=== PATIENT | male | born 1945 | race Caucasian/White ===

== ENCOUNTER 2017-02-07 12:18 | Inpatient (IN) | payer MEDICARE, BC, MEDICAID ==
[2017-02-07] MEDS ORDERED: Sodium Chloride 0.9% 10 ML Syringe FLUSH PRN (12:23)
--- NOTE | 2017-02-07 13:04 | CT ---
Head CT Technique: Multiple axial sections through the brain were obtained. Intravenous contrast was not utilized. Comparison: Previous head CT exam of 10/17/15 is available. Findings: Ventricles along with basal cisterns and sulci over the convexities are mildly prominent. Sulci over the cerebellum are also mildly prominent. No abnormal parenchymal densities are seen. No evidence of intracranial hemorrhage. No midline shift or mass effect is seen. Atherosclerotic calcification is seen within the carotid siphon. Bone window settings were reviewed which shows no discrete calvarial abnormality. Minimal mucosal thickening is seen within the right maxillary sinus and ethmoid sinuses. Impression: 1. Mild generalized atrophy. 2. Sinus findings which are felt to be incidental. 3. No acute intracranial abnormality is identified. No significant change is seen from prior head CT exam. Diagnostic code #2
--- NOTE | 2017-02-07 13:09 | CR ---
Chest: Frontal view of the chest was obtained. Comparison: Previous chest x-ray of 07/06/16. Heart size appears within normal limits for portable technique. Tortuous thoracic aorta is seen. Lungs are clear without acute infiltrates. Previous sternotomy noted. Bony structures are grossly intact. Impression: 1. Incidental findings. Nothing acute is appreciated on portable chest x-ray. Diagnostic code #2
[2017-02-07] MEDS ORDERED: diphenhydrAMINE 50 MG/ML SDV IVPUSH ONE (13:49)
[2017-02-07] MEDS ORDERED: Levofloxacin/Dextrose 5%-Water 500 MG in Premix Bag 1 BAG IV ONE (15:20)
--- NOTE | 2017-02-07 15:39 | EDM.PDOC ---
ED HPI GENERAL MEDICAL PROBLEM - General Chief Complaint: Neurological Problem Stated Complaint: [facility] Time Seen by Provider: 02/07/17 12:23 Source of Information: Reports: Patient, Family, Alf Records, Other ( [facility]) History Limitations: Reports: Other (Can't talk much due to parkinson) - History of Present Illness INITIAL COMMENTS - FREE TEXT/NARRATIVE: The patient presents with a headache and possible dystonic reaction. The patient is a resident of [facility]. He has Parkinson's and progressive supranuclear ophthalmoplegia. He is on carbodopa and levadopa and Dr Koroma increased the dose 6 days ago. Today staff noticed he was looking to the upper right and he had contractions. He also complained of a headache. He communicates by some talking and through a book. He had a low grade temperature. He has no cough, chest pain, shortness of breath, abdominal pain, nausea or vomiting. He does have a PEG tube and marshall cath. Onset: Gradual Duration: Day(s): Location: Reports: Head Quality: Reports: Ache Severity: Moderate Improves with: Reports: None Worsens with: Reports: None Associated Symptoms: Denies: Chest Pain, Cough, Fever/Chills, Nausea/Vomiting, Shortness of Breath - Related Data Allergies Allergy/AdvReac Type Severity Reaction Status Date / Time No Known Allergies Allergy Verified 02/07/17 12:32 Home Meds: Home Meds Sennosides [Senna] 8.6 mg PO BEDTIME 10/17/15 [History] Bisacodyl [Dulcolax] 10 mg RECTAL Q3D 03/21/16 [History] Cyclobenzaprine [Flexeril] 10 mg PO BID 03/21/16 [History] Sennosides/Docusate Sodium [Senna-Docusate Sodium] 1 tab PO BID 03/21/16 [ History] Triamcinolone Acetonide [Triamcinolone Acetonide 0.5%] 1 applic TOP BID PRN [History] Omeprazole 20 mg PO DAILY 05/09/16 [History] Acetaminophen 650 mg PO Q4H PRN 07/01/16 [History] Carbidopa/Levodopa [Carbidopa-Levodopa 25-100 Tab] 1 tab PO BID@1200,1800 [History] Lidocaine 5% 1 applic TOP Q4H PRN 07/01/16 [History] rOPINIRole HCl [Requip] 8 mg PO BID 07/01/16 [History] Carbidopa/Levodopa [Carbidopa-Levodopa 25-250] 1 tab PO BID@0800,199902/07/17 [ History] rOPINIRole HCl [rOPINIRole] 5 mg PO DAILY@1500 02/07/17 [History] Past Medical History HEENT History: Reports: Hard of Hearing, Impaired Vision Other HEENT History: Hearing aids Cardiovascular History: Reports: Bypass, High Cholesterol, Hypertension Other Cardiovascular History: 2002 x2 Respiratory History: Reports: Pneumonia, Recurrent, Other (See Below) Other Respiratory History: aspiration d/t difficulty swallowing Gastrointestinal History: Reports: Chronic Constipation Genitourinary History: Reports: Neurogenic Bladder, Retention, Urinary Other Genitourinary History: chronic marshall Musculoskeletal History: Reports: Back Pain, Chronic, Osteoarthritis Neurological History: Reports: Other (See Below) Other Neuro History: progressive supranuclearpalsy Psychiatric History: Reports: Depression, Mood Swings Endocrine/Metabolic History: Reports: Other (See Below) Other Endocrine/Metabolic History: Graves Hematologic History: Reports: None Dermatologic History: Reports: Venous Stasis Dermatitis - Past Surgical History HEENT Surgical History: Reports: Tonsillectomy, Other (See Below) Cardiovascular Surgical History: Reports: Coronary Artery Bypass Social & Family History - Family History Family Medical History: Noncontributory - Tobacco Use Smoking Status *Q: Unknown Ever Smoked Years of Tobacco use: 20 Used Tobacco, but Quit: Yes Month Tobacco Last Used: 1986 Second Hand Smoke Exposure: No - Caffeine Use Caffeine Use: Reports: None - Recreational Drug Use Recreational Drug Use: No - Living Situation & Occupation Occupation: Employed ED ROS GENERAL - Review of Systems Review Of Systems: See Below Constitutional: Reports: No Symptoms HEENT: Reports: No Symptoms Respiratory: Reports: No Symptoms Cardiovascular: Reports: No Symptoms Endocrine: Reports: No Symptoms GI/Abdominal: Reports: No Symptoms : Reports: No Symptoms Musculoskeletal: Reports: No Symptoms Neurological: Reports: Headache, Other (Looks up and to the right and has more contractions) ED EXAM, NEURO - Physical Exam Exam: See Below Exam Limited By: No Limitations General Appearance: Alert, No Apparent Distress Eye Exam: Bilateral Eye: EOMI, PERRL Ears: Normal External Exam Nose: Normal Inspection Head Exam: Atraumatic, Normocephalic Neck: Normal Inspection Respiratory/Chest: No Respiratory Distress, Lungs Clear, Normal Breath Sounds Cardiovascular: Regular Rate, Rhythm, No Edema, No Murmur GI/Abdominal: Soft, Non-Tender, No Organomegaly, No Mass, Other (PEG tube in place with no erythema or drainage) Neurological: Alert, Other (He has bilateral 3/5 strength. He had a few episodes where he looked up and right and he had flexion of his arms. He also had some facial expresions with it.) Course - Vital Signs Last Recorded V/S: Last Vital Signs Temp 98.6 F 02/07/17 12:28 Pulse 89 02/07/17 12:28 Resp 16 02/07/17 12:28 BP 102/69 02/07/17 12:28 Pulse Ox 93 L 02/07/17 12:28 - Orders/Labs/Meds Orders: Active Orders 24 hr Category Date Time Status Cardiac Monitoring [RC] . DIRECTED Care 02/07/17 12:23 Active Peripheral IV Care [RC] . DIRECTED Care 02/07/17 12:23 Active CULTURE BLOOD [BC] Stat Lab 02/07/17 15:40 Received CULTURE BLOOD [BC] Stat Lab 02/07/17 15:49 Received CULTURE URINE [RM] Stat Lab 02/07/17 14:20 Received Sodium Chloride 0.9% [Saline Flush] Med 02/07/17 12:23 Active 10 ml FLUSH ASDIRECTED PRN Blood Culture x2 Reflex Set [OM.PC] Stat Oth 02/07/17 15:19 Ordered Peripheral IV Insertion Adult [OM.PC] Stat Oth 02/07/17 12:23 Ordered Medication Orders Sodium Chloride (Saline Flush) 10 ml FLUSH ASDIRECTED PRN PRN Reason: Keep Vein Open Last Admin: 02/07/17 12:39 Dose: 10 ml Labs: Laboratory Tests 02/07/17 02/07/17 02/07/17 Range/Units 12:44 12:44 14:17 WBC 9.41 H (4.23-9.07) K/mm3 RBC 4.44 L (4.63-6.08) M/mm3 Hgb 14.5 (13.7-17.5) gm/L Hct 42.7 (40.1-51.0) % MCV 96.2 H (79.0-92.2) fl MCH 32.7 H (25.7-32.2) pg MCHC 34.0 (32.2-35.5) g/dl RDW Std Deviation 44.4 H (35.1-43.9) fL Plt Count 208 (163-337) K/mm3 MPV 10.2 (9.4-12.3) fl Neut % (Auto) 69.5 H (34.0-67.9) % Lymph % (Auto) 19.9 L (21.8-53.1) % Humphreys % (Auto) 9.1 (5.3-12.2) % Eos % (Auto) 1.0 (0.8-7.0) Baso % (Auto) 0.3 (0.1-1.2) % Neut # (Auto) 6.54 H (1.78-5.38) K/mm3 Lymph # (Auto) 1.87 (1.32-3.57) K/mm3 Humphreys # (Auto) 0.86 H (0.30-0.82) K/mm3 Eos # (Auto) 0.09 (0.04-0.54) K/mm3 Baso # (Auto) 0.03 (0.01-0.08) K/mm3 Sodium 141 (136-145) mEq/L Potassium 3.8 (3.5-5.1) mEq/L Chloride 106 (98-107) mEq/L Carbon Dioxide 26 (21-32) mEq/L Anion Gap 12.8 (5-15) BUN 28 H (7-18) mg/dL Creatinine 1.2 (0.7-1.3) mg/dL Est Cr Clr Drug Dosing 62.87 mL/min Estimated GFR (MDRD) 60 (>60) mL/min BUN/Creatinine Ratio 23.3 H (14-18) Glucose 110 (80-115) mg/dL Calcium 9.0 (8.5-10.1) mg/dL Total Bilirubin 2.2 H (0.2-1.0) mg/dL AST 19 (15-37) U/L ALT 13 L (16-63) U/L Alkaline Phosphatase 125 H (46-116) U/L Troponin I < 0.017 (0.00-0.056) ng/mL Total Protein 7.1 (6.4-8.2) g/dl Albumin 3.6 (3.4-5.0) g/dl Globulin 3.5 gm/dL Albumin/Globulin Ratio 1.0 (1-2) Urine Color Yellow (Yellow) Urine Appearance Slt cloudy H (Clear) Urine pH 8.0 (5.0-8.0) Ur Specific Raven 1.020 (1.005-1.030) Urine Protein 1+ H (Negative) Urine Glucose (UA) Negative (Negative) Urine Ketones Negative (Negative) Urine Occult Blood 1+ H (Negative) Urine Nitrite Positive H (Negative) Urine Bilirubin Negative (Negative) Urine Urobilinogen 2.0 H (0.2-1.0) Ur Leukocyte Esterase 2+ H (Negative) Urine RBC 5-10 H (0-5) /hpf Urine WBC 75-100 H (0-5) /hpf Urine WBC Clumps Few (NOT SEEN) /hpf Ur Epithelial Cells 0-5 (0-5) /hpf Urine Bacteria Many H (FEW) /hpf Urine Mucus Not seen (FEW) /hpf Urine Yeast Not seen (NOT SEEN) Meds: Medications Generic Name Dose Route Start Last Admin Trade Name Freq PRN Reason Stop Dose Admin Sodium Chloride 10 ml 02/07/17 12:23 02/07/17 12:39 Saline Flush FLUSH 10 ml ASDIRECTED PRN Administration Keep Vein Open Discontinued Medications Generic Name Dose Route Start Last Admin Trade Name Freq PRN Reason Stop Dose Admin Diphenhydramine HCl 25 mg 02/07/17 13:49 02/07/17 13:56 Benadryl IVPUSH 02/07/17 13:50 25 mg ONETIME ONE Administration Hydromorphone HCl 0.5 mg 02/07/17 16:34 02/07/17 16:40 Dilaudid IVPUSH 02/07/17 16:35 0.5 mg ONETIME ONE Administration Levofloxacin/Dextrose 500 mg/ 100 mls @ 100 mls/hr 02/07/17 15:20 02/07/17 16 :18 Premix IV 02/07/17 16:19 100 mls/hr ONETIME ONE Administration - Re-Assessments/Exams Free Text/Narrative Re-Assessment/Exam: 02/07/17 18:23 I ordered an IV NS at 125mL/hr, labs, UA, CT of his head and chest x-ray. His CXR looks good. His CT of his brain shows mild generalized atrophy. Sinus finding which are felt to be incidental. No acute intracranial abnormality is identified. No change from prior CT. His WBC was elevated at 9.41. His Alk Phos was elevated at 125. His troponin is negative. His UA shows a UTI. I ordered urine cultures and blood cultures. He was having more contractures that looked tardive dyskinesia from the medicine. I gave him some benadryl 50mg IV and some levaquin 500mg IV. I talked with Dr Martínez and she accepted the patient. Departure - Departure Time of Disposition: 18:30 Disposition: Admitted As Inpatient 67 Condition: Fair Clinical Impression: Tardive dyskinesia, Parkinson disease Urinary tract infection Qualifiers: Urinary tract infection type: acute cystitis Hematuria presence: with hematuria Qualified Code(s): N30.01 - Acute cystitis with hematuria - Discharge Information - My Orders Last 24 Hours: My Active Orders 02/07/17 12:23 Cardiac Monitoring [RC] . DIRECTED Peripheral IV Care [RC] . DIRECTED Sodium Chloride 0.9% [Saline Flush] 10 ml FLUSH ASDIRECTED PRN Peripheral IV Insertion Adult [OM.PC] Stat 02/07/17 14:20 CULTURE URINE [RM] Stat 02/07/17 15:19 Blood Culture x2 Reflex Set [OM.PC] Stat 02/07/17 15:40 CULTURE BLOOD [BC] Stat 02/07/17 15:49 CULTURE BLOOD [BC] Stat - Assessment/Plan Last 24 Hours: My Active Orders 02/07/17 12:23 Cardiac Monitoring [RC] . DIRECTED Peripheral IV Care [RC] . DIRECTED Sodium Chloride 0.9% [Saline Flush] 10 ml FLUSH ASDIRECTED PRN Peripheral IV Insertion Adult [OM.PC] Stat 02/07/17 14:20 CULTURE URINE [RM] Stat 02/07/17 15:19 Blood Culture x2 Reflex Set [OM.PC] Stat 02/07/17 15:40 CULTURE BLOOD [BC] Stat 02/07/17 15:49 CULTURE BLOOD [BC] Stat
[2017-02-07] MEDS ORDERED: HYDROmorphone 0.5 MG/0.5 ML Syringe IVPUSH ONE (16:34)
[2017-02-07] MEDS ORDERED: LIDOCAINE 5% TOP PRN (19:59)
[2017-02-07] MEDS ORDERED: Triamcinolone Acetonide 0.5% Crm 15 GM Tube TOP PRN (19:59)
--- NOTE | 2017-02-07 19:59 | PCM.HP ---
H&P History of Present Illness - General Date of Service: 02/07/17 Admit Problem/Dx: Admission Diagnosis/Problem Admission Diagnosis/Problem UTI, Urinary tract infectious disease Source of Information: Family, Provider History Limitations: Reports: No Limitations - History of Present Illness Initial Comments - Free Text/Narative: 71 year old male with PMH Parkinson's, and Supranuclear Palsy has had a progression of his neurologic symptoms. He complains of a headache and has been having dystonic reactions. His PCP has recently been adjusting his medication. The patient has a AUTI, and will be admitted for treatment. He has a PEG tube that was placed approximately June 2016 and is currently on Jevity as well as free water. He aslo continues to eat by mouth nectar thick liquids and mechanical soft diet. Onset of Symptoms: Reports: Unknown/Unsure Duration of Symptoms: Reports: Day(s):, Getting Worse Location: Reports: Generalized Quality: Reports: Same as Previous Episode Improves with: Reports: Medication Worsens with: Reports: None Associated Symptoms: Reports: Confusion, Headaches - Related Data Allergies/Adverse Reactions: Allergies Allergy/AdvReac Type Severity Reaction Status Date / Time No Known Allergies Allergy Verified 02/07/17 12:32 Home Medications: Home Meds Sennosides [Senna] 8.6 mg PO BEDTIME 10/17/15 [History] Bisacodyl [Dulcolax] 10 mg RECTAL Q3D 03/21/16 [History] Cyclobenzaprine [Flexeril] 10 mg PO BID 03/21/16 [History] Sennosides/Docusate Sodium [Senna-Docusate Sodium] 1 tab PO BID 03/21/16 [ History] Triamcinolone Acetonide [Triamcinolone Acetonide 0.5%] 1 applic TOP BID PRN [History] Omeprazole 20 mg PO DAILY 05/09/16 [History] Acetaminophen 650 mg PO Q4H PRN 07/01/16 [History] Carbidopa/Levodopa [Carbidopa-Levodopa 25-100 Tab] 25 - 100 mg PO BID@1200,1800 07/01/16 [History] Lidocaine 5% 1 applic TOP Q4H PRN 07/01/16 [History] rOPINIRole HCl [Requip] 10 mg PO ,07/01/16 [History] Carbidopa/Levodopa [Carbidopa-Levodopa 25-250] 25 - 250 mg PO BID@0800,2000 [History] rOPINIRole HCl [Requip] 2 mg PO BID 02/07/17 [History] rOPINIRole HCl [rOPINIRole] 5 mg PO DAILY@1500 02/07/17 [History] Arginine/Glutamine/Calcium Hmb [Mayito Packet] 1 pack PO BIDMEALS 02/08/17 [ History] Bisacodyl [Dulcolax] 10 mg PO DAILY PRN 02/08/17 [History] Fructooligosaccharides/Polydex [Hyfiber with Fos Liquid] 1 oz PO DAILY 02/08/17 [History] Lactose-Reduced Food [Boost] 4 oz PO TIDMEALS 02/08/17 [History] Lactose-Reduced Food/Fiber [Jevity 1.5 Garth Liquid] 100 ml PO BIDMEALS 02/08/17 [ History] Lidocaine 5% 1 applic TOP BID PRN 02/08/17 [History] Mupirocin Oint [Bactroban Oint] 1 applic PEGTUBE DAILY 02/08/17 [History] Water 30 ml PEGTUBE BID 02/08/17 [History] Past Medical History HEENT History: Reports: Hard of Hearing, Impaired Vision Other HEENT History: Hearing aids Cardiovascular History: Reports: Bypass, High Cholesterol, Hypertension Other Cardiovascular History: 2002 Respiratory History: Reports: Pneumonia, Recurrent, Other (See Below) Other Respiratory History: aspiration d/t difficulty swallowing Gastrointestinal History: Reports: Chronic Constipation Genitourinary History: Reports: Neurogenic Bladder, Retention, Urinary Other Genitourinary History: chronic marshall Musculoskeletal History: Reports: Back Pain, Chronic, Osteoarthritis Neurological History: Reports: Other (See Below) Other Neuro History: progressive supranuclearpalsy Psychiatric History: Reports: Depression, Mood Swings Endocrine/Metabolic History: Reports: Other (See Below) Other Endocrine/Metabolic History: Graves Hematologic History: Reports: None Dermatologic History: Reports: Venous Stasis Dermatitis - Past Surgical History HEENT Surgical History: Reports: Tonsillectomy, Other (See Below) Cardiovascular Surgical History: Reports: Coronary Artery Bypass Social & Family History - Family History Family Medical History: Noncontributory - Tobacco Use Smoking Status *Q: Unknown Ever Smoked Years of Tobacco use: 20 Used Tobacco, but Quit: Yes Month Tobacco Last Used: 1986 Second Hand Smoke Exposure: No - Caffeine Use Caffeine Use: Reports: None - Recreational Drug Use Recreational Drug Use: No - Living Situation & Occupation Occupation: Employed H&P Review of Systems - Review of Systems: Review Of Systems: See Below General: Reports: Weakness HEENT: Reports: No Symptoms Pulmonary: Reports: No Symptoms Cardiovascular: Reports: No Symptoms Gastrointestinal: Reports: No Symptoms Genitourinary: Reports: No Symptoms Musculoskeletal: Reports: No Symptoms Skin: Reports: No Symptoms Psychiatric: Reports: No Symptoms Neurological: Reports: No Symptoms Hematologic/Lymphatic: Reports: No Symptoms Immunologic: Reports: No Symptoms Exam - Exam Exam: See Below - Vital Signs Vital Signs: Last Vital Signs Temp 37.0 C 02/07/17 12:28 Pulse 89 02/07/17 12:28 Resp 16 02/07/17 12:28 BP 102/69 02/07/17 12:28 Pulse Ox 93 L 02/07/17 12:28 Weight: 87.997 kg - Exam Quality Assessment: Urinary Catheter General: Alert, Oriented, Cooperative HEENT: Nares Patent, Normal Nasal Septum, Pupils Equal, Pupils Reactive, Glasses , PERRLA Neck: Supple, Trachea Midline Lungs: Normal Respiratory Effort, Decreased Breath Sounds Cardiovascular: Regular Rate, Regular Rhythm GI/Abdominal Exam: Normal Bowel Sounds, Soft, Non-Tender, No Organomegaly, No Distention (Male) Exam: Deferred Rectal (Males) Exam: Deferred Back Exam: Normal Inspection Extremities: Normal Inspection, Non-Tender Skin: Warm Neurological: Cranial Nerves Intact Neuro Extensive - Mental Status: Alert Neuro Extensive - Motor, Sensory, Reflexes: CN II-XII Intact Psychiatric: Alert - Patient Data Result Diagrams: 02/08/17 05:49 02/08/17 05:49 *Q Meaningful Use (ADM) - VTE *Q VTE Criteria *Q: - Stroke *Q Stroke Criteria *Q: - AMI *Q AMI Criteria *Q: - Problem List (1) Marshall catheter in place SNOMED Code(s): 306033568 ICD Code: Z92.89 - PERSONAL HISTORY OF OTHER MEDICAL TREATMENT Status: Acute Current Visit: Yes (2) Supranuclear palsy SNOMED Code(s): 89167741 ICD Code: G23.1 - PROGRESSIVE SUPRANUCLEAR OPHTHALMOPLEGIA Status: Acute Current Visit: Yes (3) Hypertension SNOMED Code(s): 63898825 ICD Code: I10 - ESSENTIAL (PRIMARY) HYPERTENSION Status: Acute Current Visit: Yes (4) Hyperlipidemia SNOMED Code(s): 70603220 ICD Code: E78.5 - HYPERLIPIDEMIA, UNSPECIFIED Status: Acute Current Visit : Yes (5) CAD (coronary artery disease) SNOMED Code(s): 51884590 ICD Code: I25.10 - ATHSCL HEART DISEASE OF [place] CORONARY ARTERY W/O ANG PCTRS Status: Acute Current Visit: Yes (6) Parkinson disease SNOMED Code(s): 57104044 ICD Code: G20 - PARKINSON'S DISEASE Status: Acute Current Visit: Yes (7) Tardive dyskinesia SNOMED Code(s): 120378143 ICD Code: G24.01 - DRUG INDUCED SUBACUTE DYSKINESIA Status: Acute Current Visit: Yes (8) Urinary tract infection SNOMED Code(s): 27500578 ICD Code: N39.0 - URINARY TRACT INFECTION, SITE NOT SPECIFIED Status: Acute Priority: High Current Visit: Yes Qualifiers: Urinary tract infection type: acute cystitis Hematuria presence: with hematuria Qualified Code(s): N30.01 - Acute cystitis with hematuria Problem List Initiated/Reviewed/Updated: Yes Orders Last 24hrs: Active Orders 24 hr Category Date Time Status Patient Status [ADT] Routine ADT 02/07/17 19:07 Active Medication Orders Sodium Chloride (Saline Flush) 10 ml FLUSH ASDIRECTED PRN PRN Reason: Keep Vein Open Last Admin: 02/07/17 12:39 Dose: 10 ml Assessment/Plan Comment:: Impression: AUTI Progression of Parkinson's 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 DVT/GI prophylaxis
[2017-02-07] MEDS ORDERED: Sodium Chloride 0.9% 1,000 ML IV ONE ×2 (20:08→23:21)
[2017-02-07] MEDS ORDERED: rOPINIRole 1 MG Tab PO SCH (21:00)
[2017-02-07] MEDS: Cyclobenzaprine 10 MG Tab PO SCH (22:52)
[2017-02-07] MEDS: Bisacodyl 10 MG Supp RECTAL SCH (22:58)
[2017-02-07] MEDS ORDERED: ROPINIROLE 4 MG PO SCH (23:00)
[2017-02-07] MEDS ORDERED: Carbidopa/Levodopa 10-100 MG Tab PO ONE (23:56)
[2017-02-08] MEDS ORDERED: ROPINIROLE 2 MG PO SCH ×2 (00:15→07:00)
[2017-02-08] MEDS: Carbidopa/Levodopa 25-250 MG Tab PO SCH ×2 (00:21→12:05)
[2017-02-08] MEDS: Sodium Chloride 0.9% 1,000 ML IV ONE ×2 (00:38→07:35)
[2017-02-08] MEDS ORDERED: Sodium Chloride 0.9% 1,000 ML IV SCH (00:41)
[2017-02-08] MEDS: Pantoprazole 40 MG Tab.CR PO SCH (07:01)
[2017-02-08] MEDS: Sodium Chloride 0.9% 1,000 ML IV SCH ×2 (07:04→17:24)
[2017-02-08] MEDS: Cyclobenzaprine 10 MG Tab PO SCH ×2 (08:18→20:03)
[2017-02-08] MEDS: Enoxaparin 40 MG/0.4 ML Syringe SUBCUT SCH (08:18)
[2017-02-08] MEDS: Mupirocin Oint 22 GM Tube TOP SCH (11:38)
[2017-02-08] MEDS: WATER SCH ×2 (11:39→20:04)
[2017-02-08] MEDS: Carbidopa/Levodopa 25-100 MG Tab PO SCH ×4 (11:39→20:03)
[2017-02-08] MEDS ORDERED: Magnesium Sulfate/Water 2 GM in Premix Bag 1 BAG IV ONE (11:41)
[2017-02-08] MEDS ORDERED: Magnesium Hydroxide 400 MG/5 ML Susp 30 ML Cup PO ONE (12:07)
[2017-02-08] MEDS: Levofloxacin/Dextrose 5%-Water 750 MG in Premix Bag 1 BAG IV SCH (13:04)
[2017-02-08] MEDS ORDERED: rOPINIRole 1 MG Tab PO SCH (15:00)
[2017-02-08] MEDS ORDERED: ROPINIROLE 5 MG PO SCH (15:00)
[2017-02-08] MEDS: Acetaminophen 325 MG Tab PO PRN (17:23)
--- NOTE | 2017-02-08 19:39 | PCM.PN ---
- General Info Date of Service: 02/08/17 Functional Status: Reports: Tolerating Diet - Review of Systems General: Reports: Weakness HEENT: Reports: No Symptoms Pulmonary: Reports: No Symptoms Cardiovascular: Reports: No Symptoms Gastrointestinal: Reports: No Symptoms Genitourinary: Reports: No Symptoms Musculoskeletal: Reports: No Symptoms Skin: Reports: No Symptoms Neurological: Reports: No Symptoms Psychiatric: Reports: No Symptoms - Patient Data Vitals - Most Recent: Last Vital Signs Temp 37.7 C 02/08/17 17:23 Pulse 90 02/08/17 15:49 Resp 14 02/08/17 15:49 BP 132/80 02/08/17 15:49 Pulse Ox 93 L 02/08/17 15:49 Weight - Most Recent: 87.997 kg I&O - Last 24 Hours: Intake & Output 02/08/17 02/08/17 02/08/17 06:59 14:59 22:59 Intake Total 2255 1747 Output Total 1600 900 Balance 655 847 Lab Results Last 24 Hours: Laboratory Results - last 24 hr 02/08/17 02/08/17 02/08/17 Range/Units 00:45 05:49 05:49 WBC 8.19 (4.23-9.07) K/mm3 RBC 4.35 L (4.63-6.08) M/mm3 Hgb 14.4 (13.7-17.5) gm/L Hct 42.0 (40.1-51.0) % MCV 96.6 H (79.0-92.2) fl MCH 33.1 H (25.7-32.2) pg MCHC 34.3 (32.2-35.5) g/dl RDW Std Deviation 44.4 H (35.1-43.9) fL Plt Count 193 (163-337) K/mm3 MPV 10.7 (9.4-12.3) fl Neut % (Auto) 65.0 (34.0-67.9) % Lymph % (Auto) 23.9 (21.8-53.1) % [place] % (Auto) 9.2 (5.3-12.2) % Eos % (Auto) 1.5 (0.8-7.0) Baso % (Auto) 0.4 (0.1-1.2) % Neut # (Auto) 5.33 (1.78-5.38) K/mm3 Lymph # (Auto) 1.96 (1.32-3.57) K/mm3 [place] # (Auto) 0.75 (0.30-0.82) K/mm3 Eos # (Auto) 0.12 (0.04-0.54) K/mm3 Baso # (Auto) 0.03 (0.01-0.08) K/mm3 Sodium 141 (136-145) mEq/L Potassium 4.0 (3.5-5.1) mEq/L Chloride 108 H (98-107) mEq/L Carbon Dioxide 23 (21-32) mEq/L Anion Gap 14.0 (5-15) BUN 21 H (7-18) mg/dL Creatinine 1.1 (0.7-1.3) mg/dL Est Cr Clr Drug Dosing 68.59 mL/min Estimated GFR (MDRD) > 60 (>60) mL/min BUN/Creatinine Ratio 19.1 H (14-18) Glucose 86 (80-115) mg/dL Lactic Acid (0.4-2.0) mmol/L Calcium 8.3 L (8.5-10.1) mg/dL Magnesium 1.5 L (1.8-2.4) mg/dl C-Reactive Protein 0.4 (<1.0) mg/dL MRSA (PCR) Negative 02/08/17 Range/Units 05:49 WBC (4.23-9.07) K/mm3 RBC (4.63-6.08) M/mm3 Hgb (13.7-17.5) gm/L Hct (40.1-51.0) % MCV (79.0-92.2) fl MCH (25.7-32.2) pg MCHC (32.2-35.5) g/dl RDW Std Deviation (35.1-43.9) fL Plt Count (163-337) K/mm3 MPV (9.4-12.3) fl Neut % (Auto) (34.0-67.9) % Lymph % (Auto) (21.8-53.1) % [place] % (Auto) (5.3-12.2) % Eos % (Auto) (0.8-7.0) Baso % (Auto) (0.1-1.2) % Neut # (Auto) (1.78-5.38) K/mm3 Lymph # (Auto) (1.32-3.57) K/mm3 [place] # (Auto) (0.30-0.82) K/mm3 Eos # (Auto) (0.04-0.54) K/mm3 Baso # (Auto) (0.01-0.08) K/mm3 Sodium (136-145) mEq/L Potassium (3.5-5.1) mEq/L Chloride (98-107) mEq/L Carbon Dioxide (21-32) mEq/L Anion Gap (5-15) BUN (7-18) mg/dL Creatinine (0.7-1.3) mg/dL Est Cr Clr Drug Dosing mL/min Estimated GFR (MDRD) (>60) mL/min BUN/Creatinine Ratio (14-18) Glucose (80-115) mg/dL Lactic Acid 0.6 (0.4-2.0) mmol/L Calcium (8.5-10.1) mg/dL Magnesium (1.8-2.4) mg/dl C-Reactive Protein (<1.0) mg/dL MRSA (PCR) Med Orders - Current: Current Medications Acetaminophen (Tylenol) 650 mg PO Q4H PRN PRN Reason: Pain Last Admin: 02/08/17 17:23 Dose: 650 mg Bisacodyl (Dulcolax) 10 mg RECTAL Q3D [facility] Last Admin: 02/07/17 22:58 Dose: 10 mg Carbidopa/Levodopa (Sinemet 25-100 Mg) 1 tab PO QID [facility] Last Admin: 02/08/17 17:24 Dose: 1 tab Cyclobenzaprine HCl (Flexeril) 10 mg PO BID [facility] Last Admin: 02/08/17 08:18 Dose: 10 mg Enoxaparin Sodium (Lovenox) 40 mg SUBCUT DAILY [facility] Last Admin: 02/08/17 08:18 Dose: 40 mg Levofloxacin/Dextrose 750 mg/ (Premix) 150 mls @ 100 mls/hr IV Q24H [facility] Last Admin: 02/08/17 13:04 Dose: 100 mls/hr Sodium Chloride (Normal Saline) 1,000 mls @ 70 mls/hr IV ASDIRECTED [facility] Last Admin: 02/08/17 17:24 Dose: 70 mls/hr Vancomycin HCl 1 gm/ Sodium (Chloride) 250 mls @ 250 mls/hr IV Q12H [facility] Mupirocin (Bactroban Oint) 0 gm TOP DAILY [facility] Last Admin: 02/08/17 11:38 Dose: 1 applic Non-Formulary Medication (Ropinirole Hcl) 2 mg PO BID [facility] Pantoprazole Sodium (Protonix) 40 mg PO DAILY@0700 [facility] Last Admin: 02/08/17 07:01 Dose: 40 mg Lidocaine 5% 1 (Ointment) 0 each TOP Q4H PRN PRN Reason: Other Ropinirole 5 Mg Tab (Patient's Own) 0 each PO DAILY@1500 [facility] Last Admin: 02/08/17 14:47 Dose: 1 each Ropinirole 2 Mg Tab (Patient's Own) 0 each PO BID@0700,2100 [facility] Water 30 Ml 0 each .XX BID [facility] Last Admin: 02/08/17 11:39 Dose: 30 each Senna/Docusate Sodium (Senna Plus) 1 tab PO BID [facility] Last Admin: 02/08/17 08:18 Dose: 1 tab Sodium Chloride (Saline Flush) 10 ml FLUSH ASDIRECTED PRN PRN Reason: Keep Vein Open Last Admin: 02/07/17 12:39 Dose: 10 ml Triamcinolone Acetonide (Triamcinolone Acetonide 0.5%) 0 gm TOP BID PRN PRN Reason: psoriasis Vancomycin HCl (Pharmacy To Dose - Vancomycin) 1 dose .XX ASDIRECTED [facility] Discontinued Medications Carbidopa/Levodopa (Sinemet 25-250 Mg) 1 tab PO BID@0800,2000 [facility] Last Admin: 02/08/17 12:05 Dose: Not Given Carbidopa/Levodopa (Sinemet 10-100 Mg) 2 tab PO ONETIME ONE Stop: 02/07/17 23:57 Last Admin: 02/08/17 00:21 Dose: 2 tab Diphenhydramine HCl (Benadryl) 25 mg IVPUSH ONETIME ONE Stop: 02/07/17 13:50 Last Admin: 02/07/17 13:56 Dose: 25 mg Hydromorphone HCl (Dilaudid) 0.5 mg IVPUSH ONETIME ONE Stop: 02/07/17 16:35 Last Admin: 02/07/17 16:40 Dose: 0.5 mg Levofloxacin/Dextrose 500 mg/ (Premix) 100 mls @ 100 mls/hr IV ONETIME ONE Stop: 02/07/17 16:19 Last Admin: 02/07/17 16:18 Dose: 100 mls/hr Sodium Chloride (Normal Saline) 1,000 mls @ 999 mls/hr IV ASDIRECTED ONE Stop: 02/07/17 21:08 Last Admin: 02/07/17 21:46 Dose: 999 mls/hr Sodium Chloride (Normal Saline) 1,000 mls @ 100 mls/hr IV ONETIME ONE Stop: 02/08/17 09:20 Last Admin: 02/07/17 23:36 Dose: 999 mls/hr Sodium Chloride (Normal Saline) 1,000 mls @ 70 mls/hr IV ASDIRECTED ONE Stop: 02/08/17 13:38 Last Admin: 02/08/17 07:35 Dose: Not Given Sodium Chloride (Normal Saline) 1,000 mls @ 100 mls/hr IV ASDIRECTED [facility] Stop: 02/08/17 06:41 Last Admin: 02/08/17 00:50 Dose: 100 mls/hr Magnesium Sulfate 2 gm/ Premix 50 mls @ 25 mls/hr IV ONETIME ONE Stop: 02/08/17 13:40 Last Admin: 02/08/17 14:47 Dose: 25 mls/hr Vancomycin HCl 1 gm/ Sodium (Chloride) 250 mls @ 250 mls/hr IV ONETIME ONE Stop: 02/08/17 19:21 Magnesium Hydroxide (Milk Of Magnesia) 30 ml PO ONETIME ONE Stop: 02/08/17 12:08 Last Admin: 02/08/17 13:04 Dose: 30 ml Ropinirole 4mg Tab * (*Patient's Own) 2 each PO BID@0700,2100 [facility] Last Admin: 02/08/17 07:28 Dose: Not Given Ropinirole 2 Mg Tab (Patient's Own) 1 each PO BID [facility] Last Admin: 02/08/17 00:22 Dose: 1 each Ropinirole 2 Mg Tab (Patient's Own) 1 each PO BID@0700,2100 [facility] Last Admin: 02/08/17 07:02 Dose: 1 each Non-Formulary Medication (Lactose-Reduced Food/Fiber [Jevity 1.5 Garth Liquid]) 100 ml PO BIDMEALS [facility] Ropinirole HCl (Requip) 5 mg PO DAILY@1500 [facility] Ropinirole HCl (Requip) 8 mg PO BID [facility] Last Admin: 02/08/17 07:28 Dose: Not Given - Exam Quality Assessment: DVT Prophylaxis General: Alert, Oriented, No Acute Distress HEENT: Pupils Reactive, EOMI Lungs: Normal Respiratory Effort Cardiovascular: Regular Rate GI/Abdominal Exam: Normal Bowel Sounds, Soft, Non-Tender, No Organomegaly, No Distention (Male) Exam: Deferred Back Exam: Normal Inspection Extremities: Normal Inspection Skin: Warm Neurological: No New Focal Deficit Psy/Mental Status: Alert, Normal Affect, Normal Mood - Problem List & Annotations (1) Rubin catheter in place SNOMED Code(s): 458386882 Code(s): Z92.89 - PERSONAL HISTORY OF OTHER MEDICAL TREATMENT Status: Acute Current Visit: Yes (2) Supranuclear palsy SNOMED Code(s): 10956061 Code(s): G23.1 - PROGRESSIVE SUPRANUCLEAR OPHTHALMOPLEGIA Status: Acute Current Visit: Yes (3) Hypertension SNOMED Code(s): 35211203 Code(s): I10 - ESSENTIAL (PRIMARY) HYPERTENSION Status: Acute Current Visit: Yes (4) Hyperlipidemia SNOMED Code(s): 94767251 Code(s): E78.5 - HYPERLIPIDEMIA, UNSPECIFIED Status: Acute Current Visit : Yes (5) CAD (coronary artery disease) SNOMED Code(s): 22414336 Code(s): I25.10 - ATHSCL HEART DISEASE OF [place] CORONARY ARTERY W/O ANG PCTRS Status: Acute Current Visit: Yes (6) Parkinson disease SNOMED Code(s): 66711355 Code(s): G20 - PARKINSON'S DISEASE Status: Acute Current Visit: Yes (7) Tardive dyskinesia SNOMED Code(s): 140827366 Code(s): G24.01 - DRUG INDUCED SUBACUTE DYSKINESIA Status: Acute Current Visit: Yes (8) Urinary tract infection SNOMED Code(s): 28934305 Code(s): N39.0 - URINARY TRACT INFECTION, SITE NOT SPECIFIED Status: Acute Priority: High Current Visit: Yes Qualifiers: Urinary tract infection type: acute cystitis Hematuria presence: with hematuria Qualified Code(s): N30.01 - Acute cystitis with hematuria - Problem List Review Problem List Initiated/Reviewed/Updated: Yes - My Orders Last 24 Hours: My Active Orders 02/07/17 19:59 Acetaminophen [Tylenol] 650 mg PO Q4H PRN Patient's Own Medication [Ptom] 0 each TOP Q4H PRN Triamcinolone Acetonide [Triamcinolone Acetonide 0.5%] 0 gm TOP BID PRN 02/07/17 20:00 Bisacodyl [Dulcolax] 10 mg RECTAL Q3D 02/07/17 20:03 Bedrest [RC] QSHIFT Vital Signs [RC] 03,,,02/07/17 20:06 Neuro Check [RC] BID 02/07/17 20:12 Consult to Case Management [CONS] Routine Consult to Occupational Therapy [OT Evaluation and Treatment] [CONS] Routine Consult to Physical Therapy [PT Evaluation and Treatment] [CONS] Routine 02/07/17 20:13 Antiembolic Devices [RC] DAILY AMANDA Hose [Antiembolic Hose] [OM.PC] Routine 02/07/17 20:14 Aspiration Precautions [RC] QSHIFT Head of Bed Elevation [RC] QSHIFT 02/07/17 20:29 Swallow Screen [Nursing Bedside Swallow Screen] [RC] ASDIRECTED 02/07/17 20:37 Code Status [Resuscitation Status] Routine 02/07/17 21:00 Cyclobenzaprine [Flexeril] 10 mg PO BID Docusate Sodium/Sennosides [Senna Plus] 1 tab PO BID 02/08/17 06:42 Sodium Chloride 0.9% [Normal Saline] 1,000 ml IV ASDIRECTED 02/08/17 07:00 Pantoprazole [ProTONIX] 40 mg PO DAILY@0700 02/08/17 07:03 Patient's Own Medication [Ptom] 0 each PO BID@0700,2100 02/08/17 09:00 Enoxaparin [Lovenox] 40 mg SUBCUT DAILY 02/08/17 11:20 Up to Chair [RC] ASDIRECTED 02/08/17 12:00 Carbidopa/Levodopa [Sinemet 25-100 mg] 1 tab PO QID 02/08/17 14:00 Levofloxacin/Dextrose 5%-Water [Levaquin in D5W 750 MG/150 ML] 750 mg Premix Bag 1 bag IV Q24H 02/08/17 15:00 Patient's Own Medication [Ptom] 0 each PO DAILY@1500 02/08/17 18:30 Vancomycin Pharmacy to Dose [Pharmacy to Dose - Vancomycin] 1 dose .XX ASDIRECTED 02/08/17 21:00 rOPINIRole HCl 2 mg PO BID 02/08/17 Lunch National Dysphagia Diet [DIET] 02/09/17 05:00 BASIC METABOLIC PANEL,BMP [CHEM] DAILY CBC WITH AUTO DIFF [HEME] DAILY CRP [C-REACTIVE PROTEIN] [CHEM] DAILY LACTIC ACID [CHEM] DAILY MG [MAGNESIUM] [CHEM] DAILY 02/09/17 08:00 Vancomycin 1 gm Sodium Chloride 0.9% [Normal Saline] 250 ml IV Q12H 02/10/17 05:00 BASIC METABOLIC PANEL,BMP [CHEM] DAILY CBC WITH AUTO DIFF [HEME] DAILY CRP [C-REACTIVE PROTEIN] [CHEM] DAILY LACTIC ACID [CHEM] DAILY MG [MAGNESIUM] [CHEM] DAILY 02/11/17 05:00 BASIC METABOLIC PANEL,BMP [CHEM] DAILY CBC WITH AUTO DIFF [HEME] DAILY CRP [C-REACTIVE PROTEIN] [CHEM] DAILY MG [MAGNESIUM] [CHEM] DAILY 02/12/17 05:00 BASIC METABOLIC PANEL,BMP [CHEM] DAILY CBC WITH AUTO DIFF [HEME] DAILY CRP [C-REACTIVE PROTEIN] [CHEM] DAILY MG [MAGNESIUM] [CHEM] DAILY 02/13/17 05:00 BASIC METABOLIC PANEL,BMP [CHEM] DAILY CBC WITH AUTO DIFF [HEME] DAILY CRP [C-REACTIVE PROTEIN] [CHEM] DAILY MG [MAGNESIUM] [CHEM] DAILY - Plan Plan:: Impression: AUTI Progression of Parkinson's 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 DVT/GI prophylaxis
[2017-02-08] MEDS: ROPINIROLE PO SCH (20:03)
[2017-02-08] MEDS ORDERED: ROPINIROLE HCL 2 MG PO SCH (21:00)
[2017-02-09] MEDS: Acetaminophen 325 MG Tab PO PRN (01:13)
[2017-02-09] MEDS ORDERED: Bisacodyl 10 MG Supp RECTAL ONE (04:13)
[2017-02-09] MEDS: Pantoprazole 40 MG Tab.CR PO SCH (06:37)
[2017-02-09] MEDS: ROPINIROLE PO SCH (06:38)
[2017-02-09] MEDS: Sodium Chloride 0.9% 1,000 ML IV SCH ×2 (06:56→20:35)
[2017-02-09] MEDS ORDERED: FIBER PO SCH (07:00)
[2017-02-09] MEDS ORDERED: LACTOSE REDUCED FOOD PO SCH (07:00)
[2017-02-09] MEDS ORDERED: [UNRECOGNIZED DRUG - OTHER] PO SCH (07:00)
[2017-02-09] MEDS ORDERED: Vancomycin 1 GM, Vancomycin 250 MG in Sodium Chloride 0.9% 250 ML IV SCH (08:00)
[2017-02-09] MEDS: Enoxaparin 40 MG/0.4 ML Syringe SUBCUT SCH (10:15)
[2017-02-09] MEDS: Cyclobenzaprine 10 MG Tab PO SCH ×2 (10:15→20:25)
[2017-02-09] MEDS: Carbidopa/Levodopa 25-100 MG Tab PO SCH ×4 (10:15→20:25)
[2017-02-09] MEDS: Mupirocin Oint 22 GM Tube TOP SCH (10:17)
[2017-02-09] MEDS: WATER SCH ×2 (10:25→20:25)
[2017-02-09] MEDS: Levofloxacin/Dextrose 5%-Water 750 MG in Premix Bag 1 BAG IV SCH (13:59)
--- NOTE | 2017-02-09 14:17 | PCM.PN ---
- General Info Date of Service: 02/09/17 Functional Status: Reports: Pain Controlled, Tolerating Diet, Urinating - Review of Systems General: Reports: No Symptoms HEENT: Reports: No Symptoms Pulmonary: Reports: No Symptoms Cardiovascular: Reports: No Symptoms Gastrointestinal: Reports: No Symptoms Genitourinary: Reports: No Symptoms Musculoskeletal: Reports: No Symptoms Skin: Reports: No Symptoms Neurological: Reports: No Symptoms Psychiatric: Reports: Other (he is bored) - Patient Data Vitals - Most Recent: Last Vital Signs Temp 36.7 C 02/09/17 03:18 Pulse 76 02/09/17 09:00 Resp 20 02/09/17 03:18 BP 101/67 02/09/17 09:00 Pulse Ox 99 02/09/17 09:00 Weight - Most Recent: 88.269 kg I&O - Last 24 Hours: Intake & Output 02/08/17 02/09/17 02/09/17 22:59 06:59 14:59 Intake Total 1867 1505 Output Total 900 1900 Balance 967 -395 Lab Results Last 24 Hours: Laboratory Results - last 24 hr 02/09/17 02/09/17 02/09/17 Range/Units 06:27 06:27 06:27 WBC 8.42 (4.23-9.07) K/mm3 RBC 4.70 (4.63-6.08) M/mm3 Hgb 15.2 (13.7-17.5) gm/L Hct 45.1 (40.1-51.0) % MCV 96.0 H (79.0-92.2) fl MCH 32.3 H (25.7-32.2) pg MCHC 33.7 (32.2-35.5) g/dl RDW Std Deviation 43.9 (35.1-43.9) fL Plt Count 226 (163-337) K/mm3 MPV 10.5 (9.4-12.3) fl Neut % (Auto) 58.8 (34.0-67.9) % Lymph % (Auto) 27.7 (21.8-53.1) % [place] % (Auto) 10.0 (5.3-12.2) % Eos % (Auto) 2.7 (0.8-7.0) Baso % (Auto) 0.6 (0.1-1.2) % Neut # (Auto) 4.95 (1.78-5.38) K/mm3 Lymph # (Auto) 2.33 (1.32-3.57) K/mm3 [place] # (Auto) 0.84 H (0.30-0.82) K/mm3 Eos # (Auto) 0.23 (0.04-0.54) K/mm3 Baso # (Auto) 0.05 (0.01-0.08) K/mm3 Sodium 139 (136-145) mEq/L Potassium 4.2 (3.5-5.1) mEq/L Chloride 105 (98-107) mEq/L Carbon Dioxide 25 (21-32) mEq/L Anion Gap 13.2 (5-15) BUN 19 H (7-18) mg/dL Creatinine 1.3 (0.7-1.3) mg/dL Est Cr Clr Drug Dosing 58.03 mL/min Estimated GFR (MDRD) 55 (>60) mL/min BUN/Creatinine Ratio 14.6 (14-18) Glucose 93 (80-115) mg/dL Lactic Acid 1.7 (0.4-2.0) mmol/L Calcium 9.1 (8.5-10.1) mg/dL Magnesium 2.2 (1.8-2.4) mg/dl C-Reactive Protein 0.9 (<1.0) mg/dL Med Orders - Current: Current Medications Acetaminophen (Tylenol) 650 mg PO Q4H PRN PRN Reason: Pain Last Admin: 02/09/17 01:13 Dose: 650 mg Bisacodyl (Dulcolax) [address] [facility] Last Admin: 02/07/17 22:58 Dose: 10 mg Carbidopa/Levodopa (Sinemet 25-100 Mg) [address] [facility] Last Admin: 02/09/17 14:00 Dose: 1 tab Cyclobenzaprine HCl (Flexeril) [address] [facility] Last Admin: 02/09/17 10:15 Dose: 10 mg Enoxaparin Sodium (Lovenox) [address] [facility] Last Admin: 02/09/17 10:15 Dose: 40 mg Levofloxacin/Dextrose 750 mg/ (Premix) 150 mls @ 100 mls/hr IV Q24H [facility] Last Admin: 02/09/17 13:59 Dose: 100 mls/hr Sodium Chloride (Normal Saline) 1,000 mls @ 70 mls/hr IV ASDIRECTED [facility] Last Admin: 02/09/17 06:56 Dose: 70 mls/hr Mupirocin (Bactroban Oint) [address] [facility] Last Admin: 02/09/17 10:17 Dose: 1 applic Pantoprazole Sodium (Protonix) 40 mg PO DAILY@0700 [facility] Last Admin: 02/09/17 06:37 Dose: 40 mg Lidocaine 5% 1 (Ointment) 0 each TOP Q4H PRN PRN Reason: Other Water 30 Ml [address] [facility] Last Admin: 02/09/17 10:25 Dose: 1 each Ropinirole HCl (Ropinirole Hcl) 5 mg PO DAILY@1500 [facility] Last Admin: 02/09/17 14:00 Dose: 5 mg Ropinirole HCl (Ropinirole Hcl) 10 mg PO BID@0700,2100 [facility] Senna/Docusate Sodium (Senna Plus) [address] [facility] Last Admin: 02/09/17 10:15 Dose: 1 tab Sodium Chloride (Saline Flush) 10 ml FLUSH ASDIRECTED PRN PRN Reason: Keep Vein Open Last Admin: 02/07/17 12:39 Dose: 10 ml Triamcinolone Acetonide (Triamcinolone Acetonide 0.5%) 0 gm TOP BID PRN PRN Reason: psoriasis Discontinued Medications Bisacodyl (Dulcolax) 10 mg RECTAL ONETIME ONE Stop: 02/09/17 04:14 Last Admin: 02/09/17 05:16 Dose: 10 mg Carbidopa/Levodopa (Sinemet 25-250 Mg) 1 tab PO BID@0800,2000 [facility] Last Admin: 02/08/17 12:05 Dose: Not Given Carbidopa/Levodopa (Sinemet 10-100 Mg) 2 tab PO ONETIME ONE Stop: 02/07/17 23:57 Last Admin: 02/08/17 00:21 Dose: 2 tab Diphenhydramine HCl (Benadryl) 25 mg IVPUSH ONETIME ONE Stop: 02/07/17 13:50 Last Admin: 02/07/17 13:56 Dose: 25 mg Hydromorphone HCl (Dilaudid) 0.5 mg IVPUSH ONETIME ONE Stop: 02/07/17 16:35 Last Admin: 02/07/17 16:40 Dose: 0.5 mg Levofloxacin/Dextrose 500 mg/ (Premix) 100 mls @ 100 mls/hr IV ONETIME ONE Stop: 02/07/17 16:19 Last Admin: 02/07/17 16:18 Dose: 100 mls/hr Sodium Chloride (Normal Saline) 1,000 mls @ 999 mls/hr IV ASDIRECTED ONE Stop: 02/07/17 21:08 Last Admin: 02/07/17 21:46 Dose: 999 mls/hr Sodium Chloride (Normal Saline) 1,000 mls @ 100 mls/hr IV ONETIME ONE Stop: 02/08/17 09:20 Last Admin: 02/07/17 23:36 Dose: 999 mls/hr Sodium Chloride (Normal Saline) 1,000 mls @ 70 mls/hr IV ASDIRECTED ONE Stop: 02/08/17 13:38 Last Admin: 02/08/17 07:35 Dose: Not Given Sodium Chloride (Normal Saline) 1,000 mls @ 100 mls/hr IV ASDIRECTED [facility] Stop: 02/08/17 06:41 Last Admin: 02/08/17 00:50 Dose: 100 mls/hr Magnesium Sulfate 2 gm/ Premix 50 mls @ 25 mls/hr IV ONETIME ONE Stop: 02/08/17 13:40 Last Admin: 02/08/17 14:47 Dose: 25 mls/hr Vancomycin HCl 1 gm/ Sodium (Chloride) 250 mls @ 250 mls/hr IV ONETIME ONE Stop: 02/08/17 19:21 Last Admin: 02/08/17 19:58 Dose: 250 mls/hr Vancomycin HCl 1 gm/ Sodium (Chloride) 250 mls @ 250 mls/hr IV Q12H [facility] Vancomycin HCl 1 gm/Vancomycin HCl 250 mg/ Sodium Chloride 250 mls @ 166 mls/ hr IV Q12H [facility] Last Admin: 02/09/17 08:01 Dose: 166 mls/hr Magnesium Hydroxide (Milk Of Magnesia) 30 ml PO ONETIME ONE Stop: 02/08/17 12:08 Last Admin: 02/08/17 13:04 Dose: 30 ml Ropinirole 4mg Tab * (*Patient's Own) 2 each PO BID@0700,2100 [facility] Last Admin: 02/08/17 07:28 Dose: Not Given Ropinirole 2 Mg Tab (Patient's Own) [address] [facility] Last Admin: 02/08/17 00:22 Dose: 1 each Ropinirole 2 Mg Tab (Patient's Own) 1 each PO BID@0700,2100 [facility] Last Admin: 02/08/17 07:02 Dose: 1 each Non-Formulary Medication (Ropinirole Hcl) [address] [facility] Non-Formulary Medication (Lactose-Reduced Food/Fiber [Jevity 1.5 Garth Liquid]) [address] [facility] Ropinirole 5 Mg Tab (Patient's Own) 0 each PO DAILY@1500 [facility] Last Admin: 02/08/17 14:47 Dose: 1 each Ropinirole 10 Mg Tab (Patient's Own) 0 each PO BID@0700,2100 [facility] Last Admin: 02/09/17 06:38 Dose: 10 each Ropinirole HCl (Requip) 5 mg PO DAILY@1500 [facility] Ropinirole HCl (Requip) [address] [facility] Last Admin: 02/08/17 07:28 Dose: Not Given Vancomycin HCl (Pharmacy To Dose - Vancomycin) 0 dose .XX ASDIRECTED PRN PRN Reason: RX TO DOSE VANCOMYCIN - Exam Quality Assessment: Urine Catheter, DVT Prophylaxis General: Alert, Oriented, No Acute Distress HEENT: Pupils Equal, Pupils Reactive, EOMI Neck: Supple, Trachea Midline, No JVD Lungs: Normal Respiratory Effort Cardiovascular: Regular Rate, Regular Rhythm GI/Abdominal Exam: Normal Bowel Sounds, Soft, Non-Tender, No Organomegaly, No Distention (Male) Exam: Deferred Back Exam: Normal Inspection Extremities: Normal Inspection Skin: Warm Neurological: No New Focal Deficit Psy/Mental Status: Alert - Problem List & Annotations (1) Rubin catheter in place SNOMED Code(s): 993088111 Code(s): Z92.89 - PERSONAL HISTORY OF OTHER MEDICAL TREATMENT Status: Acute Current Visit: Yes (2) Supranuclear palsy SNOMED Code(s): 12426444 Code(s): G23.1 - PROGRESSIVE SUPRANUCLEAR OPHTHALMOPLEGIA Status: Acute Current Visit: Yes (3) Hypertension SNOMED Code(s): 83013508 Code(s): I10 - ESSENTIAL (PRIMARY) HYPERTENSION Status: Acute Current Visit: Yes (4) Hyperlipidemia SNOMED Code(s): 42147002 Code(s): E78.5 - HYPERLIPIDEMIA, UNSPECIFIED Status: Acute Current Visit : Yes (5) CAD (coronary artery disease) SNOMED Code(s): 14336265 Code(s): I25.10 - ATHSCL HEART DISEASE OF [place] CORONARY ARTERY W/O ANG PCTRS Status: Acute Current Visit: Yes (6) Parkinson disease SNOMED Code(s): 24439463 Code(s): G20 - PARKINSON'S DISEASE Status: Acute Current Visit: Yes (7) Tardive dyskinesia SNOMED Code(s): 558350892 Code(s): G24.01 - DRUG INDUCED SUBACUTE DYSKINESIA Status: Acute Current Visit: Yes (8) Urinary tract infection SNOMED Code(s): 13073635 Code(s): N39.0 - URINARY TRACT INFECTION, SITE NOT SPECIFIED Status: Acute Priority: High Current Visit: Yes Qualifiers: Urinary tract infection type: acute cystitis Hematuria presence: with hematuria Qualified Code(s): N30.01 - Acute cystitis with hematuria - Problem List Review Problem List Initiated/Reviewed/Updated: Yes - My Orders Last 24 Hours: My Active Orders 02/08/17 14:00 Levofloxacin/Dextrose 5%-Water [Levaquin in D5W 750 MG/150 ML] 750 mg Premix Bag 1 bag IV Q24H 02/09/17 15:00 rOPINIRole HCl [Ropinirole HCl] 5 mg PO DAILY@1500 02/09/17 21:00 rOPINIRole HCl [Ropinirole HCl] 10 mg PO BID@0700,2100 02/10/17 05:00 BASIC METABOLIC PANEL,BMP [CHEM] DAILY CBC WITH AUTO DIFF [HEME] DAILY CRP [C-REACTIVE PROTEIN] [CHEM] DAILY LACTIC ACID [CHEM] DAILY MG [MAGNESIUM] [CHEM] DAILY 02/11/17 05:00 BASIC METABOLIC PANEL,BMP [CHEM] DAILY CBC WITH AUTO DIFF [HEME] DAILY CRP [C-REACTIVE PROTEIN] [CHEM] DAILY MG [MAGNESIUM] [CHEM] DAILY 02/12/17 05:00 BASIC METABOLIC PANEL,BMP [CHEM] DAILY CBC WITH AUTO DIFF [HEME] DAILY CRP [C-REACTIVE PROTEIN] [CHEM] DAILY MG [MAGNESIUM] [CHEM] DAILY 02/13/17 05:00 BASIC METABOLIC PANEL,BMP [CHEM] DAILY CBC WITH AUTO DIFF [HEME] DAILY CRP [C-REACTIVE PROTEIN] [CHEM] DAILY MG [MAGNESIUM] [CHEM] DAILY - Plan Plan:: Impression: AUTI Progression of Parkinson's 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 DVT/GI prophylaxis DC expected at the end of week, awaiting sensitivity on multiple organisms in UA.
[2017-02-10] MEDS: Pantoprazole 40 MG Tab.CR PO SCH (06:49)
--- NOTE | 2017-02-10 09:57 | PCM.PN ---
<Estrella Garcia M - Last Filed: 02/10/17 12:04> - General Info Date of Service: 02/10/17 Admission Dx/Problem (Free Text): Admission Diagnosis/Problem Admission Diagnosis/Problem UTI, Urinary tract infectious disease Patient doing better. He is sitting up in chair working on his Ipad this morning when seen with team. He denies c/o pain. He is working with PT/OT. VSS Labs improved Functional Status: Reports: Pain Controlled - Review of Systems General: Reports: Weakness Pulmonary: Reports: No Symptoms Cardiovascular: Reports: No Symptoms Gastrointestinal: Denies: Abdominal Pain Genitourinary: Reports: Other (marshall cath) - Patient Data Vitals - Most Recent: Last Vital Signs Temp 98.1 F 02/10/17 08:25 Pulse 72 02/10/17 08:25 Resp 16 02/10/17 08:25 BP 106/73 02/10/17 08:25 Pulse Ox 97 02/10/17 08:25 Weight - Most Recent: 87.407 kg I&O - Last 24 Hours: Intake & Output 02/09/17 02/10/17 02/10/17 22:59 06:59 14:59 Intake Total 1927 994 Output Total 1700 925 Balance 227 69 Lab Results Last 24 Hours: Laboratory Results - last 24 hr 02/10/17 02/10/17 02/10/17 Range/Units 06:09 06:09 06:09 WBC 5.62 (4.23-9.07) K/mm3 RBC 4.44 L (4.63-6.08) M/mm3 Hgb 14.5 (13.7-17.5) gm/L Hct 42.2 (40.1-51.0) % MCV 95.0 H (79.0-92.2) fl MCH 32.7 H (25.7-32.2) pg MCHC 34.4 (32.2-35.5) g/dl RDW Std Deviation 43.4 (35.1-43.9) fL Plt Count 178 (163-337) K/mm3 MPV 10.3 (9.4-12.3) fl Neut % (Auto) 62.0 (34.0-67.9) % Lymph % (Auto) 22.2 (21.8-53.1) % [place] % (Auto) 11.7 (5.3-12.2) % Eos % (Auto) 3.4 (0.8-7.0) Baso % (Auto) 0.5 (0.1-1.2) % Neut # (Auto) 3.48 (1.78-5.38) K/mm3 Lymph # (Auto) 1.25 L (1.32-3.57) K/mm3 [place] # (Auto) 0.66 (0.30-0.82) K/mm3 Eos # (Auto) 0.19 (0.04-0.54) K/mm3 Baso # (Auto) 0.03 (0.01-0.08) K/mm3 Sodium 140 (136-145) mEq/L Potassium 3.9 (3.5-5.1) mEq/L Chloride 106 (98-107) mEq/L Carbon Dioxide 26 (21-32) mEq/L Anion Gap 11.9 (5-15) BUN 17 (7-18) mg/dL Creatinine 1.0 (0.7-1.3) mg/dL Est Cr Clr Drug Dosing 75.55 mL/min Estimated GFR (MDRD) > 60 (>60) mL/min BUN/Creatinine Ratio 17.0 (14-18) Glucose 94 (80-115) mg/dL Lactic Acid 0.7 (0.4-2.0) mmol/L Calcium 8.7 (8.5-10.1) mg/dL Magnesium 1.8 (1.8-2.4) mg/dl C-Reactive Protein 0.4 (<1.0) mg/dL Med Orders - Current: Current Medications Acetaminophen (Tylenol) 650 mg PO Q4H PRN PRN Reason: Pain Last Admin: 02/09/17 01:13 Dose: 650 mg Bisacodyl (Dulcolax) 10 mg RECTAL Q3D [facility] Last Admin: 02/07/17 22:58 Dose: 10 mg Carbidopa/Levodopa (Sinemet 25-100 Mg) 1 tab PO QID [facility] Last Admin: 02/09/17 20:25 Dose: 1 tab Cyclobenzaprine HCl (Flexeril) 10 mg PO BID [facility] Last Admin: 02/09/17 20:25 Dose: 10 mg Enoxaparin Sodium (Lovenox) 40 mg SUBCUT DAILY [facility] Last Admin: 02/09/17 10:15 Dose: 40 mg Levofloxacin/Dextrose 750 mg/ (Premix) 150 mls @ 100 mls/hr IV Q24H [facility] Last Admin: 02/09/17 13:59 Dose: 100 mls/hr Sodium Chloride (Normal Saline) 1,000 mls @ 70 mls/hr IV ASDIRECTED [facility] Last Admin: 02/09/17 20:35 Dose: 70 mls/hr Mupirocin (Bactroban Oint) 0 gm TOP DAILY [facility] Last Admin: 02/09/17 10:17 Dose: 1 applic Pantoprazole Sodium (Protonix) 40 mg PO DAILY@0700 [facility] Last Admin: 02/10/17 06:49 Dose: 40 mg Lidocaine 5% 1 (Ointment) 0 each TOP Q4H PRN PRN Reason: Other Water 30 Ml 0 each .XX BID [facility] Last Admin: 02/09/17 20:25 Dose: 1 each Ropinirole HCl (Ropinirole Hcl) 5 mg PO DAILY@1500 [facility] Last Admin: 02/09/17 14:00 Dose: 5 mg Ropinirole HCl (Ropinirole Hcl) 10 mg PO BID@0700,2100 [facility] Last Admin: 02/10/17 06:49 Dose: 10 mg Senna/Docusate Sodium (Senna Plus) 1 tab PO BID [facility] Last Admin: 02/09/17 20:25 Dose: 1 tab Sodium Chloride (Saline Flush) 10 ml FLUSH ASDIRECTED PRN PRN Reason: Keep Vein Open Last Admin: 02/07/17 12:39 Dose: 10 ml Triamcinolone Acetonide (Triamcinolone Acetonide 0.5%) 0 gm TOP BID PRN PRN Reason: psoriasis Discontinued Medications Bisacodyl (Dulcolax) 10 mg RECTAL ONETIME ONE Stop: 02/09/17 04:14 Last Admin: 02/09/17 05:16 Dose: 10 mg Carbidopa/Levodopa (Sinemet 25-250 Mg) 1 tab PO BID@0800,2000 [facility] Last Admin: 02/08/17 12:05 Dose: Not Given Carbidopa/Levodopa (Sinemet 10-100 Mg) 2 tab PO ONETIME ONE Stop: 02/07/17 23:57 Last Admin: 02/08/17 00:21 Dose: 2 tab Diphenhydramine HCl (Benadryl) 25 mg IVPUSH ONETIME ONE Stop: 02/07/17 13:50 Last Admin: 02/07/17 13:56 Dose: 25 mg Hydromorphone HCl (Dilaudid) 0.5 mg IVPUSH ONETIME ONE Stop: 02/07/17 16:35 Last Admin: 02/07/17 16:40 Dose: 0.5 mg Levofloxacin/Dextrose 500 mg/ (Premix) 100 mls @ 100 mls/hr IV ONETIME ONE Stop: 02/07/17 16:19 Last Admin: 02/07/17 16:18 Dose: 100 mls/hr Sodium Chloride (Normal Saline) 1,000 mls @ 999 mls/hr IV ASDIRECTED ONE Stop: 02/07/17 21:08 Last Admin: 02/07/17 21:46 Dose: 999 mls/hr Sodium Chloride (Normal Saline) 1,000 mls @ 100 mls/hr IV ONETIME ONE Stop: 02/08/17 09:20 Last Admin: 02/07/17 23:36 Dose: 999 mls/hr Sodium Chloride (Normal Saline) 1,000 mls @ 70 mls/hr IV ASDIRECTED ONE Stop: 02/08/17 13:38 Last Admin: 02/08/17 07:35 Dose: Not Given Sodium Chloride (Normal Saline) 1,000 mls @ 100 mls/hr IV ASDIRECTED [facility] Stop: 02/08/17 06:41 Last Admin: 02/08/17 00:50 Dose: 100 mls/hr Magnesium Sulfate 2 gm/ Premix 50 mls @ 25 mls/hr IV ONETIME ONE Stop: 02/08/17 13:40 Last Admin: 02/08/17 14:47 Dose: 25 mls/hr Vancomycin HCl 1 gm/ Sodium (Chloride) 250 mls @ 250 mls/hr IV ONETIME ONE Stop: 02/08/17 19:21 Last Admin: 02/08/17 19:58 Dose: 250 mls/hr Vancomycin HCl 1 gm/ Sodium (Chloride) 250 mls @ 250 mls/hr IV Q12H [facility] Vancomycin HCl 1 gm/Vancomycin HCl 250 mg/ Sodium Chloride 250 mls @ 166 mls/ hr IV Q12H [facility] Last Admin: 02/09/17 08:01 Dose: 166 mls/hr Magnesium Hydroxide (Milk Of Magnesia) 30 ml PO ONETIME ONE Stop: 02/08/17 12:08 Last Admin: 02/08/17 13:04 Dose: 30 ml Ropinirole 4mg Tab * (*Patient's Own) 2 each PO BID@0700,2100 [facility] Last Admin: 02/08/17 07:28 Dose: Not Given Ropinirole 2 Mg Tab (Patient's Own) 1 each PO BID [facility] Last Admin: 02/08/17 00:22 Dose: 1 each Ropinirole 2 Mg Tab (Patient's Own) 1 each PO BID@0700,2100 [facility] Last Admin: 02/08/17 07:02 Dose: 1 each Non-Formulary Medication (Ropinirole Hcl) 2 mg PO BID [facility] Non-Formulary Medication (Lactose-Reduced Food/Fiber [Jevity 1.5 Garth Liquid]) 100 ml PO BIDMEALS [facility] Ropinirole 5 Mg Tab (Patient's Own) 0 each PO DAILY@1500 [facility] Last Admin: 02/08/17 14:47 Dose: 1 each Ropinirole 10 Mg Tab (Patient's Own) 0 each PO BID@0700,2100 [facility] Last Admin: 02/09/17 06:38 Dose: 10 each Ropinirole HCl (Requip) 5 mg PO DAILY@1500 [facility] Ropinirole HCl (Requip) 8 mg PO BID [facility] Last Admin: 02/08/17 07:28 Dose: Not Given Vancomycin HCl (Pharmacy To Dose - Vancomycin) 0 dose .XX ASDIRECTED PRN PRN Reason: RX TO DOSE VANCOMYCIN - Exam Quality Assessment: DVT Prophylaxis General: Alert, Cooperative, No Acute Distress HEENT: Pupils Equal, Mucous Membr. Moist/[place] Neck: Supple Lungs: Clear to Auscultation, Normal Respiratory Effort, Decreased Breath Sounds (bases) Cardiovascular: Regular Rate, Regular Rhythm GI/Abdominal Exam: Normal Bowel Sounds, Soft, No Organomegaly (Male) Exam: Deferred Extremities: No Pedal Edema Psy/Mental Status: Alert, Normal Affect, Normal Mood - Problem List & Annotations (1) Urinary tract infection SNOMED Code(s): 64220091 Code(s): N39.0 - URINARY TRACT INFECTION, SITE NOT SPECIFIED Status: Acute Priority: High Current Visit: Yes Qualifiers: Urinary tract infection type: acute cystitis Hematuria presence: with hematuria Qualified Code(s): N30.01 - Acute cystitis with hematuria (2) Dehydration SNOMED Code(s): 77688207 Code(s): E86.0 - DEHYDRATION Status: Resolved Priority: High Current Visit: Yes (3) Renal insufficiency SNOMED Code(s): 893837179 Code(s): N28.9 - DISORDER OF KIDNEY AND URETER, UNSPECIFIED Status: Chronic Priority: Medium Current Visit: Yes (4) Tardive dyskinesia SNOMED Code(s): 514943435 Code(s): G24.01 - DRUG INDUCED SUBACUTE DYSKINESIA Status: Resolved Current Visit: Yes (5) Urinary retention SNOMED Code(s): 225522988 Code(s): R33.9 - RETENTION OF URINE, UNSPECIFIED Status: Chronic Priority : Medium Current Visit: Yes Annotation/Comment:: recurrent and US shows bladder outlet obstruction (6) Parkinson disease SNOMED Code(s): 42729145 Code(s): G20 - PARKINSON'S DISEASE Status: Chronic Priority: Medium Current Visit: Yes (7) Marshall catheter in place SNOMED Code(s): 344289002 Code(s): Z92.89 - PERSONAL HISTORY OF OTHER MEDICAL TREATMENT Status: Chronic Priority: Medium Current Visit: Yes (8) Progressive supranuclear palsy SNOMED Code(s): 61533044 Code(s): G23.1 - PROGRESSIVE SUPRANUCLEAR OPHTHALMOPLEGIA Status: Chronic Priority: Medium Current Visit: No - Problem List Review Problem List Initiated/Reviewed/Updated: Yes - Plan Plan:: 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 -First 2 organisms sensitive to levaquin -next 2 organisms sensitivity pending -Good response thus far to IV levaquin Progression of Parkinson's disease - [employer] eval Progression of Supranuclear Palsy - [employer]GER eval Dystonic reaction with recent medication adjustment -Decreased dose of sinimet to QID-- tardive dyskinesia reaction improved to resolved Chronic--cont all home meds HTN--stable HLD CAD Depression Neurogenic Bladder--cont marshall cath; plan to change prior to DC as tx MDR UTI, pseudomonas Plan: IVF--will DC as taking adequate PO now ATB as above UR/BLD Cx CM/PT/OT Adjust diet as needed after swallow eval/[employer]GER eval DVT/GI prophylaxis CM/SW for assist with DC planning DC expected at the end of week, awaiting sensitivity on multiple organisms in UA. Code status DNR/DNI <Rani Martínez - Last Filed: 02/10/17 14:28> - Patient Data Vitals - Most Recent: Last Vital Signs Temp 36.7 C 02/10/17 08:25 Pulse 72 02/10/17 08:25 Resp 16 02/10/17 08:25 BP 106/73 02/10/17 08:25 Pulse Ox 97 02/10/17 08:25 I&O - Last 24 Hours: Intake & Output 02/09/17 02/10/17 02/10/17 22:59 06:59 14:59 Intake Total 1927 994 420 Output Total 1700 925 Balance 227 69 420 Lab Results Last 24 Hours: Laboratory Results - last 24 hr 02/10/17 02/10/17 02/10/17 Range/Units 06:09 06:09 06:09 WBC 5.62 (4.23-9.07) K/mm3 RBC 4.44 L (4.63-6.08) M/mm3 Hgb 14.5 (13.7-17.5) gm/L Hct 42.2 (40.1-51.0) % MCV 95.0 H (79.0-92.2) fl MCH 32.7 H (25.7-32.2) pg MCHC 34.4 (32.2-35.5) g/dl RDW Std Deviation 43.4 (35.1-43.9) fL Plt Count 178 (163-337) K/mm3 MPV 10.3 (9.4-12.3) fl Neut % (Auto) 62.0 (34.0-67.9) % Lymph % (Auto) 22.2 (21.8-53.1) % [place] % (Auto) 11.7 (5.3-12.2) % Eos % (Auto) 3.4 (0.8-7.0) Baso % (Auto) 0.5 (0.1-1.2) % Neut # (Auto) 3.48 (1.78-5.38) K/mm3 Lymph # (Auto) 1.25 L (1.32-3.57) K/mm3 [place] # (Auto) 0.66 (0.30-0.82) K/mm3 Eos # (Auto) 0.19 (0.04-0.54) K/mm3 Baso # (Auto) 0.03 (0.01-0.08) K/mm3 Sodium 140 (136-145) mEq/L Potassium 3.9 (3.5-5.1) mEq/L Chloride 106 (98-107) mEq/L Carbon Dioxide 26 (21-32) mEq/L Anion Gap 11.9 (5-15) BUN 17 (7-18) mg/dL Creatinine 1.0 (0.7-1.3) mg/dL Est Cr Clr Drug Dosing 75.55 mL/min Estimated GFR (MDRD) > 60 (>60) mL/min BUN/Creatinine Ratio 17.0 (14-18) Glucose 94 (80-115) mg/dL Lactic Acid 0.7 (0.4-2.0) mmol/L Calcium 8.7 (8.5-10.1) mg/dL Magnesium 1.8 (1.8-2.4) mg/dl C-Reactive Protein 0.4 (<1.0) mg/dL Med Orders - Current: Current Medications Acetaminophen (Tylenol) 650 mg PO Q4H PRN PRN Reason: Pain Last Admin: 02/09/17 01:13 Dose: 650 mg Bisacodyl (Dulcolax) 10 mg RECTAL Q3D [facility] Last Admin: 02/07/17 22:58 Dose: 10 mg Carbidopa/Levodopa (Sinemet 25-100 Mg) 1 tab PO QID [facility] Last Admin: 02/10/17 12:24 Dose: 1 tab Cyclobenzaprine HCl (Flexeril) 10 mg PO BID [facility] Last Admin: 02/10/17 10:06 Dose: 10 mg Enoxaparin Sodium (Lovenox) 40 mg SUBCUT DAILY [facility] Last Admin: 02/10/17 10:06 Dose: 40 mg Levofloxacin/Dextrose 750 mg/ (Premix) 150 mls @ 100 mls/hr IV Q24H [facility] Last Admin: 02/10/17 14:23 Dose: 100 mls/hr Mupirocin (Bactroban Oint) 0 gm TOP DAILY [facility] Last Admin: 02/10/17 10:06 Dose: 1 applic Nitrofurantoin Macrocrystals (Macrobid) 100 mg PO BID [facility] Stop: 02/19/17 21:01 Last Admin: 02/10/17 12:24 Dose: 100 mg Pantoprazole Sodium (Protonix) 40 mg PO DAILY@0700 [facility] Last Admin: 02/10/17 06:49 Dose: 40 mg Lidocaine 5% 1 (Ointment) 0 each TOP Q4H PRN PRN Reason: Other Water 30 Ml 0 each .XX BID [facility] Last Admin: 02/10/17 10:11 Dose: 1 each Ropinirole HCl (Ropinirole Hcl) 5 mg PO DAILY@1500 [facility] Last Admin: 02/10/17 14:23 Dose: 5 mg Ropinirole HCl (Ropinirole Hcl) 10 mg PO BID@0700,2100 [facility] Last Admin: 02/10/17 06:49 Dose: 10 mg Saccharomyces Boulardii (Florastor) 250 mg PO BID [facility] Last Admin: 02/10/17 12:24 Dose: 250 mg Senna/Docusate Sodium (Senna Plus) 1 tab PO BID [facility] Last Admin: 02/10/17 10:06 Dose: 1 tab Sodium Chloride (Saline Flush) 10 ml FLUSH ASDIRECTED PRN PRN Reason: Keep Vein Open Last Admin: 02/07/17 12:39 Dose: 10 ml Triamcinolone Acetonide (Triamcinolone Acetonide 0.5%) 0 gm TOP BID PRN PRN Reason: psoriasis Discontinued Medications Bisacodyl (Dulcolax) 10 mg RECTAL ONETIME ONE Stop: 02/09/17 04:14 Last Admin: 02/09/17 05:16 Dose: 10 mg Carbidopa/Levodopa (Sinemet 25-250 Mg) 1 tab PO BID@0800,2000 [facility] Last Admin: 02/08/17 12:05 Dose: Not Given Carbidopa/Levodopa (Sinemet 10-100 Mg) 2 tab PO ONETIME ONE Stop: 02/07/17 23:57 Last Admin: 02/08/17 00:21 Dose: 2 tab Diphenhydramine HCl (Benadryl) 25 mg IVPUSH ONETIME ONE Stop: 02/07/17 13:50 Last Admin: 02/07/17 13:56 Dose: 25 mg Hydromorphone HCl (Dilaudid) 0.5 mg IVPUSH ONETIME ONE Stop: 02/07/17 16:35 Last Admin: 02/07/17 16:40 Dose: 0.5 mg Levofloxacin/Dextrose 500 mg/ (Premix) 100 mls @ 100 mls/hr IV ONETIME ONE Stop: 02/07/17 16:19 Last Admin: 02/07/17 16:18 Dose: 100 mls/hr Sodium Chloride (Normal Saline) 1,000 mls @ 999 mls/hr IV ASDIRECTED ONE Stop: 02/07/17 21:08 Last Admin: 02/07/17 21:46 Dose: 999 mls/hr Sodium Chloride (Normal Saline) 1,000 mls @ 100 mls/hr IV ONETIME ONE Stop: 02/08/17 09:20 Last Admin: 02/07/17 23:36 Dose: 999 mls/hr Sodium Chloride (Normal Saline) 1,000 mls @ 70 mls/hr IV ASDIRECTED ONE Stop: 02/08/17 13:38 Last Admin: 02/08/17 07:35 Dose: Not Given Sodium Chloride (Normal Saline) 1,000 mls @ 100 mls/hr IV ASDIRECTED [facility] Stop: 02/08/17 06:41 Last Admin: 02/08/17 00:50 Dose: 100 mls/hr Sodium Chloride (Normal Saline) 1,000 mls @ 70 mls/hr IV ASDIRECTED [facility] Last Admin: 02/10/17 11:06 Dose: 70 mls/hr Magnesium Sulfate 2 gm/ Premix 50 mls @ 25 mls/hr IV ONETIME ONE Stop: 02/08/17 13:40 Last Admin: 02/08/17 14:47 Dose: 25 mls/hr Vancomycin HCl 1 gm/ Sodium (Chloride) 250 mls @ 250 mls/hr IV ONETIME ONE Stop: 02/08/17 19:21 Last Admin: 02/08/17 19:58 Dose: 250 mls/hr Vancomycin HCl 1 gm/ Sodium (Chloride) 250 mls @ 250 mls/hr IV Q12H [facility] Vancomycin HCl 1 gm/Vancomycin HCl 250 mg/ Sodium Chloride 250 mls @ 166 mls/ hr IV Q12H [facility] Last Admin: 02/09/17 08:01 Dose: 166 mls/hr Magnesium Hydroxide (Milk Of Magnesia) 30 ml PO ONETIME ONE Stop: 02/08/17 12:08 Last Admin: 02/08/17 13:04 Dose: 30 ml Ropinirole 4mg Tab * (*Patient's Own) 2 each PO BID@0700,2100 [facility] Last Admin: 02/08/17 07:28 Dose: Not Given Ropinirole 2 Mg Tab (Patient's Own) 1 each PO BID [facility] Last Admin: 02/08/17 00:22 Dose: 1 each Ropinirole 2 Mg Tab (Patient's Own) 1 each PO BID@0700,2100 [facility] Last Admin: 02/08/17 07:02 Dose: 1 each Non-Formulary Medication (Ropinirole Hcl) 2 mg PO BID [facility] Non-Formulary Medication (Lactose-Reduced Food/Fiber [Jevity 1.5 Garth Liquid]) 100 ml PO BIDMEALS [facility] Ropinirole 5 Mg Tab (Patient's Own) 0 each PO DAILY@1500 [facility] Last Admin: 02/08/17 14:47 Dose: 1 each Ropinirole 10 Mg Tab (Patient's Own) 0 each PO BID@0700,2100 [facility] Last Admin: 02/09/17 06:38 Dose: 10 each Ropinirole HCl (Requip) 5 mg PO DAILY@1500 [facility] Ropinirole HCl (Requip) 8 mg PO BID [facility] Last Admin: 02/08/17 07:28 Dose: Not Given Vancomycin HCl (Pharmacy To Dose - Vancomycin) 0 dose .XX ASDIRECTED PRN PRN Reason: RX TO DOSE VANCOMYCIN - Problem List & Annotations (1) Marshall catheter in place SNOMED Code(s): 768464203 Code(s): Z92.89 - PERSONAL HISTORY OF OTHER MEDICAL TREATMENT Status: Chronic Priority: Medium Current Visit: Yes (2) Supranuclear palsy SNOMED Code(s): 03344695 Code(s): G23.1 - PROGRESSIVE SUPRANUCLEAR OPHTHALMOPLEGIA Status: Acute Current Visit: Yes (3) Hypertension SNOMED Code(s): 63572666 Code(s): I10 - ESSENTIAL (PRIMARY) HYPERTENSION Status: Acute Current Visit: Yes (4) Hyperlipidemia SNOMED Code(s): 49361454 Code(s): E78.5 - HYPERLIPIDEMIA, UNSPECIFIED Status: Acute Current Visit : Yes (5) CAD (coronary artery disease) SNOMED Code(s): 64019910 Code(s): I25.10 - ATHSCL HEART DISEASE OF [place] CORONARY ARTERY W/O ANG PCTRS Status: Acute Current Visit: Yes (6) Parkinson disease SNOMED Code(s): 85405264 Code(s): G20 - PARKINSON'S DISEASE Status: Chronic Priority: Medium Current Visit: Yes (7) Tardive dyskinesia SNOMED Code(s): 840764644 Code(s): G24.01 - DRUG INDUCED SUBACUTE DYSKINESIA Status: Resolved Current Visit: Yes (8) Urinary tract infection SNOMED Code(s): 06914749 Code(s): N39.0 - URINARY TRACT INFECTION, SITE NOT SPECIFIED Status: Acute Priority: High Current Visit: Yes Qualifiers: Urinary tract infection type: acute cystitis Hematuria presence: with hematuria Qualified Code(s): N30.01 - Acute cystitis with hematuria - My Orders Last 24 Hours: My Active Orders 02/09/17 15:00 rOPINIRole HCl [Ropinirole HCl] 5 mg PO DAILY@1500 02/09/17 21:00 rOPINIRole HCl [Ropinirole HCl] 10 mg PO BID@0700,2100 02/11/17 05:00 BASIC METABOLIC PANEL,BMP [CHEM] DAILY CBC WITH AUTO DIFF [HEME] DAILY CRP [C-REACTIVE PROTEIN] [CHEM] DAILY MG [MAGNESIUM] [CHEM] DAILY 02/12/17 05:00 BASIC METABOLIC PANEL,BMP [CHEM] DAILY CBC WITH AUTO DIFF [HEME] DAILY CRP [C-REACTIVE PROTEIN] [CHEM] DAILY MG [MAGNESIUM] [CHEM] DAILY 02/13/17 05:00 BASIC METABOLIC PANEL,BMP [CHEM] DAILY CBC WITH AUTO DIFF [HEME] DAILY CRP [C-REACTIVE PROTEIN] [CHEM] DAILY MG [MAGNESIUM] [CHEM] DAILY - Plan Plan:: Await sensitivity for remaining organisms.
[2017-02-10] MEDS: Enoxaparin 40 MG/0.4 ML Syringe SUBCUT SCH (10:06)
[2017-02-10] MEDS: Mupirocin Oint 22 GM Tube TOP SCH (10:06)
[2017-02-10] MEDS: Cyclobenzaprine 10 MG Tab PO SCH ×2 (10:06→20:11)
[2017-02-10] MEDS: Carbidopa/Levodopa 25-100 MG Tab PO SCH ×4 (10:06→20:11)
[2017-02-10] MEDS: WATER SCH ×2 (10:11→21:00)
[2017-02-10] MEDS: Sodium Chloride 0.9% 1,000 ML IV SCH (11:06)
[2017-02-10] MEDS: Saccharomyces Boulardii (Probiotic) 250 MG Cap PO SCH ×2 (12:24→20:12)
[2017-02-10] MEDS: Nitrofurantoin Monohydrate/Macrocrystalline 100 MG Cap PO SCH ×2 (12:24→20:11)
[2017-02-10] MEDS: Levofloxacin/Dextrose 5%-Water 750 MG in Premix Bag 1 BAG IV SCH (14:23)
--- NOTE | 2017-02-10 14:44 | PCM.DCSUM1 ---
<Estrella Garcia - Last Filed: 02/10/17 14:44> Discharge Summary - Hospital Course Free Text/Narrative:: 71 year old male with PMH Parkinson's, and Supranuclear Palsy has had a progression of his neurologic symptoms. He complains of a headache and has been having dystonic reactions. His PCP has recently been adjusting his medication. The patient has a AUTI, and will be admitted for treatment. He has a PEG tube that was placed approximately June 2016 and is currently on Jevity as well as free water. He aslo continues to eat by mouth nectar thick liquids and mechanical soft diet. Hospitalist service is consulted for admission for AUTI He is treated with IV levaquin pending C&S which was positive for citerobacter, staph aureus, pseudomonas and enterococcus; multidrug resistance was present however first 3 organisms sensitive to levaquin, enterococcus sensitive to macrobid. He was started on PO macrobid. He had good clinical response. Labs improved. He worked with PT/OT. Rec'd 4 days of IV abx. He is discharged back to [place] with PT/OT/ST to cont to eval and tx there. Marshall cath will be changed prior to dc back to [place]. He is to f/up with PCP within 5-7 days of discharge. - Discharge Data Discharge Date: 02/11/17 (admit date 02/07/17) Discharge Disposition: DC/Tfer to SNF 03 Condition: Good - Discharge Diagnosis/Problem(s) (1) Urinary tract infection SNOMED Code(s): 14154472 ICD Code: N39.0 - URINARY TRACT INFECTION, SITE NOT SPECIFIED Status: Acute Priority: High Current Visit: Yes Qualifiers: Urinary tract infection type: acute cystitis Hematuria presence: with hematuria Qualified Code(s): N30.01 - Acute cystitis with hematuria (2) Dehydration SNOMED Code(s): 07948700 ICD Code: E86.0 - DEHYDRATION Status: Resolved Priority: High Current Visit: Yes (3) Renal insufficiency SNOMED Code(s): 060094252 ICD Code: N28.9 - DISORDER OF KIDNEY AND URETER, UNSPECIFIED Status: Chronic Priority: Medium Current Visit: Yes (4) Tardive dyskinesia SNOMED Code(s): 979292441 ICD Code: G24.01 - DRUG INDUCED SUBACUTE DYSKINESIA Status: Resolved Current Visit: Yes (5) Urinary retention SNOMED Code(s): 357510941 ICD Code: R33.9 - RETENTION OF URINE, UNSPECIFIED Status: Chronic Priority: Medium Current Visit: Yes Problem Details: recurrent and US shows bladder outlet obstruction (6) Parkinson disease SNOMED Code(s): 89165732 ICD Code: G20 - PARKINSON'S DISEASE Status: Chronic Priority: Medium Current Visit: Yes (7) Marshall catheter in place SNOMED Code(s): 499845882 ICD Code: Z92.89 - PERSONAL HISTORY OF OTHER MEDICAL TREATMENT Status: Chronic Priority: Medium Current Visit: Yes (8) Progressive supranuclear palsy SNOMED Code(s): 94857731 ICD Code: G23.1 - PROGRESSIVE SUPRANUCLEAR OPHTHALMOPLEGIA Status: Chronic Priority: Medium Current Visit: No - Patient Summary/Data Operative Procedure(s) Performed: None Complications: None Consults: Consultations 02/07/17 20:12 Consult to Case Management [CONS] Routine Consult to Occupational Therapy [OT Evaluation and Treatment] [CONS] Routine Consult to Physical Therapy [PT Evaluation and Treatment] [CONS] Routine 02/08/17 08:08 Consult to Speech Language Pathology [[employer]IOR SOFTWARE ENGINEER JAVA Evaluation and Treatment] [CONS] Routine Labs Pending at D/C: None Recommended Follow-up Testing/Procedures: Follow up with PCP within 5-7 days of discharge Planned Operative Procedure(s) after DC: None Hospital Course: As above - Patient Instructions Diet: Usual Diet as Tolerated (as above in additional instructions) Activity: As Tolerated (PT/OT to cont to eval/tx) Driving: Do Not Drive Showering/Bathing: May Shower Notify Provider of: Fever, Increased Pain, Swelling and Redness, Nausea and/or Vomiting - Discharge Plan Prescriptions/Med Rec: Carbidopa/Levodopa [Sinemet 25-100 mg] 1 tab PO QID #60 tablet Levofloxacin [Levaquin] 500 mg PO Q24H #20 tablet Nitrofurantoin Monohyd/M-Cryst [IJD: Nitrofurantoin [place]-MCR] 100 mg PO BID #20 capsule Home Medications: Home Meds Sennosides [Senna] 8.6 mg PO BEDTIME 10/17/15 [History] Bisacodyl [Dulcolax] 10 mg RECTAL Q3D 03/21/16 [History] Cyclobenzaprine [Flexeril] 10 mg PO BID 03/21/16 [History] Sennosides/Docusate Sodium [Senna-Docusate Sodium] 1 tab PO BID 03/21/16 [ History] Triamcinolone Acetonide [Triamcinolone Acetonide 0.5%] 1 applic TOP BID PRN [History] Omeprazole 20 mg PO DAILY 05/09/16 [History] Acetaminophen 650 mg PO Q4H PRN 07/01/16 [History] Lidocaine 5% 1 applic TOP Q4H PRN 07/01/16 [History] rOPINIRole HCl [Requip] 10 mg PO 07/01/16 [History] rOPINIRole HCl [rOPINIRole] 5 mg PO DAILY@1500 02/07/17 [History] Arginine/Glutamine/Calcium Hmb [Mayito Packet] 1 pack PO BIDMEALS 02/08/17 [ History] Bisacodyl [Dulcolax] 10 mg PO DAILY PRN 02/08/17 [History] Fructooligosaccharides/Polydex [Hyfiber with Fos Liquid] 1 oz PO DAILY 02/08/17 [History] Lactose-Reduced Food [Boost] 4 oz PO TIDMEALS 02/08/17 [History] Lactose-Reduced Food/Fiber [Jevity 1.5 Garth Liquid] 100 ml PO BIDMEALS 02/08/17 [ History] Lidocaine 5% 1 applic TOP BID PRN 02/08/17 [History] Mupirocin Oint [Bactroban Oint] 1 applic PEGTUBE DAILY 02/08/17 [History] Water 30 ml PEGTUBE BID 02/08/17 [History] Carbidopa/Levodopa [Sinemet 25-100 mg] 1 tab PO QID #60 tablet 02/10/17 [Rx] Levofloxacin [Levaquin] 500 mg PO Q24H #20 tablet 02/11/17 [Rx] Nitrofurantoin Monohyd/M-Cryst [IJD: Nitrofurantoin [place]-MCR] 100 mg PO BID #20 capsule 02/11/17 [Rx] Patient Handouts: Thickening Liquids for Dysphagia Diet, Parkinson Disease, [id number], Urinary Tract Infection, Adult, [id number], Hypertension, Easy- to-Read, Dysphagia Diet Level 2, Mechanically Altered, Managing Your High Blood Pressure Referrals: Juan C Cisneros MD [Primary Care Provider] - (Please schedule a follow-up appointment with patient's primary care provider, Dr. Cisneros, within 1-2 weeks. ) - Discharge Summary/Plan Comment DC Time >30 min.: Yes (40 min) - Patient Data Vitals - Most Recent: Last Vital Signs Temp 98.1 F 02/10/17 08:25 Pulse 72 02/10/17 08:25 Resp 16 02/10/17 08:25 BP 106/73 02/10/17 08:25 Pulse Ox 97 02/10/17 08:25 Weight - Most Recent: 87.407 kg I&O - Last 24 hours: Intake & Output 02/09/17 02/10/17 02/10/17 22:59 06:59 14:59 Intake Total 1927 994 540 Output Total 1700 925 Balance 227 69 540 Lab Results - Last 24 hrs: Laboratory Results - last 24 hr 02/10/17 02/10/17 02/10/17 Range/Units 06:09 06:09 06:09 WBC 5.62 (4.23-9.07) K/mm3 RBC 4.44 L (4.63-6.08) M/mm3 Hgb 14.5 (13.7-17.5) gm/L Hct 42.2 (40.1-51.0) % MCV 95.0 H (79.0-92.2) fl MCH 32.7 H (25.7-32.2) pg MCHC 34.4 (32.2-35.5) g/dl RDW Std Deviation 43.4 (35.1-43.9) fL Plt Count 178 (163-337) K/mm3 MPV 10.3 (9.4-12.3) fl Neut % (Auto) 62.0 (34.0-67.9) % Lymph % (Auto) 22.2 (21.8-53.1) % [place] % (Auto) 11.7 (5.3-12.2) % Eos % (Auto) 3.4 (0.8-7.0) Baso % (Auto) 0.5 (0.1-1.2) % Neut # (Auto) 3.48 (1.78-5.38) K/mm3 Lymph # (Auto) 1.25 L (1.32-3.57) K/mm3 [place] # (Auto) 0.66 (0.30-0.82) K/mm3 Eos # (Auto) 0.19 (0.04-0.54) K/mm3 Baso # (Auto) 0.03 (0.01-0.08) K/mm3 Sodium 140 (136-145) mEq/L Potassium 3.9 (3.5-5.1) mEq/L Chloride 106 (98-107) mEq/L Carbon Dioxide 26 (21-32) mEq/L Anion Gap 11.9 (5-15) BUN 17 (7-18) mg/dL Creatinine 1.0 (0.7-1.3) mg/dL Est Cr Clr Drug Dosing 75.55 mL/min Estimated GFR (MDRD) > 60 (>60) mL/min BUN/Creatinine Ratio 17.0 (14-18) Glucose 94 (80-115) mg/dL Lactic Acid 0.7 (0.4-2.0) mmol/L Calcium 8.7 (8.5-10.1) mg/dL Magnesium 1.8 (1.8-2.4) mg/dl C-Reactive Protein 0.4 (<1.0) mg/dL Med Orders - Current: Current Medications Acetaminophen (Tylenol) 650 mg PO Q4H PRN PRN Reason: Pain Last Admin: 02/09/17 01:13 Dose: 650 mg Bisacodyl (Dulcolax) 10 mg RECTAL Q3D [facility] Last Admin: 02/07/17 22:58 Dose: 10 mg Carbidopa/Levodopa (Sinemet 25-100 Mg) 1 tab PO QID [facility] Last Admin: 02/10/17 12:24 Dose: 1 tab Cyclobenzaprine HCl (Flexeril) 10 mg PO BID [facility] Last Admin: 02/10/17 10:06 Dose: 10 mg Enoxaparin Sodium (Lovenox) 40 mg SUBCUT DAILY [facility] Last Admin: 02/10/17 10:06 Dose: 40 mg Levofloxacin/Dextrose 750 mg/ (Premix) 150 mls @ 100 mls/hr IV Q24H [facility] Last Admin: 02/10/17 14:23 Dose: 100 mls/hr Mupirocin (Bactroban Oint) 0 gm TOP DAILY [facility] Last Admin: 02/10/17 10:06 Dose: 1 applic Nitrofurantoin Macrocrystals (Macrobid) 100 mg PO BID [facility] Stop: 02/19/17 21:01 Last Admin: 02/10/17 12:24 Dose: 100 mg Pantoprazole Sodium (Protonix) 40 mg PO DAILY@0700 [facility] Last Admin: 02/10/17 06:49 Dose: 40 mg Lidocaine 5% 1 (Ointment) 0 each TOP Q4H PRN PRN Reason: Other Water 30 Ml 0 each .XX BID [facility] Last Admin: 02/10/17 10:11 Dose: 1 each Ropinirole HCl (Ropinirole Hcl) 5 mg PO DAILY@1500 [facility] Last Admin: 02/10/17 14:23 Dose: 5 mg Ropinirole HCl (Ropinirole Hcl) 10 mg PO BID@0700,2100 [facility] Last Admin: 02/10/17 06:49 Dose: 10 mg Saccharomyces Boulardii (Florastor) 250 mg PO BID [facility] Last Admin: 02/10/17 12:24 Dose: 250 mg Senna/Docusate Sodium (Senna Plus) 1 tab PO BID [facility] Last Admin: 02/10/17 10:06 Dose: 1 tab Sodium Chloride (Saline Flush) 10 ml FLUSH ASDIRECTED PRN PRN Reason: Keep Vein Open Last Admin: 02/07/17 12:39 Dose: 10 ml Triamcinolone Acetonide (Triamcinolone Acetonide 0.5%) 0 gm TOP BID PRN PRN Reason: psoriasis Discontinued Medications Bisacodyl (Dulcolax) 10 mg RECTAL ONETIME ONE Stop: 02/09/17 04:14 Last Admin: 02/09/17 05:16 Dose: 10 mg Carbidopa/Levodopa (Sinemet 25-250 Mg) 1 tab PO BID@0800,2000 [facility] Last Admin: 02/08/17 12:05 Dose: Not Given Carbidopa/Levodopa (Sinemet 10-100 Mg) 2 tab PO ONETIME ONE Stop: 02/07/17 23:57 Last Admin: 02/08/17 00:21 Dose: 2 tab Diphenhydramine HCl (Benadryl) 25 mg IVPUSH ONETIME ONE Stop: 02/07/17 13:50 Last Admin: 02/07/17 13:56 Dose: 25 mg Hydromorphone HCl (Dilaudid) 0.5 mg IVPUSH ONETIME ONE Stop: 02/07/17 16:35 Last Admin: 02/07/17 16:40 Dose: 0.5 mg Levofloxacin/Dextrose 500 mg/ (Premix) 100 mls @ 100 mls/hr IV ONETIME ONE Stop: 02/07/17 16:19 Last Admin: 02/07/17 16:18 Dose: 100 mls/hr Sodium Chloride (Normal Saline) 1,000 mls @ 999 mls/hr IV ASDIRECTED ONE Stop: 02/07/17 21:08 Last Admin: 02/07/17 21:46 Dose: 999 mls/hr Sodium Chloride (Normal Saline) 1,000 mls @ 100 mls/hr IV ONETIME ONE Stop: 02/08/17 09:20 Last Admin: 02/07/17 23:36 Dose: 999 mls/hr Sodium Chloride (Normal Saline) 1,000 mls @ 70 mls/hr IV ASDIRECTED ONE Stop: 02/08/17 13:38 Last Admin: 02/08/17 07:35 Dose: Not Given Sodium Chloride (Normal Saline) 1,000 mls @ 100 mls/hr IV ASDIRECTED [facility] Stop: 02/08/17 06:41 Last Admin: 02/08/17 00:50 Dose: 100 mls/hr Sodium Chloride (Normal Saline) 1,000 mls @ 70 mls/hr IV ASDIRECTED [facility] Last Admin: 02/10/17 11:06 Dose: 70 mls/hr Magnesium Sulfate 2 gm/ Premix 50 mls @ 25 mls/hr IV ONETIME ONE Stop: 02/08/17 13:40 Last Admin: 02/08/17 14:47 Dose: 25 mls/hr Vancomycin HCl 1 gm/ Sodium (Chloride) 250 mls @ 250 mls/hr IV ONETIME ONE Stop: 02/08/17 19:21 Last Admin: 02/08/17 19:58 Dose: 250 mls/hr Vancomycin HCl 1 gm/ Sodium (Chloride) 250 mls @ 250 mls/hr IV Q12H [facility] Vancomycin HCl 1 gm/Vancomycin HCl 250 mg/ Sodium Chloride 250 mls @ 166 mls/ hr IV Q12H [facility] Last Admin: 02/09/17 08:01 Dose: 166 mls/hr Magnesium Hydroxide (Milk Of Magnesia) 30 ml PO ONETIME ONE Stop: 02/08/17 12:08 Last Admin: 02/08/17 13:04 Dose: 30 ml Ropinirole 4mg Tab * (*Patient's Own) 2 each PO BID@0700,2100 [facility] Last Admin: 02/08/17 07:28 Dose: Not Given Ropinirole 2 Mg Tab (Patient's Own) 1 each PO BID [facility] Last Admin: 02/08/17 00:22 Dose: 1 each Ropinirole 2 Mg Tab (Patient's Own) 1 each PO BID@0700,2100 [facility] Last Admin: 02/08/17 07:02 Dose: 1 each Non-Formulary Medication (Ropinirole Hcl) 2 mg PO BID [facility] Non-Formulary Medication (Lactose-Reduced Food/Fiber [Jevity 1.5 Garth Liquid]) 100 ml PO BIDMEALS [facility] Ropinirole 5 Mg Tab (Patient's Own) 0 each PO DAILY@1500 [facility] Last Admin: 02/08/17 14:47 Dose: 1 each Ropinirole 10 Mg Tab (Patient's Own) 0 each PO BID@0700,2100 [facility] Last Admin: 02/09/17 06:38 Dose: 10 each Ropinirole HCl (Requip) 5 mg PO DAILY@1500 [facility] Ropinirole HCl (Requip) 8 mg PO BID [facility] Last Admin: 02/08/17 07:28 Dose: Not Given Vancomycin HCl (Pharmacy To Dose - Vancomycin) 0 dose .XX ASDIRECTED PRN PRN Reason: RX TO DOSE VANCOMYCIN *Q Meaningful Use (DIS) - VTE *Q VTE Criteria *Q: - Stroke *Q Stroke Criteria *Q: - AMI *Q AMI Criteria *Q: <Rani Martínez - Last Filed: 02/11/17 10:23> Discharge Summary - Hospital Course Free Text/Narrative:: Levoquin and Macrobid as ordered; marshall has been changed before DC. - Discharge Diagnosis/Problem(s) (1) Marshall catheter in place SNOMED Code(s): 456006627 ICD Code: Z92.89 - PERSONAL HISTORY OF OTHER MEDICAL TREATMENT Status: Chronic Priority: Medium Current Visit: Yes (2) Supranuclear palsy SNOMED Code(s): 04564795 ICD Code: G23.1 - PROGRESSIVE SUPRANUCLEAR OPHTHALMOPLEGIA Status: Acute Current Visit: Yes (3) Hypertension SNOMED Code(s): 20931540 ICD Code: I10 - ESSENTIAL (PRIMARY) HYPERTENSION Status: Acute Current Visit: Yes (4) Hyperlipidemia SNOMED Code(s): 95585876 ICD Code: E78.5 - HYPERLIPIDEMIA, UNSPECIFIED Status: Acute Current Visit : Yes (5) CAD (coronary artery disease) SNOMED Code(s): 68858604 ICD Code: I25.10 - ATHSCL HEART DISEASE OF [place] CORONARY ARTERY W/O ANG PCTRS Status: Acute Current Visit: Yes (6) Parkinson disease SNOMED Code(s): 47216139 ICD Code: G20 - PARKINSON'S DISEASE Status: Chronic Priority: Medium Current Visit: Yes (7) Tardive dyskinesia SNOMED Code(s): 610308723 ICD Code: G24.01 - DRUG INDUCED SUBACUTE DYSKINESIA Status: Resolved Current Visit: Yes (8) Urinary tract infection SNOMED Code(s): 69958999 ICD Code: N39.0 - URINARY TRACT INFECTION, SITE NOT SPECIFIED Status: Acute Priority: High Current Visit: Yes Qualifiers: Urinary tract infection type: acute cystitis Hematuria presence: with hematuria Qualified Code(s): N30.01 - Acute cystitis with hematuria - Patient Summary/Data Consults: Consultations 02/07/17 20:12 Consult to Case Management [CONS] Routine Consult to Occupational Therapy [OT Evaluation and Treatment] [CONS] Routine Consult to Physical Therapy [PT Evaluation and Treatment] [CONS] Routine 02/08/17 08:08 Consult to Speech Language Pathology [[employer]IOR SOFTWARE ENGINEER JAVA Evaluation and Treatment] [CONS] Routine - Patient Data Vitals - Most Recent: Last Vital Signs Temp 36.7 C 02/11/17 07:42 Pulse 73 02/11/17 07:42 Resp 16 02/11/17 07:42 BP 110/70 02/11/17 07:42 Pulse Ox 97 02/11/17 07:42 I&O - Last 24 hours: Intake & Output 02/10/17 02/11/17 02/11/17 22:59 06:59 14:59 Intake Total 550 240 360 Output Total 1000 1000 Balance -450 -760 360 Lab Results - Last 24 hrs: Laboratory Results - last 24 hr 02/11/17 02/11/17 Range/Units 06:00 06:00 WBC 7.48 (4.23-9.07) K/mm3 RBC 4.27 L (4.63-6.08) M/mm3 Hgb 14.0 (13.7-17.5) gm/L Hct 41.2 (40.1-51.0) % MCV 96.5 H (79.0-92.2) fl MCH 32.8 H (25.7-32.2) pg MCHC 34.0 (32.2-35.5) g/dl RDW Std Deviation 44.5 H (35.1-43.9) fL Plt Count 186 (163-337) K/mm3 MPV 10.5 (9.4-12.3) fl Neut % (Auto) 68.1 H (34.0-67.9) % Lymph % (Auto) 19.7 L (21.8-53.1) % [place] % (Auto) 9.0 (5.3-12.2) % Eos % (Auto) 2.5 (0.8-7.0) Baso % (Auto) 0.4 (0.1-1.2) % Neut # (Auto) 5.10 (1.78-5.38) K/mm3 Lymph # (Auto) 1.47 (1.32-3.57) K/mm3 [place] # (Auto) 0.67 (0.30-0.82) K/mm3 Eos # (Auto) 0.19 (0.04-0.54) K/mm3 Baso # (Auto) 0.03 (0.01-0.08) K/mm3 Sodium 140 (136-145) mEq/L Potassium 3.8 (3.5-5.1) mEq/L Chloride 107 (98-107) mEq/L Carbon Dioxide 26 (21-32) mEq/L Anion Gap 10.8 (5-15) BUN 17 (7-18) mg/dL Creatinine 1.1 (0.7-1.3) mg/dL Est Cr Clr Drug Dosing 68.68 mL/min Estimated GFR (MDRD) > 60 (>60) mL/min BUN/Creatinine Ratio 15.5 (14-18) Glucose 99 (80-115) mg/dL Calcium 8.7 (8.5-10.1) mg/dL Magnesium 1.8 (1.8-2.4) mg/dl C-Reactive Protein 0.6 (<1.0) mg/dL Med Orders - Current: Current Medications Acetaminophen (Tylenol) 650 mg PO Q4H PRN PRN Reason: Pain Last Admin: 02/09/17 01:13 Dose: 650 mg Bisacodyl (Dulcolax) 10 mg RECTAL Q3D [facility] Last Admin: 02/10/17 20:20 Dose: Not Given Carbidopa/Levodopa (Sinemet 25-100 Mg) 1 tab PO QID [facility] Last Admin: 02/11/17 08:13 Dose: 1 tab Cyclobenzaprine HCl (Flexeril) 10 mg PO BID [facility] Last Admin: 02/11/17 08:13 Dose: 10 mg Enoxaparin Sodium (Lovenox) 40 mg SUBCUT DAILY [facility] Last Admin: 02/11/17 08:12 Dose: 40 mg Levofloxacin/Dextrose 750 mg/ (Premix) 150 mls @ 100 mls/hr IV Q24H [facility] Last Admin: 02/10/17 14:23 Dose: 100 mls/hr Mupirocin (Bactroban Oint) 0 gm TOP DAILY [facility] Last Admin: 02/11/17 08:14 Dose: 1 applic Nitrofurantoin Macrocrystals (Macrobid) 100 mg PO BID [facility] Stop: 02/19/17 21:01 Last Admin: 02/11/17 08:12 Dose: 100 mg Pantoprazole Sodium (Protonix) 40 mg PO DAILY@0700 [facility] Last Admin: 02/11/17 06:00 Dose: 40 mg Lidocaine 5% 1 (Ointment) 0 each TOP Q4H PRN PRN Reason: Other Water 30 Ml 0 each .XX BID [facility] Last Admin: 02/10/17 21:00 Dose: 30 each Ropinirole HCl (Ropinirole Hcl) 5 mg PO DAILY@1500 [facility] Last Admin: 02/10/17 14:23 Dose: 5 mg Ropinirole HCl (Ropinirole Hcl) 10 mg PO BID@0700,2100 [facility] Last Admin: 02/11/17 06:00 Dose: 10 mg Saccharomyces Boulardii (Florastor) 250 mg PO BID [facility] Last Admin: 02/11/17 08:12 Dose: 250 mg Senna/Docusate Sodium (Senna Plus) 1 tab PO BID [facility] Last Admin: 02/11/17 08:13 Dose: 1 tab Sodium Chloride (Saline Flush) 10 ml FLUSH ASDIRECTED PRN PRN Reason: Keep Vein Open Last Admin: 02/07/17 12:39 Dose: 10 ml Triamcinolone Acetonide (Triamcinolone Acetonide 0.5%) 0 gm TOP BID PRN PRN Reason: psoriasis Discontinued Medications Bisacodyl (Dulcolax) 10 mg RECTAL ONETIME ONE Stop: 02/09/17 04:14 Last Admin: 02/09/17 05:16 Dose: 10 mg Carbidopa/Levodopa (Sinemet 25-250 Mg) 1 tab PO BID@0800,2000 [facility] Last Admin: 02/08/17 12:05 Dose: Not Given Carbidopa/Levodopa (Sinemet 10-100 Mg) 2 tab PO ONETIME ONE Stop: 02/07/17 23:57 Last Admin: 02/08/17 00:21 Dose: 2 tab Diphenhydramine HCl (Benadryl) 25 mg IVPUSH ONETIME ONE Stop: 02/07/17 13:50 Last Admin: 02/07/17 13:56 Dose: 25 mg Hydromorphone HCl (Dilaudid) 0.5 mg IVPUSH ONETIME ONE Stop: 02/07/17 16:35 Last Admin: 02/07/17 16:40 Dose: 0.5 mg Levofloxacin/Dextrose 500 mg/ (Premix) 100 mls @ 100 mls/hr IV ONETIME ONE Stop: 02/07/17 16:19 Last Admin: 02/07/17 16:18 Dose: 100 mls/hr Sodium Chloride (Normal Saline) 1,000 mls @ 999 mls/hr IV ASDIRECTED ONE Stop: 02/07/17 21:08 Last Admin: 02/07/17 21:46 Dose: 999 mls/hr Sodium Chloride (Normal Saline) 1,000 mls @ 100 mls/hr IV ONETIME ONE Stop: 02/08/17 09:20 Last Admin: 02/07/17 23:36 Dose: 999 mls/hr Sodium Chloride (Normal Saline) 1,000 mls @ 70 mls/hr IV ASDIRECTED ONE Stop: 02/08/17 13:38 Last Admin: 02/08/17 07:35 Dose: Not Given Sodium Chloride (Normal Saline) 1,000 mls @ 100 mls/hr IV ASDIRECTED [facility] Stop: 02/08/17 06:41 Last Admin: 02/08/17 00:50 Dose: 100 mls/hr Sodium Chloride (Normal Saline) 1,000 mls @ 70 mls/hr IV ASDIRECTED [facility] Last Admin: 02/10/17 11:06 Dose: 70 mls/hr Magnesium Sulfate 2 gm/ Premix 50 mls @ 25 mls/hr IV ONETIME ONE Stop: 02/08/17 13:40 Last Admin: 02/08/17 14:47 Dose: 25 mls/hr Vancomycin HCl 1 gm/ Sodium (Chloride) 250 mls @ 250 mls/hr IV ONETIME ONE Stop: 02/08/17 19:21 Last Admin: 02/08/17 19:58 Dose: 250 mls/hr Vancomycin HCl 1 gm/ Sodium (Chloride) 250 mls @ 250 mls/hr IV Q12H [facility] Vancomycin HCl 1 gm/Vancomycin HCl 250 mg/ Sodium Chloride 250 mls @ 166 mls/ hr IV Q12H [facility] Last Admin: 02/09/17 08:01 Dose: 166 mls/hr Magnesium Hydroxide (Milk Of Magnesia) 30 ml PO ONETIME ONE Stop: 02/08/17 12:08 Last Admin: 02/08/17 13:04 Dose: 30 ml Ropinirole 4mg Tab * (*Patient's Own) 2 each PO BID@0700,2100 [facility] Last Admin: 02/08/17 07:28 Dose: Not Given Ropinirole 2 Mg Tab (Patient's Own) 1 each PO BID [facility] Last Admin: 02/08/17 00:22 Dose: 1 each Ropinirole 2 Mg Tab (Patient's Own) 1 each PO BID@0700,2100 [facility] Last Admin: 02/08/17 07:02 Dose: 1 each Non-Formulary Medication (Ropinirole Hcl) 2 mg PO BID [facility] Non-Formulary Medication (Lactose-Reduced Food/Fiber [Jevity 1.5 Garth Liquid]) [facility] Rop[facility] 5 Mg Tab (Patient's Own) 0 each PO DAILY@1500 [facility] Last Admin: 02/08/17 14:47 Dose: 1 each Ropinirole 10 Mg Tab (Patient's Own) 0 each PO BID@0700,2100 [facility] Last Admin: 02/09/17 06:38 Dose: 10 each Ropinirole HCl (Requip) 5 mg PO DAILY@1500 [facility] Ropinirole HCl (Requip) 8 mg PO BID [facility] Last Admin: 02/08/17 07:28 Dose: Not Given Vancomycin HCl (Pharmacy To Dose - Vancomycin) 0 dose .XX ASDIRECTED PRN PRN Reason: RX TO DOSE VANCOMYCIN *Q Meaningful Use (DIS) - VTE *Q VTE Criteria *Q: - Stroke *Q Stroke Criteria *Q: - AMI *Q AMI Criteria *Q:
[2017-02-10] MEDS: Bisacodyl 10 MG Supp RECTAL SCH ×2 (20:12→20:20)
[2017-02-11] MEDS: Pantoprazole 40 MG Tab.CR PO SCH (06:00)
[2017-02-11] MEDS: Saccharomyces Boulardii (Probiotic) 250 MG Cap PO SCH (08:12)
[2017-02-11] MEDS: Enoxaparin 40 MG/0.4 ML Syringe SUBCUT SCH (08:12)
[2017-02-11] MEDS: Nitrofurantoin Monohydrate/Macrocrystalline 100 MG Cap PO SCH (08:12)
[2017-02-11] MEDS: Carbidopa/Levodopa 25-100 MG Tab PO SCH ×2 (08:13→12:18)
[2017-02-11] MEDS: Cyclobenzaprine 10 MG Tab PO SCH (08:13)
[2017-02-11] MEDS: Mupirocin Oint 22 GM Tube TOP SCH (08:14)
[2017-02-11 08:32] VITALS: BP 110/70
[2017-02-11] MEDS: WATER SCH (10:00)
== END 2017-02-11 13:05 | DRG 690 ==
LOC: JD.ED 12:18 → JD.MS 18:11 → UNDOADMIN 18:11 → JD.MS 19:08 → UNDODISIN 02-11 13:05
PROVIDERS: ADMIT Internal Medicine Cardiovascular Disease; ATTEND Internal Medicine Cardiovascular Disease
DX: N39.0 Urinary tract infection, site not specified (principal); G23.1 Progressive supranuclear ophthalmoplegia [Steele-Richardson-Olszewski]; I25.810 Atherosclerosis of coronary artery bypass graft(s) without angina pectoris; Z93.6 Other artificial openings of urinary tract status; E78.00 Pure hypercholesterolemia, unspecified; Z95.1 Presence of aortocoronary bypass graft; E78.5 Hyperlipidemia, unspecified; I10 Essential (primary) hypertension; K59.09 Other constipation; N31.9 Neuromuscular dysfunction of bladder, unspecified; M19.90 Unspecified osteoarthritis, unspecified site; G89.29 Other chronic pain; M54.9 Dorsalgia, unspecified; F32.9 Major depressive disorder, single episode, unspecified; E32.9 Disease of thymus, unspecified; H91.90 Unspecified hearing loss, unspecified ear; Z79.899 Other long term (current) drug therapy; Z87.891 Personal history of nicotine dependence; G20 Parkinson's disease; G24.01 Drug induced subacute dyskinesia; Z66 Do not resuscitate; Z93.1 Gastrostomy status; B95.61 Methicillin susceptible Staphylococcus aureus infection as the cause of diseases classified elsewhere; B95.2 Enterococcus as the cause of diseases classified elsewhere; B96.89 Other specified bacterial agents as the cause of diseases classified elsewhere; B96.5 Pseudomonas (aeruginosa) (mallei) (pseudomallei) as the cause of diseases classified elsewhere
CPT/HCPCS: 36415; 70450; 71010; 80053; 81001; 84484; 85025; 87040 ×2; 87077; 87086; 87088 ×3; 87186 ×4; 96365; 96375; 99285; J1170; J1200; J1956; J7050; 80048; 83605; 83735; 86140; 87641; 92610-GN; 97162-GP; 97167-GO; 97530-GO; 97530-GP; 99284; A9270-GY; J1650; J3370; J3475; J7040

== ENCOUNTER 2017-04-02 16:33 | Emergency (ER) | payer MEDICARE, BC, MEDICAID ==
[2017-04-02 16:45] VITALS: BP 112/72
--- NOTE | 2017-04-02 16:47 | EDM.PDOC ---
ED HPI GENERAL MEDICAL PROBLEM - General Chief Complaint: Gastrointestinal Problem Stated Complaint: [facility] Time Seen by Provider: 04/02/17 16:46 Source of Information: Reports: EMS, [facility] Records History Limitations: Reports: Other (Patient is unable to speak because of severe end-stage Parkinson's disease.) - History of Present Illness INITIAL COMMENTS - FREE TEXT/NARRATIVE: patient arrives in the ED because he's pulled out his gastric tube. It's unclear what type of tube was in place. Try and get a picture of it from the residential and see if we have something to replace it otherwise we will use a Marshall catheter. Onset: Today Onset Date: 04/02/17 Onset Time: 16:00 Duration: Hour(s): Location: Reports: Abdomen (patient accidentally pulled out his gastric feeding tube.) Context: Reports: Other (patient has end-stage Parkinson's disease and is using a G-tube to supplement his nutritional needs. He is able to swallow. Food at mealtimes and then receives an sure and other protein supplements through the G- tube during the day. This information is provided by the daughter.). Denies: Activity, Exercise, Lifting, Sick Contact, Trauma Associated Symptoms: Reports: Confusion. 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 (see below) - Related Data Allergies Allergy/AdvReac Type Severity Reaction Status Date / Time No Known Allergies Allergy Verified 04/02/17 16:41 Home Meds: Home Meds Sennosides [Senna] 8.6 mg PO BEDTIME 10/17/15 [History] Bisacodyl [Dulcolax] 10 mg RECTAL Q3D 03/21/16 [History] Cyclobenzaprine [Flexeril] 10 mg PO BID 03/21/16 [History] Sennosides/Docusate Sodium [Senna-Docusate Sodium] 1 tab PO BID 03/21/16 [ History] Triamcinolone Acetonide [Triamcinolone Acetonide 0.5%] 1 applic TOP BID PRN [History] Omeprazole 20 mg PO DAILY 05/09/16 [History] Acetaminophen 650 mg PO Q4H PRN 07/01/16 [History] Lidocaine 5% 1 applic TOP Q4H PRN 07/01/16 [History] rOPINIRole HCl [Requip] 10 mg PO 07/01/16 [History] rOPINIRole HCl [rOPINIRole] 5 mg PO DAILY@1500 02/07/17 [History] Arginine/Glutamine/Calcium Hmb [Mayito Packet] 1 pack PO BIDMEALS 02/08/17 [ History] Bisacodyl [Dulcolax] 10 mg PO DAILY PRN 02/08/17 [History] Fructooligosaccharides/Polydex [Hyfiber with Fos Liquid] 1 oz PO DAILY 02/08/17 [History] Lactose-Reduced Food [Boost] 4 oz PO TIDMEALS 02/08/17 [History] Lactose-Reduced Food/Fiber [Jevity 1.5 Garth Liquid] 100 ml PO BIDMEALS 02/08/17 [ History] Lidocaine 5% 1 applic TOP BID PRN 02/08/17 [History] Mupirocin Oint [Bactroban Oint] 1 applic PEGTUBE DAILY 02/08/17 [History] Water 30 ml PEGTUBE BID 02/08/17 [History] Carbidopa/Levodopa [Sinemet 25-100 mg] 1 tab PO QID #60 tablet 02/10/17 [Rx] Levofloxacin [Levaquin] 500 mg PO Q24H #20 tablet 02/11/17 [Rx] Nitrofurantoin Monohyd/M-Cryst [IJD: Nitrofurantoin Spencer-MCR] 100 mg PO BID #20 capsule 02/11/17 [Rx] Past Medical History HEENT History: Reports: Hard of Hearing, Impaired Vision Other HEENT History: Hearing aids Cardiovascular History: Reports: Bypass, High Cholesterol, Hypertension Other Cardiovascular History: 2002 x2 Respiratory History: Reports: Pneumonia, Recurrent, Other (See Below) Other Respiratory History: aspiration d/t difficulty swallowing Gastrointestinal History: Reports: Chronic Constipation Genitourinary History: Reports: Neurogenic Bladder, Retention, Urinary Other Genitourinary History: chronic marshall Musculoskeletal History: Reports: Back Pain, Chronic, Osteoarthritis Neurological History: Reports: Other (See Below) Other Neuro History: progressive supranuclearpalsy Psychiatric History: Reports: Depression, Mood Swings Endocrine/Metabolic History: Reports: Other (See Below) Other Endocrine/Metabolic History: Graves Hematologic History: Reports: None Dermatologic History: Reports: Venous Stasis Dermatitis - Past Surgical History HEENT Surgical History: Reports: Tonsillectomy, Other (See Below) Cardiovascular Surgical History: Reports: Coronary Artery Bypass Social & Family History - Family History Family Medical History: Noncontributory - Tobacco Use Smoking Status *Q: Unknown Ever Smoked Years of Tobacco use: 20 Used Tobacco, but Quit: Yes Month Tobacco Last Used: 1986 Second Hand Smoke Exposure: No - Caffeine Use Caffeine Use: Reports: None - Recreational Drug Use Recreational Drug Use: No - Living Situation & Occupation Living situation: Reports: , Extended Care Facility Occupation: Disabled ED ROS GENERAL - Review of Systems Review Of Systems: Unable To Obtain (patient has severe end-stage Parkinson disease and is nonverbal. He motions and is alert but he is not able to communicate. Information was primarily obtained from his daughter whom came over after he arrived in the ED.) ED EXAM, GI/ABD - Physical Exam Exam: See Below Exam Limited By: Altered Mental Status (patient has end-stage Parkinson's disease and is nonverbal.) General Appearance: Alert, No Apparent Distress, Other (has typical mask like face ease and appears fearful.) Eyes: Bilateral: Normal Appearance (no jaundice) Throat/Mouth: Normal Lips, Other (tongue is mildly dry and coated.). No: Normal Teeth Head: Atraumatic, Normocephalic Neck: Normal Inspection, Supple, Non-Tender, Limited Range of Motion. No: Full Range of Motion Respiratory/Chest: Lungs Clear, Normal Breath Sounds, No Accessory Muscle Use Cardiovascular: Regular Rate, Rhythm, No Edema, No Murmur, No Rub GI/Abdominal Exam: Abnormal Bowel Sounds (hypoactive bowel sounds.), Other ( patient has an ostomy mid abdomen where his G-tube was. He has prompt flush at the ostial opening with slight bleeding evident. Dominant wall is very firm to palpation due to spasticity of the rectus abdominis muscles.) Back Exam: Normal Inspection. No: Full Range of Motion Extremities: Other (patient has rigidity in all of his limbs with cogwheel rigidity evident in the upper limbs.) Neurological: No: Normal Reflexes, No Motor/Sensory Deficits Psychiatric: No: Normal Affect, Normal Mood Skin Exam: Warm, Dry, Intact, Normal Color, No Rash Course - Vital Signs Last Recorded V/S: Last Vital Signs Temp 36.6 C 04/02/17 16:42 Pulse 93 04/02/17 16:42 Resp BP 112/72 04/02/17 16:42 Pulse Ox 95 04/02/17 16:42 - Orders/Labs/Meds Meds: Medications Discontinued Medications Generic Name Dose Route Start Last Admin Trade Name Tayla PRN Reason Stop Dose Admin Lidocaine HCl 10 ml 04/02/17 17:17 04/02/17 17:29 Xylocaine 2% Jelly MUCMEM 04/02/17 17:18 10 ml ONETIME ONE Administration - Radiology Interpretation Free Text/Narrative:: 71-year-old male arrives in the ED from a local residential. Patient has end- stage Parkinson's disease and his poor accidentally pulled out his G-tube. He uses the G-tube for supplemental feedings. His primary diet is. Food that he is able to take mealtime and is being fed. Gets things like answer intermittently throughout the day for nutritional supplement. We had the residential send over a picture of his G-tube that came out and we do not have a similar tube available here in the department or in central supply. Therefore we will make do with a 16-gauge Marshall catheter with a 30 mL balloon. - Re-Assessments/Exams Free Text/Narrative Re-Assessment/Exam: 04/02/17 17:50 I was able to reinsert a 16-gauge Marshall catheter with 30 mL balloon into the ostomy with modest amount of difficulty due to spasticity of the muscles. Good amount of air came out of the Marshall catheter port. I was in able to infuse 50 mL of normal saline easily into the stomach. I'm happy that it 's in adequate position. Therefore he may be able to use it for feeding immediately. He will now be discharged back to the residential. Departure - Departure Time of Disposition: 17:49 Disposition: DC/Tfer to [facility] Condition: Fair, Poor Clinical Impression: Encounter for feeding tube placement - Discharge Information Forms: ED Department Discharge Additional Instructions: 71-year-old male with severe end-stage Parkinson's disease presents to the ED after he pulled out his gastric tube used for feedings. We have no similar gastric tubes within the hospital to replace it. Therefore a 16 gauge Marshall catheter with a 30 mL balloon was utilized to temporize gastric feedings until the appropriate tube can be reordered and inserted by his physician or surgeon. May resume feedings through the Marshall catheter tube immediately.tube was lavaged through the emergency room with 50 mL of normal saline without any problems.
[2017-04-02] MEDS ORDERED: Lidocaine 2% Jelly 10 ML Urojet MUCMEM ONE (17:17)
[2017-04-02] MEDS ORDERED: Benztropine 1 MG Tab PO ONE (18:34)
[2017-04-02] MEDS ORDERED: Carbidopa/Levodopa 25-100 MG Tab PO ONE (18:34)
== END 2017-04-02 18:00 ==
LOC: JD.ED 16:33
DX: Z43.1 Encounter for attention to gastrostomy (principal); E78.00 Pure hypercholesterolemia, unspecified; I10 Essential (primary) hypertension; Z87.891 Personal history of nicotine dependence
CPT/HCPCS: 43760; 99285; A9270; 99284-25

== ENCOUNTER 2017-05-26 09:58 | Inpatient (IN) | payer MEDICARE, BC, MEDICAID ==
--- NOTE | 2017-05-26 10:34 | EDM.PDOC ---
ED HPI GENERAL MEDICAL PROBLEM - General Chief Complaint: Fever Stated Complaint: SENT BY [facility] Time Seen by Provider: 05/26/17 10:31 Source of Information: Reports: Patient, Detention Records - History of Present Illness INITIAL COMMENTS - FREE TEXT/NARRATIVE: 71-year-old male brought to the ED per wheelchair from [facility] for evaluation of fever. It's unclear how long he has been ill. Patient presents in a moribund status. He lies perfectly flat and is unresponsive and nonverbal. Mouth is extremely dry with tongue coated and shrunken. He is very warm to palpation clinically. No history could be obtained from the patient. He has a chronic indwelling Marshall catheter which is suspect to be the source of his current infection and early sepsis. Initial BP was 110/80. CODE STATUS is listed as DO NOT RESUSCITATE. Onset: Unknown/Unsure Duration: Hour(s): Location: Reports: Generalized Quality: Reports: Other (Fever) Severity: Severe Improves with: Reports: None Worsens with: Reports: None Context: Reports: Other (Immobile and for the most part bedridden or sitting in a wheelchair.). Denies: Activity, Exercise, Lifting, Sick Contact, Trauma Associated Symptoms: Reports: Loss of Appetite, Malaise. Denies: Cough, cough w sputum, Diaphoresis, Fever/Chills, Headaches, Nausea/Vomiting, Rash, Seizure, Shortness of Breath, Syncope Treatments BUTT PRESSER: Reports: Other (see below) (Unknown.) - Related Data Allergies Allergy/AdvReac Type Severity Reaction Status Date / Time No Known Allergies Allergy Verified 05/26/17 10:10 Home Meds: Home Meds Sennosides [Senna] 8.6 mg PO BEDTIME 10/17/15 [History] Bisacodyl [Dulcolax] 10 mg RECTAL Q3D 03/21/16 [History] Sennosides/Docusate Sodium [Senna-Docusate Sodium] 1 tab PO BID 03/21/16 [ History] Triamcinolone Acetonide [Triamcinolone Acetonide 0.5%] 1 applic TOP BID PRN [History] Lidocaine 5% 1 applic TOP BID 07/01/16 [History] rOPINIRole HCl [Requip] 10 mg PO 07/01/16 [History] rOPINIRole HCl [rOPINIRole] 5 mg PO DAILY@1500 02/07/17 [History] Bisacodyl [Dulcolax] 10 mg PO DAILY PRN 02/08/17 [History] Water 30 ml PEGTUBE BID 02/08/17 [History] Aquafor 1 applic TOP BID 05/26/17 [History] Baclofen 10 mg PO TID 05/26/17 [History] Benztropine [Cogentin] 0.5 mg PO 07 05/26/17 [History] Calcium Polycarbophil [Fibercon] 2 tab PO 17 05/26/17 [History] Carbidopa/Levodopa [Sinemet 25-100 mg] 1 tab PO TID 05/26/17 [History] Lactose-Reduced Food [Boost] 4 oz PO TID 05/26/17 [History] Lactose-Reduced Food/Fiber [Jevity 1.5 Garth Liquid] 100 mg PO BID 05/26/17 [ History] Lansoprazole [Prevacid] 30 mg PO DAILY 05/26/17 [History] Lubiprostone [Amitiza] 24 mcg PO 07 05/26/17 [History] Mupirocin Calcium [Bactroban] 1 applic TP DAILY PRN 05/26/17 [History] Arab Thick 125 ml PO BID 05/26/17 [History] Past Medical History HEENT History: Reports: Hard of Hearing, Impaired Vision Other HEENT History: Hearing aids Cardiovascular History: Reports: Bypass, High Cholesterol, Hypertension Other Cardiovascular History: 2002--- double bypass. Respiratory History: Reports: Pneumonia, Recurrent, Other (See Below) Other Respiratory History: aspiration d/t difficulty swallowing Gastrointestinal History: Reports: Chronic Constipation Genitourinary History: Reports: Neurogenic Bladder, Retention, Urinary Other Genitourinary History: chronic marshall Musculoskeletal History: Reports: Back Pain, Chronic, Osteoarthritis Neurological History: Reports: Parkinson's (Diagnosed 11 years ago and has been slowly progressive. Patient has trouble swallowing. He is essentially a phasic. His mind works enough to use AVC blocks on a board to communicate at times.), Other (See Below) Other Neuro History: progressive supranuclearpalsy Psychiatric History: Reports: Depression, Mood Swings Endocrine/Metabolic History: Reports: Other (See Below) Other Endocrine/Metabolic History: Graves Hematologic History: Reports: None Dermatologic History: Reports: Venous Stasis Dermatitis - Past Surgical History HEENT Surgical History: Reports: Tonsillectomy, Other (See Below) Cardiovascular Surgical History: Reports: Coronary Artery Bypass Social & Family History - Family History Family Medical History: Noncontributory - Tobacco Use Smoking Status *Q: Unknown Ever Smoked Years of Tobacco use: 20 Used Tobacco, but Quit: Yes Month Tobacco Last Used: 1986 Second Hand Smoke Exposure: No - Caffeine Use Caffeine Use: Reports: None - Recreational Drug Use Recreational Drug Use: No - Living Situation & Occupation Living situation: Reports: , Extended Care Facility Occupation: Disabled ED ROS GENERAL - Review of Systems Review Of Systems: Unable To Obtain (Patient is nonverbal and not able to obtain from the patient.) ED EXAM, SEPSIS - Physical Exam Exam: See Below Exam Limited By: Altered Mental Status (Patient is nonverbal and lies completely rigid on the bed. Mouth is a gape.) General Appearance: Other (Appears moribund.) Eye Exam: Bilateral Eye: Normal Inspection (No gaze palsy is evident.) Throat/Mouth: Other Head: Atraumatic (Food dried food product present in his mouth.), Normocephalic Neck: Normal Inspection. No: Full Range of Motion, Carotid Bruit, Lymphadenopathy (L), Lymphadenopathy (R), Thyromegaly Respiratory/Chest: Respiratory Distress (Mild tachypnea at rest 20/m.), Other ( Patient takes very shallow respirations and therefore no adventitial sounds could be appreciated no air in the posterior 50% of the lung dean due to shallow breathing.) Cardiovascular: Normal Peripheral Pulses, Regular Rate, Rhythm, No Edema, No Gallop, No Rub, Other (Well-healed midline sternotomy incision with bypass surgery in the past.) Peripheral Pulses: 1+: Posterior Tibial (L), Posterior Tibial (R), Dorsalis Pedis (L), Dorsalis Pedis (R) GI/Abdominal Exam: Normal Bowel Sounds, Soft, Non-Tender, No Organomegaly, No Distention, No Abnormal Bruit, No Mass, Pelvis Stable (Male) Exam: No Hernia Back: Decreased Range of Motion Extremities: Other (Patient has rigid extremities. He moans with attempted flexing at the elbows. He has evidence of flexion contractures at the ankles. He does keep his legs straight.) Neurological: Unresponsive, Other (No reflexes were apparent in any of his limbs.) Psychiatric: Normal Affect, Normal Mood Skin: Warm, Dry, Intact, Normal Color, No Rash EKG INTERPRETATION EKG Date: 05/26/17 Time: 10:50 Rhythm: NSR Rate (Beats/Min): 76 [place]: LAD-Left [place] Deviation (-65) P-Wave: Present QRS: Other (There are near Q waves V1 to V6 and 23 and aVF compatible with both an old large anteroseptal myocardial infarction and an old inferior wall myocardial infarction. There is a nonspecific intraventricular conduction delay across the left anterior fascicular block.) ST-T: Normal QT: Prolonged (Mildly prolonged.) EKG Interpretation Comments: Abnormal ECG. Course - Vital Signs Last Recorded V/S: Last Vital Signs Temp 36.6 C 05/26/17 10:09 Pulse 79 05/26/17 10:09 Resp 18 05/26/17 10:09 BP 121/85 05/26/17 10:09 Pulse Ox 95 05/26/17 10:45 - Orders/Labs/Meds Orders: Active Orders 24 hr Category Date Time Status EKG Documentation Completion [RC] STAT Care 05/26/17 10:31 Active Insert Marshall Catheter [Insert Urinary Catheter] [OM.PC] Care 05/26/17 10:45 Ordered Q24H Oxygen Therapy [RC] ASDIRECTED Care 05/26/17 10:41 Active Remove Marshall Catheter [Urinary Catheter Removal] [RC] Care 05/26/17 10:33 Active Per Unit Routine Urinary Catheter Assessment [RC] ASDIRECTED Care 05/26/17 10:34 Active CULTURE BLOOD [BC] Stat Lab 05/26/17 10:50 Received CULTURE BLOOD [BC] Stat Lab 05/26/17 11:05 Received CULTURE CATHETER TIP [RM] Stat Lab 05/26/17 10:35 Received CULTURE URINE [RM] Stat Lab 05/26/17 10:40 Received METH-RESIST S.AUR,MRSA BY PCR [MOLEC] Stat Lab 05/26/17 13:30 Received Dextrose 5%-0.9% NaCl [Dextrose 5%-Normal Saline] 1,000 Med 05/26/17 10:45 Active ml IV ASDIRECTED Dextrose 5%-0.9% NaCl [Dextrose 5%-Normal Saline] 1,000 Med 05/26/17 12:30 Active ml IV ASDIRECTED Blood Culture x2 Reflex Set [OM.PC] Stat Oth 05/26/17 10:32 Ordered Medication Orders Dextrose/Sodium Chloride (Dextrose 5%-Normal Saline) 1,000 mls @ 999 mls/hr IV ASDIRECTED MYAH Last Admin: 05/26/17 10:55 Dose: 999 mls/hr Dextrose/Sodium Chloride (Dextrose 5%-Normal Saline) 1,000 mls @ 100 mls/hr IV ASDIRECTED MYAH Last Admin: 05/26/17 12:32 Dose: 100 mls/hr Labs: Laboratory Tests 05/26/17 05/26/17 05/26/17 Range/Units 10:15 10:15 10:15 WBC 12.44 H (4.23-9.07) K/mm3 RBC 4.69 (4.63-6.08) M/mm3 Hgb 15.2 (13.7-17.5) gm/L Hct 46.3 (40.1-51.0) % MCV 98.7 H (79.0-92.2) fl MCH 32.4 H (25.7-32.2) pg MCHC 32.8 (32.2-35.5) g/dl RDW Std Deviation 46.6 H (35.1-43.9) fL Plt Count 207 (163-337) K/mm3 MPV 11.0 (9.4-12.3) fl Neutrophils % (Manual) 58 (40-60) % Band Neutrophils % 0 (0-10) % Lymphocytes % (Manual) 32 (20-40) % Atypical Lymphs % 0 % Monocytes % (Manual) 7 (2-10) % Eosinophils % (Manual) 3 (0.8-7.0) % Basophils % (Manual) 0 L (0.2-1.2) Platelet Estimate Adequate RBC Morph Comment Normal PT 12.1 (8.0-13.0) SECONDS INR 1.10 Puncture Site ABG pH (7.35-7.45) ABG pCO2 (35.0-45.0) mmHg ABG pO2 (80.0-100.0) mmHg ABG HCO3 (22.0-26.0) meq/L ABG O2 Saturation (96.0-97.0) % ABG Base Excess (-2-2.0) Marcelino Test O2 Delivery Device FiO2 (21.00-100.00) % Sodium 145 (136-145) mEq/L Potassium 4.0 (3.5-5.1) mEq/L Chloride 109 H (98-107) mEq/L Carbon Dioxide 24 (21-32) mEq/L Anion Gap 16.0 H (5-15) BUN 30 H (7-18) mg/dL Creatinine 1.3 (0.7-1.3) mg/dL Est Cr Clr Drug Dosing 58.03 mL/min Estimated GFR (MDRD) 55 (>60) mL/min BUN/Creatinine Ratio 23.1 H (14-18) Glucose 101 (80-115) mg/dL Lactic Acid (0.4-2.0) mmol/L Calcium 9.0 (8.5-10.1) mg/dL Total Bilirubin 4.5 H (0.2-1.0) mg/dL AST 39 H (15-37) U/L ALT 13 L (16-63) U/L Alkaline Phosphatase 104 (46-116) U/L CK-MB (CK-2) 3.6 (0-3.6) ng/ml Troponin I 0.017 (0.00-0.056) ng/mL C-Reactive Protein < 0.2 (<1.0) mg/dL NT-Pro-B Natriuret Pep 467 H (0-125) pg/mL Total Protein 7.5 (6.4-8.2) g/dl Albumin 3.7 (3.4-5.0) g/dl Globulin 3.8 gm/dL Albumin/Globulin Ratio 1.0 (1-2) Urine Color (Yellow) Urine Appearance (Clear) Urine pH (5.0-8.0) Ur Specific Kirk (1.005-1.030) Urine Protein (Negative) Urine Glucose (UA) (Negative) Urine Ketones (Negative) Urine Occult Blood (Negative) Urine Nitrite (Negative) Urine Bilirubin (Negative) Urine Urobilinogen (0.2-1.0) Ur Leukocyte Esterase (Negative) Urine RBC (0-5) /hpf Urine WBC (0-5) /hpf Ur Epithelial Cells (0-5) /hpf Urine Bacteria (FEW) /hpf Urine Mucus (FEW) /hpf 11/30/17 11/30/17 11/30/17 Range/Units 10:40 10:44 10:50 WBC (4.23-9.07) K/mm3 RBC (4.63-6.08) M/mm3 Hgb (13.7-17.5) gm/L Hct (40.1-51.0) % MCV (79.0-92.2) fl MCH (25.7-32.2) pg MCHC (32.2-35.5) g/dl RDW Std Deviation (35.1-43.9) fL Plt Count (163-337) K/mm3 MPV (9.4-12.3) fl Neutrophils % (Manual) (40-60) % Band Neutrophils % (0-10) % Lymphocytes % (Manual) (20-40) % Atypical Lymphs % % Monocytes % (Manual) (2-10) % Eosinophils % (Manual) (0.8-7.0) % Basophils % (Manual) (0.2-1.2) Platelet Estimate RBC Morph Comment PT (8.0-13.0) SECONDS INR Puncture Site Rt radial ABG pH 7.43 (7.35-7.45) ABG pCO2 34.1 L (35.0-45.0) mmHg ABG pO2 73.0 L (80.0-100.0) mmHg ABG HCO3 22.1 (22.0-26.0) meq/L ABG O2 Saturation 93.8 L (96.0-97.0) % ABG Base Excess -1.1 (-2-2.0) Marcelino Test Positive O2 Delivery Device Room air FiO2 0.00 L (21.00-100.00) % Sodium (136-145) mEq/L Potassium (3.5-5.1) mEq/L Chloride (98-107) mEq/L Carbon Dioxide (21-32) mEq/L Anion Gap (5-15) BUN (7-18) mg/dL Creatinine (0.7-1.3) mg/dL Est Cr Clr Drug Dosing mL/min Estimated GFR (MDRD) (>60) mL/min BUN/Creatinine Ratio (14-18) Glucose (80-115) mg/dL Lactic Acid 1.0 (0.4-2.0) mmol/L Calcium (8.5-10.1) mg/dL Total Bilirubin (0.2-1.0) mg/dL AST (15-37) U/L ALT (16-63) U/L Alkaline Phosphatase (46-116) U/L CK-MB (CK-2) (0-3.6) ng/ml Troponin I (0.00-0.056) ng/mL C-Reactive Protein (<1.0) mg/dL NT-Pro-B Natriuret Pep (0-125) pg/mL Total Protein (6.4-8.2) g/dl Albumin (3.4-5.0) g/dl Globulin gm/dL Albumin/Globulin Ratio (1-2) Urine Color [place] H (Yellow) Urine Appearance Slt cloudy H (Clear) Urine pH 5.5 (5.0-8.0) Ur Specific Kirk 1.025 (1.005-1.030) Urine Protein 2+ H (Negative) Urine Glucose (UA) Negative (Negative) Urine Ketones 1+ H (Negative) Urine Occult Blood Trace-intact H (Negative) Urine Nitrite Negative (Negative) Urine Bilirubin 1+ H (Negative) Urine Urobilinogen 1.0 (0.2-1.0) Ur Leukocyte Esterase Trace H (Negative) Urine RBC 0-5 (0-5) /hpf Urine WBC 20-30 H (0-5) /hpf Ur Epithelial Cells 0-5 (0-5) /hpf Urine Bacteria Few (FEW) /hpf Urine Mucus Few (FEW) /hpf Meds: Medications Generic Name Dose Route Start Last Admin Trade Name Freq PRN Reason Stop Dose Admin Dextrose/Sodium Chloride 1,000 mls @ 999 mls/hr 05/26/17 10:45 05/26/17 10:55 Dextrose 5%-Normal Saline IV 999 mls/hr ASDIRECTED MYAH Administration Dextrose/Sodium Chloride 1,000 mls @ 100 mls/hr 05/26/17 12:30 05/26/17 12:32 Dextrose 5%-Normal Saline IV 100 mls/hr ASDIRECTED MYAH Administration Discontinued Medications Generic Name Dose Route Start Last Admin Trade Name Freq PRN Reason Stop Dose Admin Acetaminophen 650 mg 05/26/17 10:38 05/26/17 10:56 Tylenol RECTAL 05/26/17 10:39 650 mg NOW ONE Administration Baclofen 10 mg 05/26/17 13:19 05/26/17 13:35 Lioresal PO 05/26/17 13:20 10 mg ONETIME ONE Administration Benztropine Mesylate 1 mg 05/26/17 13:19 05/26/17 13:36 Cogentin PO 05/26/17 13:20 1 mg ONETIME ONE Administration Carbidopa/Levodopa 1 tab 05/26/17 13:19 05/26/17 13:36 Sinemet 25-100 Mg PO 05/26/17 13:20 1 tab ONETIME ONE Administration Hydromorphone HCl 0.5 mg 05/26/17 12:09 05/26/17 12:17 Dilaudid IVPUSH 05/26/17 12:10 0.5 mg ONETIME ONE Administration Levofloxacin/Dextrose 750 mg/ 150 mls @ 100 mls/hr 05/26/17 10:47 05/26/17 11 :07 Premix IV 05/26/17 12:16 100 mls/hr ONETIME ONE Administration Ondansetron HCl 4 mg 05/26/17 12:09 05/26/17 12:16 Zofran IVPUSH 05/26/17 12:10 4 mg ONETIME ONE Administration Ropinirole HCl 10 mg 05/26/17 13:20 05/26/17 13:56 Requip PO 05/26/17 13:21 Not Given ONETIME ONE Ropinirole HCl 10 mg 05/26/17 14:00 Ropinirole Hcl PO 05/26/17 14:01 ONETIME ONE Ropinirole HCl 10 mg 05/26/17 14:00 05/26/17 14:03 Requip PO 05/26/17 14:01 10 mg ONETIME ONE Administration Ropinirole HCl 10 mg 05/26/17 13:55 Requip PO 05/26/17 13:56 ONETIME STA - Radiology Interpretation Free Text/Narrative:: 71-year-old male presents to the ED with a febrile illness of unknown duration. He arrives per wheelchair from [facility]. He is nonverbal and unresponsive on examination. He is definitely febrile to examination. He has a chronic indwelling Marshall catheter presumably due to neurogenic bladder and this most likely is the source of his current infection. Plan for the catheter to be removed and a new Marshall will be placed with a sample to be obtained after this. The tip of the old catheter is to be sent for culture. A chest x-ray will be performed portably. Routine lab work including blood cultures 2 lactic acid to be done. ABGs will also be done as he is hypoxic on room air at 93%. Placed on O2 at 2 L/m by nasal cannula. Plan will be to start IV antibiotics immediately after cultures 2 have been collected. Note CODE STATUS is DO NOT RESUSCITATE. - Re-Assessments/Exams Free Text/Narrative Re-Assessment/Exam: 05/26/17 11:54Labs reveal a white count of 12.44 with a 50% neutrophil and no bands reported on the differential. Hemoglobin is 15.2 with hematocrit of 46.3. MCV is mildly elevated at 98.7. Platelets are normal at 207,000. PT is 12.1 with an INR 1.10 ABGs revealed a pH of 7.43 with a PCO2 of 34.1. PO2 was 73.0 bicarbonate was 22. This was done on room air. O2 sats are 94%.Sodium is 145 .Potassium 4.0. chloride 109. bicarbonate 24. Anion gap slightly elevated at 16.0 . BUN is 30. Creatinine is 1.3 with an EGFR 55. Glucose 101. Calcium normal at 9.0 total bilirubin is markedly elevated at 4.5. AST is 39 ELT of 13 alkaline phosphatase 104. 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 Cardiac markers are normal. BNP is mildly elevated at 467. Urinalysis is pending. Chest x-ray reveals poor inspirational view with diffuse vascular congestion. Is a portable film and he is rotated substantially to the right making his thoracic aorta very tortuous and prominent. ECG revealed sinus rhythm at 76/m with near Q waves V1 to be 6 component with an old large anteroseptal myocardial infarction or also near Q waves II, III, and F aVF compatible with an old inferior wall myocardial infarction. There is a nonspecific interventricular conduction delay with a left axis deviation of -65. Suspect left anterior fascicular block. No QT QTc mildly prolonged. No signs of acute ischemia. 05/26/17 12:08 patient appears to be having some degree of discomfort either from Marshall catheter or unknown source. Will give him Dilaudid 0.5 mg IV and Zofran 4 mg IV at this time blood pressure is 130/76 with a heart rate of 82/m. urinalysis has not yet returned. Chest x-ray reveals moderate cardiomegaly. He is rotated slightly to the right making his right perihilar area more prominent than normal. No definitive infiltrates are evident in the lungs. 05/26/17 12:32 Urinalysis is now back. It shows 2+ protein 1+ ketones negative nitrates 1+ bilirubin trace of leukocyte esterase but 20-30 WBCs per high-power field. Urine culture had been ordered prior. The urinary tract is the most likely source for development of febrile illness. Patient will be tentatively be admitted to the hospital until blood cultures become available and he becomes afebrile. Patient will be required admission to the hospital until it is determined what is making him sick. Urine cultures and blood cultures are pending. Patient DISCUSSED with case management to determine that he is a candidate for admission. 05/26/17 13:[address] Martínez control valve mechanic hospitalist and she will see the patient in the ED. Of note I just checked his blood pressure again and it came up to 1 [id number] it appeared that 93 systolic was fictitious. He has a family relative here who is able to settle on a light on his history. His had Parkinson 's disease for 11 years and has progressed to supranuclear palsy. He cannot speak i.e. ask like he's a phasic. His mind still works fairly well and at times he can use ABC blocks to spell a word. He takes all of his medications with crushed in Alex or yogurt etc. He is on a thickened nectar diet as he chokes very easily. He has not had any medication since last night. I will give him his Cogentin 1 mg now with Sinemet 100/25 mg tablet now and quit 10 mg by mouth now. 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 Urinary tract infection associated with indwelling urethral catheter Qualifiers: Encounter type: initial encounter Qualified Code(s): T83.511A - Infection and inflammatory reaction due to indwelling urethral catheter, initial encounter; N39.0 - Urinary tract infection, site not specified; N39.0 - Urinary tract infection, site not specified - Discharge Information - My Orders Last 24 Hours: My Active Orders 05/26/17 10:31 EKG Documentation Completion [RC] STAT 05/26/17 10:32 Blood Culture x2 Reflex Set [OM.PC] Stat 05/26/17 10:33 Remove Marshall Catheter [Urinary Catheter Removal] [RC] Per Unit Routine 05/26/17 10:34 Urinary Catheter Assessment [RC] ASDIRECTED 05/26/17 10:35 CULTURE CATHETER TIP [RM] Stat 05/26/17 10:40 CULTURE URINE [RM] Stat 05/26/17 10:41 Oxygen Therapy [RC] ASDIRECTED 05/26/17 10:45 Insert Marshall Catheter [Insert Urinary Catheter] [OM.PC] Q24H Dextrose 5%-0.9% NaCl [Dextrose 5%-Normal Saline] 1,000 ml IV ASDIRECTED 05/26/17 10:50 CULTURE BLOOD [BC] Stat 05/26/17 11:05 CULTURE BLOOD [BC] Stat 05/26/17 12:30 Dextrose 5%-0.9% NaCl [Dextrose 5%-Normal Saline] 1,000 ml IV ASDIRECTED - Assessment/Plan Last 24 Hours: My Active Orders 05/26/17 10:31 EKG Documentation Completion [RC] STAT 05/26/17 10:32 Blood Culture x2 Reflex Set [OM.PC] Stat 05/26/17 10:33 Remove Marshall Catheter [Urinary Catheter Removal] [RC] Per Unit Routine 05/26/17 10:34 Urinary Catheter Assessment [RC] ASDIRECTED 05/26/17 10:35 CULTURE CATHETER TIP [RM] Stat 05/26/17 10:40 CULTURE URINE [RM] Stat 05/26/17 10:41 Oxygen Therapy [RC] ASDIRECTED 05/26/17 10:45 Insert Marshall Catheter [Insert Urinary Catheter] [OM.PC] Q24H Dextrose 5%-0.9% NaCl [Dextrose 5%-Normal Saline] 1,000 ml IV ASDIRECTED 05/26/17 10:50 CULTURE BLOOD [BC] Stat 05/26/17 11:05 CULTURE BLOOD [BC] Stat 05/26/17 12:30 Dextrose 5%-0.9% NaCl [Dextrose 5%-Normal Saline] 1,000 ml IV ASDIRECTED
[2017-05-26] MEDS ORDERED: Acetaminophen 650 MG Supp RECTAL ONE (10:38)
[2017-05-26] MEDS ORDERED: Dextrose 5%-0.9% NaCl 1,000 ML IV SCH ×2 (10:45→12:30)
[2017-05-26] MEDS ORDERED: Levofloxacin/Dextrose 5%-Water 750 MG in Premix Bag 1 BAG IV ONE (10:47)
--- NOTE | 2017-05-26 12:00 | CR ---
Chest: Frontal view of the chest was obtained. Comparison: Prior chest x-ray of 02/07/17. Minimal scarring off the left cardiac apex is seen. Nodular density within the right lung base remains stable and likely due to vessel on end. Lungs otherwise are clear. Heart size and mediastinum are normal. Previous sternotomy is noted. Impression: 1. Incidental findings. Nothing acute is seen on frontal chest x-ray. Diagnostic code #2
[2017-05-26] MEDS ORDERED: Ondansetron 4 MG/2 ML SDV IVPUSH ONE (12:09)
[2017-05-26] MEDS ORDERED: HYDROmorphone 0.5 MG/0.5 ML Syringe IVPUSH ONE (12:09)
[2017-05-26] MEDS ORDERED: Benztropine 1 MG Tab PO ONE (13:19)
[2017-05-26] MEDS ORDERED: Baclofen 10 MG Tab PO ONE (13:19)
[2017-05-26] MEDS ORDERED: Carbidopa/Levodopa 25-100 MG Tab PO ONE (13:19)
[2017-05-26] MEDS ORDERED: rOPINIRole 0.25 MG Tab PO ONE (13:20)
[2017-05-26] MEDS ORDERED: rOPINIRole 1 MG Tab PO STA (13:55)
[2017-05-26] MEDS ORDERED: rOPINIRole 1 MG Tab PO ONE ×2 (14:00→21:00)
--- NOTE | 2017-05-26 18:24 | PCM.HP ---
H&P History of Present Illness - General Date of Service: 05/26/17 Admit Problem/Dx: Admission Diagnosis/Problem Admission Diagnosis/Problem Fever Kameron is a 71yo male, resident at [facility] brought into ED via ambulance for fever. Onset of illness is unknown. 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 He is resting comfortably at time of my visit/exam. Information is obtained from [facility] records and ED reports. ED evaluation shows slight elevation of WBC at 12.44, H&H WNL,macrocytosis with MCV of 98.7 and MCH of 32.4 (this has been chronic by chart review), plt 121. PT 12.1, INR 1.10, CMP with cl- of 109, AG 16.0, BUN 30, creat 1.3, GFR 55, AST 39, ALT 13, Total bili 4.5, all other indicies on CMP are normal, troponin negative. ABG with PH of 7.43, pCO2 34.1, pO2 73.0, HCo3 22.1, BE 1.1. Unremarkable CXR for acute findings. UA is positive with orange color, SG 1.025 , 2+ protein, 1+ ketones, trace blood, 1+ bili, trace leuks and 20-30 WBC's. Urine collection is obtained after new marshall catheter inserted. Tip of old marshall is also sent to lab for culture in ED. Chart review shows that last admission in January of this year patient had UTI with 4 organisms growing- Citrobacter Freundii, Staph Aureus, Pseudomonas Aeruginosa and Enterococcus Fecalis- first 3 organisms were sensitive to Levaquin, last sensitive to Vancomycin. He does have hx of MRSA infection in the past. PMH is significant for PSNP/PD, HTN, HLD, CAD, recurrent pneumonia/aspiration pneumonia, neurogenic bladder with chronic retention and marshall catheter, aphagia /aphasia, depression, graves disease, venous stasis dermatitis. Hospitalist service is consulted for admission for Fever, likely AUTI and early sepsis. Patient is DNR/DNI code status. PCP is Dr. Malagon with [facility] in [place] Source of Information: Old Records, Other (ED notes) History Limitations: Reports: Physical Impairment, Other (Aphasia due to progressive SNP) - History of Present Illness Onset of Symptoms: Reports: Unknown/Unsure Associated Symptoms: Reports: Diaphoresis, Fever/Chills - Related Data Allergies/Adverse Reactions: Allergies Allergy/AdvReac Type Severity Reaction Status Date / Time No Known Allergies Allergy Verified 05/26/17 10:10 Home Medications: Home Meds Sennosides [Senna] 8.6 mg PO BEDTIME 10/17/15 [History] Bisacodyl [Dulcolax] 10 mg RECTAL Q3D 03/21/16 [History] Sennosides/Docusate Sodium [Senna-Docusate Sodium] 1 tab PO BID 03/21/16 [ History] Triamcinolone Acetonide [Triamcinolone Acetonide 0.5%] 1 applic TOP BID PRN [History] rOPINIRole HCl [Requip] 10 mg PO 07/01/16 [History] rOPINIRole HCl [rOPINIRole] 5 mg PO DAILY@1500 02/07/17 [History] Bisacodyl [Dulcolax] 10 mg PO DAILY PRN 02/08/17 [History] Baclofen 10 mg PO TID 05/26/17 [History] Benztropine [Cogentin] 0.5 mg PO 07 05/26/17 [History] Calcium Polycarbophil [Fibercon] 2 tab PO 17 05/26/17 [History] Carbidopa/Levodopa [Sinemet 25-100 mg] 1 tab PO TID 05/26/17 [History] Lactose-Reduced Food/Fiber [Jevity 1.5 Garth Liquid] 100 mg PO BID 05/26/17 [ History] Lansoprazole [Prevacid] 30 mg PO DAILY 05/26/17 [History] Lubiprostone [Amitiza] 24 mcg PO 07 05/26/17 [History] Past Medical History HEENT History: Reports: Hard of Hearing, Impaired Vision Other HEENT History: Hearing aids Cardiovascular History: Reports: Bypass, High Cholesterol, Hypertension Other Cardiovascular History: 2002--- double bypass. Respiratory History: Reports: Pneumonia, Recurrent, Other (See Below) Other Respiratory History: aspiration d/t difficulty swallowing Gastrointestinal History: Reports: Chronic Constipation, GERD Genitourinary History: Reports: Neurogenic Bladder, Retention, Urinary Other Genitourinary History: chronic marshall Musculoskeletal History: Reports: Back Pain, Chronic, Osteoarthritis Neurological History: Reports: Parkinson's, Other (See Below) Other Neuro History: progressive supranuclearpalsy Psychiatric History: Reports: Depression, Mood Swings Endocrine/Metabolic History: Reports: Other (See Below) Other Endocrine/Metabolic History: Graves Hematologic History: Reports: None Dermatologic History: Reports: Venous Stasis Dermatitis Other Dermatologic History: guttate psoriasis - Infectious Disease History Infectious Disease History: Reports: MRSA - Past Surgical History HEENT Surgical History: Reports: Tonsillectomy, Other (See Below) Cardiovascular Surgical History: Reports: Coronary Artery Bypass Respiratory Surgical History: Reports: None GI Surgical History: Reports: None Male Surgical History: Reports: None Endocrine Surgical History: Reports: None Neurological Surgical History: Reports: None Musculoskeletal Surgical History: Reports: None Dermatological Surgical History: Reports: None Social & Family History - Family History Family Medical History: Noncontributory - Tobacco Use Smoking Status *Q: Never Smoker Years of Tobacco use: 20 Used Tobacco, but Quit: Yes Month Tobacco Last Used: 1986 Second Hand Smoke Exposure: No - Caffeine Use Caffeine Use: Reports: None - Recreational Drug Use Recreational Drug Use: No - Living Situation & Occupation Living situation: Reports: , Extended Care Facility Occupation: Disabled H&P Review of Systems - Review of Systems: Review Of Systems: Unable To Obtain (as patient is with aphasia and unable to communicate) Exam - Exam Exam: See Below - Vital Signs Vital Signs: Last Vital Signs Temp 100.0 F 05/26/17 15:18 Pulse 78 05/26/17 15:30 Resp 20 05/26/17 15:30 BP 108/65 05/26/17 15:30 Pulse Ox 95 05/26/17 15:30 Weight: 188 lb 6.4 oz - Exam Quality Assessment: Supplemental Oxygen, Urinary Catheter, DVT Prophylaxis General: Other (NAD) HEENT: Conjunctiva Clear, Pupils Equal. No: Mucosa Moist & [place] (dry) Lungs: Normal Respiratory Effort, Decreased Breath Sounds (throughout). No: Crackles, Rales, Rhonchi, Wheezing Cardiovascular: Regular Rate, Regular Rhythm GI/Abdominal Exam: Normal Bowel Sounds, Soft, Non-Tender (appears nontender as no wincing or other facial expressions or obvious discomfort) (Male) Exam: Deferred Rectal (Males) Exam: Deferred Extremities: Normal Inspection, No Pedal Edema, Normal Capillary Refill Peripheral Pulses: 2+: Dorsalis Pedis (L), Dorsalis Pedis (R) Skin: Warm, Dry, Intact Neurological: Other (slight contractures to hands and legs). No: Normal Speech (aphasic) Neuro Extensive - Mental Status: Other (unable to obtain orientation status as patient unable to communicate) Neuro Extensive - Motor, Sensory, Reflexes: Other (masked faces, no expressions) - Patient Data Result Diagrams: 05/26/17 10:15 05/26/17 10:15 EKG INTERPRETATION EKG Date: 05/26/17 (obtained in ED) Rhythm: NSR Rate (Beats/Min): 76 [place]: LAD-Left [place] Deviation *Q Meaningful Use (ADM) - VTE *Q VTE Criteria *Q: - Stroke *Q Stroke Criteria *Q: - AMI *Q AMI Criteria *Q: - Problem List (1) Urinary tract infection associated with indwelling urethral catheter SNOMED Code(s): 56516926 ICD Code: T83.511A - I/I REACT D/T INDWELLING URETHRAL CATHETER, INIT; N39.0 - URINARY TRACT INFECTION, SITE NOT SPECIFIED Status: Acute Priority: High Current Visit: Yes Qualifiers: Encounter type: initial encounter Qualified Code(s): T83.511A - Infection and inflammatory reaction due to indwelling urethral catheter, initial encounter ; N39.0 - Urinary tract infection, site not specified; N39.0 - Urinary tract infection, site not specified (2) Acute febrile illness SNOMED Code(s): 166454752 ICD Code: R50.9 - FEVER, UNSPECIFIED Status: Acute Priority: High Current Visit: Yes (3) Progressive supranuclear palsy SNOMED Code(s): 35837202 ICD Code: G23.1 - PROGRESSIVE SUPRANUCLEAR OPHTHALMOPLEGIA Status: Chronic Priority: Medium Current Visit: Yes (4) 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 SNOMED Code(s): 89510336 ICD Code: R47.01 - APHASIA Status: Chronic Priority: Medium Current Visit: Yes (5) Renal insufficiency SNOMED Code(s): 022075382 ICD Code: N28.9 - DISORDER OF KIDNEY AND URETER, UNSPECIFIED Status: Chronic Priority: Medium Current Visit: Yes (6) Hypertension SNOMED Code(s): 39119925 ICD Code: I10 - ESSENTIAL (PRIMARY) HYPERTENSION Status: Chronic Priority : Low Current Visit: Yes Qualifiers: Hypertension type: essential hypertension Qualified Code(s): I10 - Essential (primary) hypertension (7) Hyperlipidemia SNOMED Code(s): 19288547 ICD Code: E78.5 - HYPERLIPIDEMIA, UNSPECIFIED Status: Chronic Priority: Low Current Visit: No Qualifiers: Hyperlipidemia type: unspecified Qualified Code(s): E78.5 - Hyperlipidemia , unspecified Problem List Initiated/Reviewed/Updated: Yes Orders Last 24hrs: Active Orders 24 hr Category Date Time Status Resuscitation Status Routine Resus Stat 05/26/17 15:47 Ordered Medication Orders Dextrose/Sodium Chloride (Dextrose 5%-Normal Saline) 1,000 mls @ 999 mls/hr IV ASD[facility]RECTED [facility] Last Admin: 05/26/17 10:55 Dose: 999 mls/hr Dextrose/Sodium Chloride (Dextrose 5%-Normal Saline) 1,000 mls @ 100 mls/hr IV ASDIRECTED [facility] Last Admin: 05/26/17 12:32 Dose: 100 mls/hr Assessment/Plan Comment:: I/P: AUTI with fever -Risk factors: chronic indwelling marshall catheter, hx urinary outflow obstruction, neurogenic bladder, immobility, neurologic disease (progressive supranuclear palsy), 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) -Levaquin rec'd in ED- will cont levaquin pending C&S -Prior UC in 01/2017 was with 4 organisms -Citerobacter Freundii, Staph Aureus, Pseudomonas and Enteroccus- 3/4 were sensitive to levaquin -IV hydration -Antipyretics PRN -Marshall cath changed in ED; UA obtained from new cath; tip from old cath sent to lab for culture Sepsis risk -VSS at this time -Lactic acid 1.0 -Fluids and close monitoring Chronic conditions: PSNP- with aphasia and aphagia with PEG tube in place -Continue with mechanical soft diet with thickened liquids -Cont with Jevity - home dose and free water Neurogenic bladder (due to above) with chronic indwelling marshall catheter HTN- stable HLD CAD Depression Hx graves disease Hx venous stasis dermatitis Other: GI prophylax DVT prophylax PT/OT RT CM/SW for assist with DC planning - expect likely 72-96 hours of treatment needed, plan DC back to [facility]. Patient is DNR/DNI code status. PCP is Dr. Malagon with [facility] in [place].
[2017-05-26] MEDS ORDERED: Bisacodyl 5 MG Tab PO PRN (20:00)
[2017-05-26] MEDS ORDERED: Bisacodyl 10 MG Supp RECTAL SCH (20:00)
[2017-05-26] MEDS ORDERED: Ondansetron 4 MG/2 ML SDV IV PRN (20:08)
[2017-05-26] MEDS ORDERED: Ondansetron 4 MG Tab.DIS PO PRN (20:08)
[2017-05-26] MEDS ORDERED: FIBER PO SCH (21:00)
[2017-05-26] MEDS ORDERED: Carbidopa/Levodopa 25-100 MG Tab PO SCH (21:00)
[2017-05-26] MEDS ORDERED: Baclofen 10 MG Tab PO SCH (21:00)
[2017-05-26] MEDS ORDERED: LACTOSE REDUCED FOOD PO SCH (21:00)
[2017-05-26] MEDS ORDERED: [UNRECOGNIZED DRUG - OTHER] PO SCH (21:00)
[2017-05-26] MEDS ORDERED: Sennosides 8.6 MG Tab PO SCH (21:00)
[2017-05-26] MEDS ORDERED: Bisacodyl 10 MG Supp RECTAL PRN (21:46)
[2017-05-26] MEDS: Sodium Chloride 0.9% 1,000 ML IV SCH (22:18)
[2017-05-26] MEDS: Acetaminophen/HYDROcodone 325-5 MG Tab PO PRN (23:38)
[2017-05-27] MEDS: Acetaminophen/HYDROcodone 325-5 MG Tab PO PRN (03:43)
[2017-05-27] MEDS: Sodium Chloride 0.9% 1,000 ML IV SCH ×2 (06:29→15:36)
[2017-05-27] MEDS ORDERED: Benztropine 1 MG Tab PO SCH (07:00)
[2017-05-27] MEDS: Pantoprazole 40 MG Tab.CR PO SCH (07:54)
[2017-05-27] MEDS: Lubiprostone 24 MCG Cap PO SCH (07:56)
[2017-05-27] MEDS ORDERED: tiZANidine 4 MG Tab PO STA (08:27)
[2017-05-27] MEDS: Enoxaparin 40 MG/0.4 ML Syringe SUBCUT SCH (08:50)
[2017-05-27] MEDS: Benztropine 1 MG Tab PO SCH (08:50)
[2017-05-27] MEDS: Carbidopa/Levodopa 25-100 MG Tab PO SCH ×3 (08:51→17:57)
[2017-05-27] MEDS ORDERED: Non-Formulary Medication 1 Each (Lansoprazole [Prevacid] 30 MG) PO SCH (09:00)
--- NOTE | 2017-05-27 11:44 | PCM.PN ---
- General Info Date of Service: 05/27/17 Admission Dx/Problem (Free Text): Admission Diagnosis/Problem Admission Diagnosis/Problem Fever Kameron is seen this morning. He does not open his eyes for me or respond. He did open eyes for nursing prior to my exam. He is very rigid. Does not appear to be in discomfort but ROS is unobtainable as he is not responding at present time. He had temp overnight; Tmax was 101.7, otherwise VSS. Labs are improved this morning. Will add hepatic panel to follow elevated bilirubin, skin is jaundiced today specifically to face and chest region. Per Dietitian he had recently been seeing [employer] again and they had deemed him NPO as of 1-2 days ago; will place patient on NPO status until [employer] eval here. Discussed jevity feedings with Dietitian today. Functional Status: Reports: Urinating (marshall cath draining dark yellow urine). Denies: Tolerating Diet, Ambulating - Review of Systems General: Reports: Fever (overnight) Systems Review Comment:: ROS unable to be obtained as patient does not open eyes or respond to me this morning. He appears to be resting comfortably but is rigid. - Patient Data Vitals - Most Recent: Last Vital Signs Temp 99.1 F 05/27/17 08:17 Pulse 77 05/27/17 08:17 Resp 24 H 05/27/17 08:17 BP 102/87 05/27/17 08:46 Pulse Ox 97 05/27/17 08:17 Weight - Most Recent: 189 lb I&O - Last 24 Hours: Intake & Output 05/26/17 05/27/17 05/27/17 22:59 06:59 14:59 Intake Total 0 Output Total 250 500 Balance -250 -500 Lab Results Last 24 Hours: Laboratory Results - last 24 hr 05/27/17 05/27/17 Range/Units 05:55 05:55 WBC 7.87 (4.23-9.07) K/mm3 RBC 4.14 L (4.63-6.08) M/mm3 Hgb 13.4 L (13.7-17.5) gm/L Hct 42.0 (40.1-51.0) % MCV 101.4 H (79.0-92.2) fl MCH 32.4 H (25.7-32.2) pg MCHC 31.9 L (32.2-35.5) g/dl RDW Std Deviation 47.2 H (35.1-43.9) fL Plt Count 146 L (163-337) K/mm3 MPV 11.1 (9.4-12.3) fl Neut % (Auto) 69.9 H (34.0-67.9) % Lymph % (Auto) 20.3 L (21.8-53.1) % Blount % (Auto) 8.8 (5.3-12.2) % Eos % (Auto) 0.4 L (0.8-7.0) Baso % (Auto) 0.3 (0.1-1.2) % Neut # (Auto) 5.51 H (1.78-5.38) K/mm3 Lymph # (Auto) 1.60 (1.32-3.57) K/mm3 Blount # (Auto) 0.69 (0.30-0.82) K/mm3 Eos # (Auto) 0.03 L (0.04-0.54) K/mm3 Baso # (Auto) 0.02 (0.01-0.08) K/mm3 Sodium 146 H (136-145) mEq/L Potassium 4.0 (3.5-5.1) mEq/L Chloride 112 H (98-107) mEq/L Carbon Dioxide 24 (21-32) mEq/L Anion Gap 14.0 (5-15) BUN 25 H (7-18) mg/dL Creatinine 1.1 (0.7-1.3) mg/dL Est Cr Clr Drug Dosing 68.59 mL/min Estimated GFR (MDRD) > 60 (>60) mL/min BUN/Creatinine Ratio 22.7 H (14-18) Glucose 91 (80-115) mg/dL Calcium 8.3 L (8.5-10.1) mg/dL Magnesium 1.9 (1.8-2.4) mg/dl C-Reactive Protein < 0.2 (<1.0) mg/dL Med Orders - Current: Current Medications Acetaminophen (Tylenol) 650 mg RECTAL Q4H PRN PRN Reason: Pain (mild 1-3) Acetaminophen (Tylenol) 650 mg PO Q4H PRN PRN Reason: Pain (Mild 1-3)/fever Hydrocodone Bitart/Acetaminophen ([place] 325-5 Mg) 1 tab PO Q4H PRN PRN Reason: Pain (moderate 4-6) Last Admin: 05/27/17 03:43 Dose: 1 tab Albuterol/Ipratropium (Duoneb 3.0-0.5 Mg/3 Ml) 3 ml NEB Q4H PRN PRN Reason: Shortness Of Breath/wheezing Benztropine Mesylate (Cogentin) 1 mg PO DAILY [facility] Last Admin: 05/27/17 08:50 Dose: 1 mg Bisacodyl (Dulcolax) 10 mg RECTAL Q3D PRN PRN Reason: Constipation Calcium Polycarbophil (Fibercon) 1,250 mg PO DAILY@1700 [facility] Carbidopa/Levodopa (Sinemet 25-100 Mg) 1 tab PO QID [facility] Last Admin: 05/27/17 08:51 Dose: 1 tab Enoxaparin Sodium (Lovenox) 40 mg SUBCUT DAILY [facility] Last Admin: 05/27/17 08:50 Dose: 40 mg Hydromorphone HCl (Dilaudid) 0.25 mg IVPUSH Q2H PRN PRN Reason: Pain (severe 7-10) Sodium Chloride (Normal Saline) 1,000 mls @ 125 mls/hr IV ASDIRECTED [facility] Last Admin: 05/27/17 06:29 Dose: 125 mls/hr Levofloxacin/Dextrose 750 mg/ (Premix) 150 mls @ 100 mls/hr IV Q24H [facility] Lubiprostone (Amitiza) 24 mcg PO DAILY@0700 [facility] Last Admin: 05/27/17 07:56 Dose: Not Given Ondansetron HCl (Zofran Odt) 4 mg PO Q4H PRN PRN Reason: nausea, able to take PO Ondansetron HCl (Zofran) 4 mg IV Q4H PRN PRN Reason: Nausea/Vomiting Pantoprazole Sodium (Protonix) 40 mg PO DAILY@0700 [facility] Last Admin: 05/27/17 07:54 Dose: Not Given Ropinirole HCl (Ropinirole Hcl) 5 mg PO DAILY@1500 [facility] Ropinirole HCl (Ropinirole Hcl) 10 mg PO BID [facility] Last Admin: 05/27/17 08:50 Dose: 10 mg Senna/Docusate Sodium (Senna Plus) 1 tab PO BID [facility] Last Admin: 05/27/17 08:51 Dose: 1 tab Discontinued Medications Acetaminophen (Tylenol) 650 mg RECTAL NOW ONE Stop: 05/26/17 10:39 Last Admin: 05/26/17 10:56 Dose: 650 mg Baclofen (Lioresal) 10 mg PO ONETIME ONE Stop: 05/26/17 13:20 Last Admin: 05/26/17 13:35 Dose: 10 mg Baclofen (Lioresal) 10 mg PO TID [facility] Last Admin: 05/26/17 22:21 Dose: 10 mg Benztropine Mesylate (Cogentin) 1 mg PO ONETIME ONE Stop: 05/26/17 13:20 Last Admin: 05/26/17 13:36 Dose: 1 mg Benztropine Mesylate (Cogentin) 0.5 mg PO DAILY@0700 [facility] Last Admin: 05/27/17 06:39 Dose: 0.5 mg Bisacodyl (Dulcolax) 10 mg PO DAILY PRN PRN Reason: Constipation Bisacodyl (Dulcolax) 10 mg RECTAL Q3D [facility] Last Admin: 05/26/17 21:57 Dose: Not Given Carbidopa/Levodopa (Sinemet 25-100 Mg) 1 tab PO ONETIME ONE Stop: 05/26/17 13:20 Last Admin: 05/26/17 13:36 Dose: 1 tab Carbidopa/Levodopa (Sinemet 25-100 Mg) 1 tab PO TID [facility] Last Admin: 05/27/17 03:42 Dose: Not Given Hydromorphone HCl (Dilaudid) 0.5 mg IVPUSH ONETIME ONE Stop: 05/26/17 12:10 Last Admin: 05/26/17 12:17 Dose: 0.5 mg Dextrose/Sodium Chloride (Dextrose 5%-Normal Saline) 1,000 mls @ 999 mls/hr IV ASDIRECTED [facility] Last Admin: 05/26/17 10:55 Dose: 999 mls/hr Levofloxacin/Dextrose 750 mg/ (Premix) 150 mls @ 100 mls/hr IV ONETIME ONE Stop: 05/26/17 12:16 Last Admin: 05/26/17 11:07 Dose: 100 mls/hr Dextrose/Sodium Chloride (Dextrose 5%-Normal Saline) 1,000 mls @ 100 mls/hr IV ASDIRECTED [facility] Last Admin: 05/26/17 12:32 Dose: 100 mls/hr Non-Formulary Medication (Lactose-Reduced Food/Fiber [Jevity 1.5 Garth Liquid]) 100 mg PO BID [facility] Last Admin: 05/27/17 07:57 Dose: Not Given Ondansetron HCl (Zofran) 4 mg IVPUSH ONETIME ONE Stop: 05/26/17 12:10 Last Admin: 05/26/17 12:16 Dose: 4 mg Ropinirole HCl (Requip) 10 mg PO ONETIME ONE Stop: 05/26/17 13:21 Last Admin: 05/26/17 13:56 Dose: Not Given Ropinirole HCl (Ropinirole Hcl) 10 mg PO ONETIME ONE Stop: 05/26/17 14:01 Ropinirole HCl (Requip) 10 mg PO ONETIME ONE Stop: 05/26/17 14:01 Last Admin: 05/26/17 14:03 Dose: 10 mg Ropinirole HCl (Requip) 10 mg PO ONETIME STA Stop: 05/26/17 13:56 Last Admin: 05/26/17 14:17 Dose: Not Given Ropinirole HCl (Requip) 10 mg PO ONETIME ONE Stop: 05/26/17 21:01 Last Admin: 05/26/17 22:21 Dose: 10 mg Senna (Senna) 8.6 mg PO BEDTIME [facility] Last Admin: 05/27/17 05:09 Dose: Not Given Senna/Docusate Sodium (Senna Plus) 1 tab PO BID [facility] Last Admin: 05/26/17 22:21 Dose: 1 tab Tizanidine HCl (Zanaflex) 4 mg PO NOW STA Stop: 05/27/17 08:28 Last Admin: 05/27/17 08:50 Dose: 4 mg - Exam Quality Assessment: Supplemental Oxygen (0.5L/NC), DVT Prophylaxis General: No Acute Distress HEENT: Other (does not open eyes for me when asked; per nursing he was opening eyes and responsive to them just a bit prior to my exam) Neck: No JVD Lungs: Normal Respiratory Effort, Decreased Breath Sounds (mid to lower lobes; no other adventitious sounds) Cardiovascular: Regular Rate, Regular Rhythm GI/Abdominal Exam: Normal Bowel Sounds, Soft (Male) Exam: Deferred Extremities: Other (venous insufficiency changes to lower legs, brownish discoloration and scaring noted. No edema. ) Peripheral Pulses: 2+: Dorsalis Pedis (L), Dorsalis Pedis (R) Neurological: Other (unable to respond to me this morning, does not open eyes but appears to be resting comfortably. Per nursing was responsive just prior to my exam.) - Problem List & Annotations (1) Urinary tract infection associated with indwelling urethral catheter SNOMED Code(s): 71119262 Code(s): T83.511A - I/I REACT D/T INDWELLING URETHRAL CATHETER, INIT; N39.0 - URINARY TRACT INFECTION, SITE NOT SPECIFIED Status: Acute Priority: High Current Visit: Yes Qualifiers: Encounter type: initial encounter Qualified Code(s): T83.511A - Infection and inflammatory reaction due to indwelling urethral catheter, initial encounter ; N39.0 - Urinary tract infection, site not specified; N39.0 - Urinary tract infection, site not specified (2) Acute febrile illness SNOMED Code(s): 101444215 Code(s): R50.9 - FEVER, UNSPECIFIED Status: Acute Priority: High Current Visit: Yes (3) Progressive supranuclear palsy SNOMED Code(s): 08336805 Code(s): G23.1 - PROGRESSIVE SUPRANUCLEAR OPHTHALMOPLEGIA Status: Chronic Priority: Medium Current Visit: Yes (4) 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 SNOMED Code(s): 06593160 Code(s): R47.01 - APHASIA Status: Chronic Priority: Medium Current Visit: Yes (5) Renal insufficiency SNOMED Code(s): 270604516 Code(s): N28.9 - DISORDER OF KIDNEY AND URETER, UNSPECIFIED Status: Chronic Priority: Medium Current Visit: Yes (6) Hypertension SNOMED Code(s): 56853222 Code(s): I10 - ESSENTIAL (PRIMARY) HYPERTENSION Status: Chronic Priority : Low Current Visit: Yes Qualifiers: Hypertension type: essential hypertension Qualified Code(s): I10 - Essential (primary) hypertension (7) Hyperlipidemia SNOMED Code(s): 63027756 Code(s): E78.5 - HYPERLIPIDEMIA, UNSPECIFIED Status: Chronic Priority: Low Current Visit: No Qualifiers: Hyperlipidemia type: unspecified Qualified Code(s): E78.5 - Hyperlipidemia , unspecified - Problem List Review Problem List Initiated/Reviewed/Updated: Yes - My Orders Last 24 Hours: My Active Orders 05/26/17 20:08 Patient Status [ADT] Routine Height and Weight [RC] DAILY Oxygen Therapy [RC] PRN Up to Chair [RC] ASDIRECTED VTE/DVT Education [RC] QSHIFT Vital Signs [RC] Q4H Consult to Case Management [CONS] Routine Consult to Toucher Up [CONS] Routine Acetaminophen [Tylenol] 650 mg PO Q4H PRN Acetaminophen [Tylenol] 650 mg RECTAL Q4H PRN Acetaminophen/HYDROcodone [[place] 325-5 MG] 1 tab PO Q4H PRN Albuterol/Ipratropium [DuoNeb 3.0-0.5 MG/3 ML] 3 ml NEB Q4H PRN HYDROmorphone [Dilaudid] 0.25 mg IVPUSH Q2H PRN Ondansetron [Zofran ODT] 4 mg PO Q4H PRN Ondansetron [Zofran] 4 mg IV Q4H PRN 05/26/17 20:09 Intake and Output [RC] 04,16 05/26/17 20:13 RT Aerosol Therapy [RC] ASDIRECTED 05/26/17 20:15 Sodium Chloride 0.9% [Normal Saline] 1,000 ml IV ASDIRECTED 05/26/17 21:00 Communication Order [RC] DAILY 05/26/17 21:34 Consult to Primary Care Provider [CONS] Routine 05/26/17 21:46 Bisacodyl [Dulcolax] 10 mg RECTAL Q3D PRN 05/27/17 07:00 Lubiprostone [Amitiza] 24 mcg PO DAILY@0700 Pantoprazole [ProTONIX] 40 mg PO DAILY@0700 05/27/17 09:00 Tube Feeding [Enteral Feedings] [RC] Benztropine [Cogentin] 1 mg PO DAILY Carbidopa/Levodopa [Sinemet 25-100 mg] 1 tab PO QID Docusate Sodium/Sennosides [Senna Plus] 1 tab PO BID Enoxaparin [Lovenox] 40 mg SUBCUT DAILY rOPINIRole HCl [Ropinirole HCl] 10 mg PO BID 05/27/17 11:11 Consult to Speech Language Pathology [[employer] Evaluation and Treatment] [CONS] Routine 05/27/17 11:32 HEPATIC FUNCTION PANEL,HFP [CHEM] Routine 05/27/17 11:45 Levofloxacin/Dextrose 5%-Water [Levaquin in D5W 750 MG/150 ML] 750 mg Premix Bag 1 bag IV Q24H 05/27/17 15:00 rOPINIRole HCl [Ropinirole HCl] 5 mg PO DAILY@1500 05/27/17 17:00 Calcium Polycarbophil [Fibercon] 1,250 mg PO DAILY@1700 05/27/17 Breakfast Tube Feeding Adult Diet [DIET] 05/27/17 Dinner NPO [Nothing Per Oral Diet] [DIET] 05/28/17 05:11 BASIC METABOLIC PANEL,BMP [CHEM] AM C-REACTIVE PROTEIN [CHEM] AM CBC WITH AUTO DIFF [HEME] AM MAGNESIUM [CHEM] AM 05/29/17 05:11 BASIC METABOLIC PANEL,BMP [CHEM] AM C-REACTIVE PROTEIN [CHEM] AM CBC WITH AUTO DIFF [HEME] AM MAGNESIUM [CHEM] AM 05/30/17 05:11 BASIC METABOLIC PANEL,BMP [CHEM] AM C-REACTIVE PROTEIN [CHEM] AM CBC WITH AUTO DIFF [HEME] AM MAGNESIUM [CHEM] AM - Plan Plan:: I/P: AUTI with fever -Risk factors: chronic indwelling marshall catheter, hx urinary outflow obstruction, neurogenic bladder, immobility, neurologic disease (progressive supranuclear palsy), 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) -Levaquin rec'd in ED- will cont levaquin pending C&S -Prior UC in 01/2017 was with 4 organisms -Citerobacter Freundii, Staph Aureus, Pseudomonas and Enteroccus- 3/4 were sensitive to levaquin -IV hydration -Antipyretics PRN -Marshall cath changed in ED; UA obtained from new cath; tip from old cath sent to lab for culture -Florastor Sepsis risk -VSS at this time -Lactic acid 1.0 -Fluids and close monitoring Aspiration risk with PSNP -meds per peg tube at this time -[employer] eval and tx; NPO at this time until further eval -Cont PPI -Primary Care Provider consult for tube feeding rate/volume--discussed with her this morning. Chronic conditions: PSNP- with aphasia and aphagia with PEG tube in place- [employer] eval as above. -Discussed case with Dr. Malagon this morning; med changes/adjustments for increased rigidity; increase sinemet, cogentin and trial of zanaflex, cont close monitoring of rigidity. Neurogenic bladder (due to above) with chronic indwelling marshall catheter HTN- stable HLD CAD Depression Hx graves disease Hx venous stasis dermatitis--chronic skin changes to LE on exam today; no new acute findings. Other: GI prophylax DVT prophylax PT/OT RT CM/SW for assist with DC planning - expect likely 72-96 hours of treatment needed, plan DC back to [facility]. Patient is DNR/DNI code status. PCP is Dr. Malagon with [facility] in [place].
[2017-05-27] MEDS: Levofloxacin/Dextrose 5%-Water 750 MG in Premix Bag 1 BAG IV SCH (12:21)
[2017-05-27] MEDS: Calcium Polycarbophil 625 MG Tab PO SCH (17:56)
[2017-05-27] MEDS: tiZANidine 4 MG Tab PO SCH (17:56)
[2017-05-27] MEDS: Albuterol/Ipratropium 3.0-0.5 MG/3 ML Neb Soln NEB PRN ×2 (18:03→22:39)
[2017-05-27] MEDS ORDERED: Sodium Chloride 0.9% 1,000 ML IV SCH (18:25)
[2017-05-27] MEDS ORDERED: Furosemide 20 MG/2 ML VIAL IVPUSH ONE ×2 (18:47→23:28)
[2017-05-27] MEDS ORDERED: Sodium Chloride 0.9% 500 ML IV ONE (23:30)
[2017-05-27] MEDS ORDERED: Piperacillin/Tazobactam 4.5 GM in Sodium Chloride 0.9% 100 ML IV ONE (23:45)
[2017-05-28] MEDS: HYDROmorphone 0.5 MG/0.5 ML Syringe IVPUSH PRN (00:26)
[2017-05-28] MEDS ORDERED: Piperacillin/Tazobactam 4.5 GM in Sodium Chloride 0.9% 100 ML IV ONE (00:45)
[2017-05-28] MEDS: Sodium Chloride 0.9% 1,000 ML IV SCH ×4 (01:02→22:51)
[2017-05-28] MEDS: Acetaminophen 325 MG Tab PO PRN ×2 (02:05→08:18)
[2017-05-28] MEDS ORDERED: Ibuprofen 600 MG Tab PO PRN (04:05)
[2017-05-28] MEDS: Albuterol/Ipratropium 3.0-0.5 MG/3 ML Neb Soln NEB PRN ×3 (06:08→13:24)
[2017-05-28] MEDS: tiZANidine 4 MG Tab PO SCH ×4 (06:23→20:34)
[2017-05-28] MEDS: Carbidopa/Levodopa 25-100 MG Tab PO SCH ×5 (06:23→20:34)
[2017-05-28] MEDS: Pantoprazole 40 MG Tab.CR PO SCH (06:53)
[2017-05-28] MEDS: Lubiprostone 24 MCG Cap PO SCH (06:53)
[2017-05-28] MEDS ORDERED: Piperacillin/Tazobactam 4.5 GM in Sodium Chloride 0.9% 100 ML IV SCH ×5 (08:00→09:30)
--- NOTE | 2017-05-28 08:36 | CR ---
Chest: Portable view of the chest was obtained. Comparison: Prior chest x-ray of 05/26/17. Mild increased density within the left base is seen. Poor inspiratory effort is seen. Lungs otherwise are clear. Heart size and mediastinum are within normal limits for portable technique. Previous sternotomy is noted. Impression: 1. Poor inspiratory effort. Within this limitation mild increased density noted within the left lung base which could represent atelectasis although difficult to exclude slight aspiration or change of mild pneumonia. Diagnostic code #3 I agree with preliminary report issued by [facility] ([facility] report finalized on 05/28/17, 12:46 AM Central Time)
[2017-05-28] MEDS: Enoxaparin 40 MG/0.4 ML Syringe SUBCUT SCH (09:20)
[2017-05-28] MEDS: Benztropine 1 MG Tab PO SCH (09:21)
[2017-05-28] MEDS: Acetaminophen/HYDROcodone 325-5 MG Tab PO PRN ×2 (11:26→19:32)
[2017-05-28] MEDS: Vancomycin 1 GM, Vancomycin 250 MG in Sodium Chloride 0.9% 250 ML IV SCH (11:45)
[2017-05-28] MEDS ORDERED: Magnesium Sulfate/Water 2 GM in Premix Bag 1 BAG IV ONE (13:59)
--- NOTE | 2017-05-28 14:03 | PCM.PN ---
- General Info Date of Service: 05/28/17 Subjective Update: Status change with need for BIPAP, episode of resp distress yesterday. Clarification of treatment plan with his family. DNR/DNI with treatment, do not transfer to the ICU. Patient was SOB, RR 30-40 and hypotensive, this resulted in three IV ATBs, repeat CXR, BiPAP with 10/5 setting. His ABG documents a good response. Aggressive IVF remains, he has not spiked a temp > 38C and currently he's HR has been <100 BPM. His daughter and later his were informed of his current condition. Functional Status: Reports: Other (lethargic) - Review of Systems General: Reports: Weakness, Malaise HEENT: Reports: No Symptoms Pulmonary: Reports: No Symptoms Cardiovascular: Reports: No Symptoms Gastrointestinal: Reports: No Symptoms Genitourinary: Reports: No Symptoms Musculoskeletal: Reports: No Symptoms Skin: Reports: No Symptoms Neurological: Reports: No Symptoms Psychiatric: Reports: No Symptoms - Patient Data Vitals - Most Recent: Last Vital Signs Temp 37.1 C 05/28/17 11:50 Pulse 74 05/28/17 11:50 Resp 32 H 05/28/17 11:50 BP 82/44 L 05/28/17 11:50 Pulse Ox 98 05/28/17 13:25 Weight - Most Recent: 86.636 kg I&O - Last 24 Hours: Intake & Output 05/27/17 05/28/17 05/28/17 22:59 06:59 14:59 Intake Total 1357 1260 120 Output Total 425 900 Balance 932 360 120 Lab Results Last 24 Hours: Laboratory Results - last 24 hr 05/27/17 05/28/17 05/28/17 Range/Units 23:30 01:05 05:51 WBC 15.67 H (4.23-9.07) K/mm3 RBC 4.39 L (4.63-6.08) M/mm3 Hgb 14.1 (13.7-17.5) gm/L Hct 44.7 (40.1-51.0) % MCV 101.8 H (79.0-92.2) fl MCH 32.1 (25.7-32.2) pg MCHC 31.5 L (32.2-35.5) g/dl RDW Std Deviation 47.2 H (35.1-43.9) fL Plt Count 139 L (163-337) K/mm3 MPV 11.7 (9.4-12.3) fl Neut % (Auto) 89.8 H (34.0-67.9) % Lymph % (Auto) 3.4 L (21.8-53.1) % Grant % (Auto) 6.5 (5.3-12.2) % Eos % (Auto) 0 L (0.8-7.0) Baso % (Auto) 0.1 (0.1-1.2) % Neut # (Auto) 14.06 H (1.78-5.38) K/mm3 Lymph # (Auto) 0.54 L (1.32-3.57) K/mm3 Grant # (Auto) 1.02 H (0.30-0.82) K/mm3 Eos # (Auto) 0.00 L (0.04-0.54) K/mm3 Baso # (Auto) 0.02 (0.01-0.08) K/mm3 Manual Slide Review Abnormal smear Puncture Site Rt radial Rt radial ABG pH 7.22 L 7.28 L (7.35-7.45) ABG pCO2 58.1 H 49.7 H (35.0-45.0) mmHg ABG pO2 90.0 68.0 L (80.0-100.0) mmHg ABG HCO3 23 22.6 (22.0-26.0) meq/L ABG O2 Saturation 95.9 L 90.9 L (96.0-97.0) % ABG Base Excess -5.2 L -4.0 L (-2-2.0) Marcelino Test Positive A-a Gradient 477 mmHg O2 Delivery Device Nonrebreather Bipap Oxygen Flow Rate 15.0 15.0 FiO2 100.00 (21.00-100.00) % Blood Gas Comments 10/5 bipap Sodium (136-145) mEq/L Potassium (3.5-5.1) mEq/L Chloride (98-107) mEq/L Carbon Dioxide (21-32) mEq/L Anion Gap (5-15) BUN (7-18) mg/dL Creatinine (0.7-1.3) mg/dL Est Cr Clr Drug Dosing mL/min Estimated GFR (MDRD) (>60) mL/min BUN/Creatinine Ratio (14-18) Glucose (80-115) mg/dL Calcium (8.5-10.1) mg/dL Magnesium (1.8-2.4) mg/dl C-Reactive Protein (<1.0) mg/dL Mycoplasma pneumon IgM (NEGATIVE) 05/28/17 05/28/17 05/28/17 Range/Units 05:51 05:51 10:04 WBC (4.23-9.07) K/mm3 RBC (4.63-6.08) M/mm3 Hgb (13.7-17.5) gm/L Hct (40.1-51.0) % MCV (79.0-92.2) fl MCH (25.7-32.2) pg MCHC (32.2-35.5) g/dl RDW Std Deviation (35.1-43.9) fL Plt Count (163-337) K/mm3 MPV (9.4-12.3) fl Neut % (Auto) (34.0-67.9) % Lymph % (Auto) (21.8-53.1) % Grant % (Auto) (5.3-12.2) % Eos % (Auto) (0.8-7.0) Baso % (Auto) (0.1-1.2) % Neut # (Auto) (1.78-5.38) K/mm3 Lymph # (Auto) (1.32-3.57) K/mm3 Grant # (Auto) (0.30-0.82) K/mm3 Eos # (Auto) (0.04-0.54) K/mm3 Baso # (Auto) (0.01-0.08) K/mm3 Manual Slide Review Puncture Site Rt radial ABG pH 7.36 (7.35-7.45) ABG pCO2 38.4 (35.0-45.0) mmHg ABG pO2 82.0 (80.0-100.0) mmHg ABG HCO3 21.2 L (22.0-26.0) meq/L ABG O2 Saturation 96.0 (96.0-97.0) % ABG Base Excess -3.3 L (-2-2.0) Marcelino Test Positive A-a Gradient mmHg O2 Delivery Device Bipap Oxygen Flow Rate 12.0 FiO2 0.00 L (21.00-100.00) % Blood Gas Comments Sodium 146 H (136-145) mEq/L Potassium 3.6 (3.5-5.1) mEq/L Chloride 113 H (98-107) mEq/L Carbon Dioxide 24 (21-32) mEq/L Anion Gap 12.6 (5-15) BUN 30 H (7-18) mg/dL Creatinine 1.5 H (0.7-1.3) mg/dL Est Cr Clr Drug Dosing 50.37 mL/min Estimated GFR (MDRD) 46 (>60) mL/min BUN/Creatinine Ratio 20.0 H (14-18) Glucose 129 H (80-115) mg/dL Calcium 8.0 L (8.5-10.1) mg/dL Magnesium 1.7 L (1.8-2.4) mg/dl C-Reactive Protein 2.4 H* (<1.0) mg/dL Mycoplasma pneumon IgM Negative (NEGATIVE) Med Orders - Current: Current Medications Acetaminophen (Tylenol) 650 mg RECTAL Q4H PRN PRN Reason: Pain (mild 1-3) Acetaminophen (Tylenol) 650 mg PO Q4H PRN PRN Reason: Pain (Mild 1-3)/fever Last Admin: 05/28/17 08:18 Dose: 650 mg Hydrocodone Bitart/Acetaminophen ([place] 325-5 Mg) 1 tab PO Q4H PRN PRN Reason: Pain (moderate 4-6) Last Admin: 05/28/17 11:26 Dose: 1 tab Albuterol (Proventil Neb Soln) 2.5 mg NEB Q4HRRT PRN PRN Reason: Shortness of Breath Albuterol/Ipratropium (Duoneb 3.0-0.5 Mg/3 Ml) 3 ml NEB QID [facility] Benztropine Mesylate (Cogentin) 1 mg PO DAILY [facility] Last Admin: 05/28/17 09:21 Dose: 1 mg Bisacodyl (Dulcolax) 10 mg RECTAL Q3D PRN PRN Reason: Constipation Calcium Polycarbophil (Fibercon) 1,250 mg PO DAILY@1700 [facility] Last Admin: 05/27/17 17:56 Dose: 1,250 mg Carbidopa/Levodopa (Sinemet 25-100 Mg) 1 tab PO QID [facility] Last Admin: 05/28/17 09:21 Dose: 1 tab Enoxaparin Sodium (Lovenox) 40 mg SUBCUT DAILY [facility] Last Admin: 05/28/17 09:20 Dose: 40 mg Hydromorphone HCl (Dilaudid) 0.25 mg IVPUSH Q2H PRN PRN Reason: Pain (severe 7-10) Last Admin: 05/28/17 00:26 Dose: 0.25 mg Levofloxacin/Dextrose 750 mg/ (Premix) 150 mls @ 100 mls/hr IV Q24H [facility] Last Admin: 05/27/17 12:21 Dose: 100 mls/hr Sodium Chloride (Normal Saline) 1,000 mls @ 150 mls/hr IV ASDIRECTED [facility] Last Admin: 05/28/17 07:49 Dose: 150 mls/hr Piperacillin Sod/Tazobactam (Sod 4.5 gm/ Sodium Chloride) 100 mls @ 25 mls/hr IV Q8H [facility] Vancomycin HCl 1 gm/Vancomycin HCl 250 mg/ Sodium Chloride 250 mls @ 250 mls/ hr IV Q24H [facility] Last Admin: 05/28/17 11:45 Dose: 250 mls/hr Magnesium Sulfate 2 gm/ Premix 50 mls @ 25 mls/hr IV ONETIME ONE Stop: 05/28/17 15:58 Ibuprofen (Motrin) 600 mg PO Q6H PRN PRN Reason: Fever Last Admin: 05/28/17 04:25 Dose: 600 mg Lubiprostone (Amitiza) 24 mcg PO DAILY@0700 [facility] Last Admin: 05/28/17 06:53 Dose: Not Given Ondansetron HCl (Zofran Odt) 4 mg PO Q4H PRN PRN Reason: nausea, able to take PO Ondansetron HCl (Zofran) 4 mg IV Q4H PRN PRN Reason: Nausea/Vomiting Pantoprazole Sodium (Protonix) 40 mg PO DAILY@0700 [facility] Last Admin: 05/28/17 06:53 Dose: Not Given Ropinirole HCl (Ropinirole Hcl) 5 mg PO DAILY@1500 [facility] Last Admin: 05/27/17 17:56 Dose: 5 mg Ropinirole HCl (Ropinirole Hcl) 10 mg PO BID [facility] Last Admin: 05/28/17 09:21 Dose: 10 mg Senna/Docusate Sodium (Senna Plus) 1 tab PO BID [facility] Last Admin: 05/28/17 09:21 Dose: 1 tab Tizanidine HCl (Zanaflex) 4 mg PO TID [facility] Last Admin: 05/28/17 09:21 Dose: 4 mg Vancomycin HCl (Pharmacy To Dose - Vancomycin) 1 dose .XX ASDIRECTED [facility] Discontinued Medications Acetaminophen (Tylenol) 650 mg RECTAL NOW ONE Stop: 05/26/17 10:39 Last Admin: 05/26/17 10:56 Dose: 650 mg Albuterol/Ipratropium (Duoneb 3.0-0.5 Mg/3 Ml) 3 ml NEB Q4H PRN PRN Reason: Shortness Of Breath/wheezing Last Admin: 05/28/17 13:24 Dose: 3 ml Baclofen (Lioresal) 10 mg PO ONETIME ONE Stop: 05/26/17 13:20 Last Admin: 05/26/17 13:35 Dose: 10 mg Baclofen (Lioresal) 10 mg PO TID [facility] Last Admin: 05/26/17 22:21 Dose: 10 mg Benztropine Mesylate (Cogentin) 1 mg PO ONETIME ONE Stop: 05/26/17 13:20 Last Admin: 05/26/17 13:36 Dose: 1 mg Benztropine Mesylate (Cogentin) 0.5 mg PO DAILY@0700 [facility] Last Admin: 05/27/17 06:39 Dose: 0.5 mg Bisacodyl (Dulcolax) 10 mg PO DAILY PRN PRN Reason: Constipation Bisacodyl (Dulcolax) 10 mg RECTAL Q3D [facility] Last Admin: 05/26/17 21:57 Dose: Not Given Carbidopa/Levodopa (Sinemet 25-100 Mg) 1 tab PO ONETIME ONE Stop: 05/26/17 13:20 Last Admin: 05/26/17 13:36 Dose: 1 tab Carbidopa/Levodopa (Sinemet 25-100 Mg) 1 tab PO TID [facility] Last Admin: 05/27/17 03:42 Dose: Not Given Furosemide (Lasix) 20 mg IVPUSH ONETIME ONE Stop: 05/27/17 18:48 Last Admin: 05/28/17 00:20 Dose: 20 mg Furosemide (Lasix) 20 mg IVPUSH ONETIME ONE Stop: 05/27/17 23:29 Last Admin: 05/28/17 00:42 Dose: Not Given Hydromorphone HCl (Dilaudid) 0.5 mg IVPUSH ONETIME ONE Stop: 05/26/17 12:10 Last Admin: 05/26/17 12:17 Dose: 0.5 mg Dextrose/Sodium Chloride (Dextrose 5%-Normal Saline) 1,000 mls @ 999 mls/hr IV ASDIRECTED [facility] Last Admin: 05/26/17 10:55 Dose: 999 mls/hr Levofloxacin/Dextrose 750 mg/ (Premix) 150 mls @ 100 mls/hr IV ONETIME ONE Stop: 05/26/17 12:16 Last Admin: 05/26/17 11:07 Dose: 100 mls/hr Dextrose/Sodium Chloride (Dextrose 5%-Normal Saline) 1,000 mls [facility] Admin: 05/26/17 12:32 Dose: 100 mls/hr Sodium Chloride (Normal Saline) 1,000 mls @ 125 mls/hr IV ASDIRECTED [facility] Last Admin: 05/27/17 15:36 Dose: 125 mls/hr Sodium Chloride (Normal Saline) 1,000 mls @ 75 mls/hr IV ASDIRECTED [facility] Piperacillin Sod/Tazobactam (Sod 4.5 gm/ Sodium Chloride) 100 mls @ 25 mls/hr IV Q8H [facility] Sodium Chloride (Normal Saline) 500 mls @ 999 mls/hr IV ONETIME ONE Stop: 05/28/17 00:00 Last Admin: 05/28/17 00:26 Dose: 999 mls/hr Vancomycin HCl 1 gm/ Sodium (Chloride) 250 mls @ 250 mls/hr IV ONETIME ONE Stop: 05/28/17 01:59 Last Admin: 05/28/17 01:01 Dose: 250 mls/hr Piperacillin Sod/Tazobactam (Sod 4.5 gm/ Sodium Chloride) 100 mls @ 200 mls/hr IV ONETIME ONE Stop: 05/28/17 01:14 Last Admin: 05/28/17 02:12 Dose: 200 mls/hr Piperacillin Sod/Tazobactam (Sod 4.5 gm/ Sodium Chloride) 100 mls @ 25 mls/hr IV Q8H [facility] Piperacillin Sod/Tazobactam (Sod 4.5 gm/ Sodium Chloride) 100 mls @ 25 mls/hr IV Q8H [facility] Stop: 05/28/17 12:30 Last Admin: 05/28/17 09:18 Dose: 25 mls/hr Non-Formulary Medication (Lactose-Reduced Food/Fiber [Jevity 1.5 Garth Liquid]) 100 mg PO BID [facility] Last Admin: 05/27/17 07:57 Dose: Not Given Ondansetron HCl (Zofran) 4 mg IVPUSH ONETIME ONE Stop: 05/26/17 12:10 Last Admin: 05/26/17 12:16 Dose: 4 mg Ropinirole HCl (Requip) 10 mg PO ONETIME ONE Stop: 05/26/17 13:21 Last Admin: 05/26/17 13:56 Dose: Not Given Ropinirole HCl (Ropinirole Hcl) 10 mg PO ONETIME ONE Stop: 05/26/17 14:01 Ropinirole HCl (Requip) 10 mg PO ONETIME ONE Stop: 05/26/17 14:01 Last Admin: 05/26/17 14:03 Dose: 10 mg Ropinirole HCl (Requip) 10 mg PO ONETIME STA Stop: 05/26/17 13:56 Last Admin: 05/26/17 14:17 Dose: Not Given Ropinirole HCl (Requip) 10 mg PO ONETIME ONE Stop: 05/26/17 21:01 Last Admin: 05/26/17 22:21 Dose: 10 mg Senna (Senna) 8.6 mg PO BEDTIME [facility] Last Admin: 05/27/17 05:09 Dose: Not Given Senna/Docusate Sodium (Senna Plus) 1 tab PO BID [facility] Last Admin: 05/26/17 22:21 Dose: 1 tab Tizanidine HCl (Zanaflex) 4 mg PO NOW STA Stop: 05/27/17 08:28 Last Admin: 05/27/17 08:50 Dose: 4 mg - Exam Quality Assessment: Urine Catheter, DVT Prophylaxis General: Alert, Oriented, Cooperative, No Acute Distress HEENT: Pupils Equal, Pupils Reactive, EOMI Neck: Supple, Trachea Midline, No JVD Lungs: Normal Respiratory Effort, Decreased Breath Sounds, Wheezing Cardiovascular: Regular Rate, Regular Rhythm GI/Abdominal Exam: Normal Bowel Sounds, Soft, Non-Tender (Male) Exam: Deferred Back Exam: Normal Inspection Extremities: Normal Inspection Skin: Warm Neurological: No New Focal Deficit Psy/Mental Status: Other (lethargic) - Problem List Review Problem List Initiated/Reviewed/Updated: Yes - My Orders Last 24 Hours: My Active Orders 05/27/17 23:15 RESPIRATORY PANEL BY PCR [MREF] Routine 05/27/17 23:45 INFLUENZA A,B, H1N1 BY PCR [MREF] Stat 05/27/17 23:59 Sodium Chloride 0.9% [Normal Saline] 1,000 ml IV ASDIRECTED 05/27/17 Dinner Tube Feeding Adult Diet [DIET] 05/28/17 00:17 BiPAP [RESPCARE] Urgent 05/28/17 04:05 Ibuprofen [Motrin] 600 mg PO Q6H PRN 05/28/17 10:00 Vancomycin Pharmacy to Dose [Pharmacy to Dose - Vancomycin] 1 dose .XX ASDIRECTED 05/28/17 11:00 Vancomycin 1 gm Vancomycin 250 mg Sodium Chloride 0.9% [Normal Saline] 250 ml IV Q24H 05/28/17 13:57 RT Aerosol Therapy [RC] ASDIRECTED Albuterol [Proventil Neb Soln] 2.5 mg NEB Q4HRRT PRN 05/28/17 13:59 Magnesium Sulfate/Water [Magnesium Sulfate 2 GM in Water 50 ML] 2 gm Premix Bag 1 bag IV ONETIME 05/28/17 16:00 STREP PNEUMONIAE ANTIGEN [MREF] Routine 05/28/17 17:00 Albuterol/Ipratropium [DuoNeb 3.0-0.5 MG/3 ML] 3 ml NEB QID 05/28/17 17:30 Piperacillin/Tazobactam [Zosyn] 4.5 gm Sodium Chloride 0.9% [Normal Saline] 100 ml IV Q8H - Plan Plan:: I/P: AUTI with fever -Risk factors: chronic indwelling marshall catheter, hx urinary outflow obstruction, neurogenic bladder, immobility, neurologic disease (progressive supranuclear palsy), 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) -Levaquin rec'd in ED- will cont levaquin pending C&S -Prior UC in 01/2017 was with 4 organisms -Citerobacter Freundii, Staph Aureus, Pseudomonas and Enteroccus- 3/4 were sensitive to levaquin -IV hydration -Antipyretics PRN -Marshall cath changed in ED; UA obtained from new cath; tip from old cath sent to lab for culture -Florastor Sepsis risk -VSS at this time -Lactic acid 1.0 -Fluids and close monitoring Aspiration risk with PSNP -meds per peg tube at this time -MICROBIAL SPECIALIST eval and tx; NPO at this time until further eval -Cont PPI -Sales Intern consult for tube feeding rate/volume--discussed with her this morning. 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 -Discussed case with Dr. Malagon this morning; med changes/adjustments for increased rigidity; increase sinemet, cogentin and trial of zanaflex, cont close monitoring of rigidity. Neurogenic bladder (due to above) with chronic indwelling marshall catheter HTN- stable HLD CAD Depression Hx graves disease Hx venous stasis dermatitis--chronic skin changes to LE on exam today; no new acute findings. Other: GI prophylaxis DVT prophylaxis PT/OT RT CM/SW for assist with DC planning - expect likely 72-96 hours of treatment needed, plan DC back to [facility]. Patient is DNR/DNI code status. PCP is Dr. Malagon with [facility] in [place].
[2017-05-28] MEDS: Levofloxacin/Dextrose 5%-Water 750 MG in Premix Bag 1 BAG IV SCH (14:07)
[2017-05-28] MEDS: Calcium Polycarbophil 625 MG Tab PO SCH (16:21)
[2017-05-28] MEDS: Albuterol/Ipratropium 3.0-0.5 MG/3 ML Neb Soln NEB SCH ×2 (17:03→22:06)
[2017-05-28] MEDS: Piperacillin/Tazobactam 4.5 GM in Sodium Chloride 0.9% 100 ML IV SCH (19:32)
[2017-05-28] MEDS: Albuterol 0.083% 2.5 MG/3 ML Neb Soln NEB PRN (19:36)
[2017-05-29] MEDS: Acetaminophen/HYDROcodone 325-5 MG Tab PO PRN ×2 (01:06→09:26)
[2017-05-29] MEDS: Piperacillin/Tazobactam 4.5 GM in Sodium Chloride 0.9% 100 ML IV SCH ×3 (01:06→17:41)
[2017-05-29] MEDS: Sodium Chloride 0.9% 1,000 ML IV SCH ×3 (05:34→21:22)
[2017-05-29] MEDS: Albuterol/Ipratropium 3.0-0.5 MG/3 ML Neb Soln NEB SCH ×4 (06:32→20:41)
[2017-05-29] MEDS: Pantoprazole 40 MG Tab.CR PO SCH (08:04)
[2017-05-29] MEDS: Lubiprostone 24 MCG Cap PO SCH (08:06)
[2017-05-29] MEDS: Albuterol 0.083% 2.5 MG/3 ML Neb Soln NEB PRN (08:37)
--- NOTE | 2017-05-29 08:56 | PCM.CONS ---
H&P History of Present Illness - General Date of Service: 05/29/17 Admit Problem/Dx: Admission Diagnosis/Problem Admission Diagnosis/Problem Fever Kameron is seen this morning. He does not open his eyes for me or respond. He did open eyes for nursing prior to my exam. He is very rigid. Does not appear to be in discomfort but ROS is unobtainable as he is not responding at present time. He had temp overnight; Tmax was 101.7, otherwise VSS. Labs are improved this morning. Will add hepatic panel to follow elevated bilirubin, skin is jaundiced today specifically to face and chest region. Per Dietitian he had recently been seeing [facility] again and they had deemed him NPO as of 1-2 days ago; will place patient on NPO status until [facility] [employer] eval here. Discussed jevity feedings with Dietitian today. Source of Information: Provider, RN - History of Present Illness Initial Comments - Free Text/Narative: 71-year-old male was admitted for sepsis. The nurse at his bedside was concerned about displacement/dislodgment of his chronic indwelling PEG tube. The tube is needed for medication and nutritional administration as the patient has severe Parkinsons and has near complete inability to swallow. I was asked to evaluate his PEG tube. - Related Data Allergies/Adverse Reactions: Allergies Allergy/AdvReac Type Severity Reaction Status Date / Time No Known Allergies Allergy Verified 05/26/17 10:10 Home Medications: Home Meds Bisacodyl [Dulcolax] 10 mg RECTAL Q3D PRN 03/21/16 [History] Triamcinolone Acetonide [Triamcinolone Acetonide 0.5%] 1 applic TOP BID PRN [History] rOPINIRole HCl [Requip] 10 mg PO ,07/01/16 [History] rOPINIRole HCl [rOPINIRole] 5 mg PO DAILY@1500 02/07/17 [History] Baclofen 10 mg PO TID 05/26/17 [History] Benztropine [Cogentin] 0.5 mg PO 07 05/26/17 [History] Calcium Polycarbophil [Fibercon] 2 tab PO 17 05/26/17 [History] Carbidopa/Levodopa [Sinemet 25-100 mg] 1 tab PO TID 05/26/17 [History] Lactose-Reduced Food/Fiber [Jevity 1.5 Garth Liquid] 100 mg PO BID 05/26/17 [ History] Lansoprazole [Prevacid] 30 mg PO DAILY 05/26/17 [History] Lidocaine 5% 1 applic TOP BID 05/26/17 [History] Lubiprostone [Amitiza] 24 mcg PO 07 05/26/17 [History] Past Medical History HEENT History: Reports: Hard of Hearing, Impaired Vision Other HEENT History: Hearing aids Cardiovascular History: Reports: Bypass, High Cholesterol, Hypertension Other Cardiovascular History: 2002--- double bypass. Respiratory History: Reports: Pneumonia, Recurrent, Other (See Below) Other Respiratory History: aspiration d/t difficulty swallowing Gastrointestinal History: Reports: Chronic Constipation, GERD Genitourinary History: Reports: Neurogenic Bladder, Retention, Urinary Other Genitourinary History: chronic marshall Musculoskeletal History: Reports: Back Pain, Chronic, Osteoarthritis Neurological History: Reports: Parkinson's, Other (See Below) Other Neuro History: progressive supranuclearpalsy Psychiatric History: Reports: Depression, Mood Swings Endocrine/Metabolic History: Reports: Other (See Below) Other Endocrine/Metabolic History: Graves Hematologic History: Reports: None Dermatologic History: Reports: Venous Stasis Dermatitis Other Dermatologic History: guttate psoriasis - Infectious Disease History Infectious Disease History: Reports: MRSA - Past Surgical History HEENT Surgical History: Reports: Tonsillectomy, Other (See Below) Cardiovascular Surgical History: Reports: Coronary Artery Bypass Respiratory Surgical History: Reports: None GI Surgical History: Reports: None Male Surgical History: Reports: None Endocrine Surgical History: Reports: None Neurological Surgical History: Reports: None Musculoskeletal Surgical History: Reports: None Dermatological Surgical History: Reports: None Social & Family History - Family History Family Medical History: Noncontributory - Tobacco Use Smoking Status *Q: Never Smoker Years of Tobacco use: 20 Used Tobacco, but Quit: Yes Month Tobacco Last Used: 1986 Second Hand Smoke Exposure: No - Caffeine Use Caffeine Use: Reports: None - Recreational Drug Use Recreational Drug Use: No - Living Situation & Occupation Living situation: Reports: , Extended Care Facility Occupation: Disabled H&P Review of Systems - Review of Systems: Review Of Systems: ROS reveals no pertinent complaints other than HPI. Exam - Exam Exam: See Below - Vital Signs Vital Signs: Last Vital Signs Temp 37.8 C 05/29/17 04:43 Pulse 87 05/29/17 04:43 Resp 40 H 05/29/17 04:43 BP 100/52 L 05/29/17 04:43 Pulse Ox 89 L 05/29/17 08:37 Weight: 88.451 kg - Exam Quality Assessment: Supplemental Oxygen General: Alert, Cooperative, Mild Distress HEENT: EOMI Neck: Trachea Midline Lungs: Rhonchi, Other (Tachypnea) Cardiovascular: Regular Rate GI/Abdominal Exam: Soft, Non-Tender, Hernia (Umbilical hernia reducible and nontender), Other (The PEG tube appears to be in placed. It is a longer tube projecting about 3 cm from the abdominal wall. The balloon is not palpable in the subcutaneous space. There is no area erythema or rigidity near the tube site. There is no subcutaneous air near the tube site.) - Patient Data Lab Results Last 24 hrs: Laboratory Results - last 24 hr 05/28/17 05/28/17 05/29/17 Range/Units 01:05 10:04 06:10 WBC 13.49 H (4.23-9.07) K/mm3 RBC 4.01 L (4.63-6.08) M/mm3 Hgb 13.1 L (13.7-17.5) gm/L Hct 40.4 (40.1-51.0) % MCV 100.7 H (79.0-92.2) fl MCH 32.7 H (25.7-32.2) pg MCHC 32.4 (32.2-35.5) g/dl RDW Std Deviation 46.9 H (35.1-43.9) fL Plt Count 109 L (163-337) K/mm3 MPV 11.6 (9.4-12.3) fl Neut % (Auto) 86.0 H (34.0-67.9) % Lymph % (Auto) 7.1 L (21.8-53.1) % [place] % (Auto) 6.4 (5.3-12.2) % Eos % (Auto) 0.1 L (0.8-7.0) Baso % (Auto) 0.1 (0.1-1.2) % Neut # (Auto) 11.59 H (1.78-5.38) K/mm3 Lymph # (Auto) 0.96 L (1.32-3.57) K/mm3 [place] # (Auto) 0.87 H (0.30-0.82) K/mm3 Eos # (Auto) 0.01 L (0.04-0.54) K/mm3 Baso # (Auto) 0.02 (0.01-0.08) K/mm3 Manual Slide Review Abnormal smear Puncture Site Rt radial ABG pH 7.36 (7.35-7.45) ABG pCO2 38.4 (35.0-45.0) mmHg ABG pO2 82.0 (80.0-100.0) mmHg ABG HCO3 21.2 L (22.0-26.0) meq/L ABG O2 Saturation 96.0 (96.0-97.0) % ABG Base Excess -3.3 L (-2-2.0) Marcelino Test Positive Positive O2 Delivery Device Bipap Oxygen Flow Rate 12.0 FiO2 0.00 L (21.00-100.00) % Blood Gas Comments Sodium (136-145) mEq/L Potassium (3.5-5.1) mEq/L Chloride (98-107) mEq/L Carbon Dioxide (21-32) mEq/L Anion Gap (5-15) BUN (7-18) mg/dL Creatinine (0.7-1.3) mg/dL Est Cr Clr Drug Dosing mL/min Estimated GFR (MDRD) (>60) mL/min BUN/Creatinine Ratio (14-18) Glucose (80-115) mg/dL Calcium (8.5-10.1) mg/dL Magnesium (1.8-2.4) mg/dl C-Reactive Protein (<1.0) mg/dL 05/29/17 05/29/17 Range/Units 06:10 06:40 WBC (4.23-9.07) K/mm3 RBC (4.63-6.08) M/mm3 Hgb (13.7-17.5) gm/L Hct (40.1-51.0) % MCV (79.0-92.2) fl MCH (25.7-32.2) pg MCHC (32.2-35.5) g/dl RDW Std Deviation (35.1-43.9) fL Plt Count (163-337) K/mm3 MPV (9.4-12.3) fl Neut % (Auto) (34.0-67.9) % Lymph % (Auto) (21.8-53.1) % [place] % (Auto) (5.3-12.2) % Eos % (Auto) (0.8-7.0) Baso % (Auto) (0.1-1.2) % Neut # (Auto) (1.78-5.38) K/mm3 Lymph # (Auto) (1.32-3.57) K/mm3 [place] # (Auto) (0.30-0.82) K/mm3 Eos # (Auto) (0.04-0.54) K/mm3 Baso # (Auto) (0.01-0.08) K/mm3 Manual Slide Review Puncture Site Rt radial ABG pH 7.35 (7.35-7.45) ABG pCO2 42.4 (35.0-45.0) mmHg ABG pO2 67.0 L (80.0-100.0) mmHg ABG HCO3 23.0 (22.0-26.0) meq/L ABG O2 Saturation 91.9 L (96.0-97.0) % ABG Base Excess -2.0 (-2-2.0) Marcelino Test O2 Delivery Device Bipap Oxygen Flow Rate 9.0 FiO2 (21.00-100.00) % Blood Gas Comments Bipap 10/5 Sodium 146 H (136-145) mEq/L Potassium 3.9 (3.5-5.1) mEq/L Chloride 115 H (98-107) mEq/L Carbon Dioxide 24 (21-32) mEq/L Anion Gap 10.9 (5-15) BUN 23 H (7-18) mg/dL Creatinine 1.3 (0.7-1.3) mg/dL Est Cr Clr Drug Dosing 58.12 mL/min Estimated GFR (MDRD) 55 (>60) mL/min BUN/Creatinine Ratio 17.7 (14-18) Glucose 120 H (80-115) mg/dL Calcium 7.9 L (8.5-10.1) mg/dL Magnesium 2.0 (1.8-2.4) mg/dl C-Reactive Protein 20.1 H* (<1.0) mg/dL Result Diagrams: 05/29/17 06:10 05/29/17 06:10 Brian Results Last 24 hrs: Microbiology 05/28/17 18:00 Influenza Type A Antigen Screen - Final Nasal, Unspecified NEGATIVE INFLUENZA A VIRUS AG Influenza Type B Antigen Screen - Final NEGATIVE INFLUENZA B VIRUS AG Consult PN Assessment/Plan Procedures: Procedures ASSAY OF CK (CPK) (03/21/16) ASSAY OF LACTIC ACID (02/07/17) ASSAY OF MAGNESIUM (02/07/17) ASSAY OF NATRIURETIC PEPTIDE (07/01/16) ASSAY OF TROPONIN QUANT (02/07/17) ASSAY OF VANCOMYCIN (07/01/16) ASSAY THYROID STIM HORMONE (07/01/16) BLOOD CULTURE FOR BACTERIA (02/07/17) C DIFF AMPLIFIED PROBE (02/21/16) C-REACTIVE PROTEIN (02/07/17) CHANGE GASTROSTOMY TUBE (04/02/17) CHEST X-RAY 1 VIEW FRONTAL (02/07/17) CHEST X-RAY 2VW FRONTAL&LATL (07/01/16) CINE/VID X-RAY THROAT/ESOPH (10/20/16) COMPLETE CBC AUTOMATED (07/01/16) COMPLETE CBC W/AUTO DIFF WBC (02/07/17) COMPREHEN METABOLIC PANEL (02/07/17) CT HEAD/BRAIN W/O DYE (02/07/17) CT THORAX W/O DYE (03/21/16) CULTURE AEROBIC IDENTIFY (02/07/17) CULTURE OTHR SPECIMN AEROBIC (03/21/16) ELECTROCARDIOGRAM TRACING (07/01/16) EMERGENCY DEPT VISIT (04/02/17) EMERGENCY DEPT VISIT (09/30/13) EVALUATE PT USE OF INHALER (03/21/16) EVALUATE SWALLOWING FUNCTION (02/07/17) EXTREMITY STUDY (03/21/16) FIBRIN DEGRADATION QUANT (03/21/16) HYDRATE IV INFUSION ADD-ON (05/09/16) HYDRATION IV INFUSION INIT (05/09/16) INFLUENZA ASSAY W/OPTIC (07/01/16) MEASURE BLOOD OXYGEN LEVEL (03/21/16) METABOLIC PANEL TOTAL CA (02/07/17) MICROBE SUSCEPTIBLE BRIAN (02/07/17) MOTION FLUOROSCOPY/SWALLOW (10/20/16) MR-STAPH DNA AMP PROBE (02/07/17) MYCOPLASMA ANTIBODY (07/01/16) ORAL FUNCTION THERAPY (07/01/16) OT EVAL HIGH COMPLEX 60 MIN (02/07/17) OT EVALUATION (03/21/16) PROTHROMBIN TIME (03/21/16) PT EVAL HIGH COMPLEX 45 MIN (07/01/16) PT EVAL MOD COMPLEX 30 MIN (02/07/17) PT EVALUATION (03/21/16) RBC SED RATE AUTOMATED (10/17/15) RMVL DEVITAL TIS 20 CM/< (07/01/16) ROUTINE VENIPUNCTURE (02/07/17) THER/PROPH/DIAG IV INF INIT (02/07/17) THERAPEUTIC ACTIVITIES (02/07/17) THROMBOPLASTIN TIME PARTIAL (03/21/16) TTE W/DOPPLER COMPLETE (07/01/16) TX/PRO/DX INJ NEW DRUG ADDON (02/07/17) URINALYSIS AUTO W/SCOPE (02/07/17) URINE BACTERIA CULTURE (02/07/17) URINE CULTURE/COLONY COUNT (02/07/17) US EXAM ABDO BACK WALL COMP (03/21/16) VANOMYCIN DNA AMP PROBE (02/21/16) (1) PEG tube malfunction SNOMED Code(s): 661565807 Code(s): K94.23 - GASTROSTOMY MALFUNCTION Priority: High Current Visit: Yes Onset Date: ~05/29/17 Assessment:: The PEG tube was assessed at the bedside. A portable chest x-ray performed at the bedside showed no free air. There was easy flushing of the tube using 20 mL of saline. I was unable to satisfactorily aspirate bile. A tube contrast study was performed at the bedside by myself by injecting 50 mL of Gastrografin. A plain film by my interpretation revealed contrast within the body of the stomach as manifested by rugal folds and no contrast extravasation. Problem List Initiated/Reviewed/Updated: Yes Plan: Chest x-ray to evaluate for free air. Saline flush of 10 mL 2. Gastrografin tube contrast study. If unable to ascertain proper location of the PEG tube then he will need to go to endoscopy for PEG tube placement.
[2017-05-29] MEDS ORDERED: Diatrizoate Meglumine/Diatrizoate Sodium 37% 120 ML Bottle PO ONE (09:00)
--- NOTE | 2017-05-29 09:01 | PCM.OPNOTE ---
- General Post-Op/Procedure Note Date of Surgery/Procedure: 05/29/17 Operative Procedure(s): PEG tube repositioning with assessment Findings: Indwelling PEG tube Pre Op Diagnosis: Possible PEG tube dislodgment secondary to inability to aspirate gastric contents. Post-Op Diagnosis: Same Primary Surgeon: Alvino Hughes Pathology: None EBL in mLs: 0 Complications: None Condition: Good Free Text/Narrative:: Intake & Output 05/28/17 05/29/17 05/29/17 22:59 06:59 14:59 Intake Total 6136 360 Output Total 550 700 Balance 5586 -340 After removing the dressing from the PEG tube site. I removed crusted material around the site. The peg tube had a slightly longer PEG tube arm of about 3 cm above the abdominal wall. The balloon was not palpable in the subcutaneous space. There was no erythema or induration or purulence noted around the PEG tube site. After pulling back on the PEG tube to make sure that the balloon states it device was intact I injected 20 mL of saline into the PEG tube and flushed easily. There was no return on aspiration. I did not see bile. I then injected 50 mL of Gastrografin into the PEG tube. Plain films of the abdomen revealed contrast within the body of the stomach and no free air under the diaphragms. The patient tolerated the procedure well. I will have x-ray confirmed by imaging interpretation. Ifcorrect then the PEG tube can be used safely today.
[2017-05-29] MEDS: Carbidopa/Levodopa 25-100 MG Tab PO SCH ×4 (09:27→21:34)
[2017-05-29] MEDS: Enoxaparin 40 MG/0.4 ML Syringe SUBCUT SCH (09:28)
[2017-05-29] MEDS: Benztropine 1 MG Tab PO SCH (09:28)
[2017-05-29] MEDS: tiZANidine 4 MG Tab PO SCH ×3 (09:28→21:34)
[2017-05-29] MEDS: Vancomycin 1 GM, Vancomycin 250 MG in Sodium Chloride 0.9% 250 ML IV SCH (12:23)
--- NOTE | 2017-05-29 13:14 | PCM.CONSN ---
- General Info Date of Service: 05/29/17 Functional Status: Reports: Other (Called to bedside because PEG tube fell out. Apparent balloon deflation.) - Patient Data Vitals - Most Recent: Last Vital Signs Temp 38.6 C H 05/29/17 08:47 Pulse 99 05/29/17 08:47 Resp 48 H 05/29/17 08:47 BP 100/52 L 05/29/17 04:43 Pulse Ox 91 L 05/29/17 09:47 Weight - Most Recent: 88.451 kg I&O - Last 24 Hours: Intake & Output 05/28/17 05/29/17 05/29/17 22:59 06:59 14:59 Intake Total 6036 360 100 Output Total 550 700 Balance 5486 -340 100 Lab Results Last 24 Hours: Laboratory Results - last 24 hr 05/29/17 05/29/17 05/29/17 Range/Units 06:10 06:10 06:40 WBC 13.49 H (4.23-9.07) K/mm3 RBC 4.01 L (4.63-6.08) M/mm3 Hgb 13.1 L (13.7-17.5) gm/L Hct 40.4 (40.1-51.0) % MCV 100.7 H (79.0-92.2) fl MCH 32.7 H (25.7-32.2) pg MCHC 32.4 (32.2-35.5) g/dl RDW Std Deviation 46.9 H (35.1-43.9) fL Plt Count 109 L (163-337) K/mm3 MPV 11.6 (9.4-12.3) fl Neut % (Auto) 86.0 H (34.0-67.9) % Lymph % (Auto) 7.1 L (21.8-53.1) % [place] % (Auto) 6.4 (5.3-12.2) % Eos % (Auto) 0.1 L (0.8-7.0) Baso % (Auto) 0.1 (0.1-1.2) % Neut # (Auto) 11.59 H (1.78-5.38) K/mm3 Lymph # (Auto) 0.96 L (1.32-3.57) K/mm3 [place] # (Auto) 0.87 H (0.30-0.82) K/mm3 Eos # (Auto) 0.01 L (0.04-0.54) K/mm3 Baso # (Auto) 0.02 (0.01-0.08) K/mm3 Manual Slide Review Abnormal smear Puncture Site Rt radial ABG pH 7.35 (7.35-7.45) ABG pCO2 42.4 (35.0-45.0) mmHg ABG pO2 67.0 L (80.0-100.0) mmHg ABG HCO3 23.0 (22.0-26.0) meq/L ABG O2 Saturation 91.9 L (96.0-97.0) % ABG Base Excess -2.0 (-2-2.0) O2 Delivery Device Bipap Oxygen Flow Rate 9.0 Blood Gas Comments Bipap 10/5 Sodium 146 H (136-145) mEq/L Potassium 3.9 (3.5-5.1) mEq/L Chloride 115 H (98-107) mEq/L Carbon Dioxide 24 (21-32) mEq/L Anion Gap 10.9 (5-15) BUN 23 H (7-18) mg/dL Creatinine 1.3 (0.7-1.3) mg/dL Est Cr Clr Drug Dosing 58.12 mL/min Estimated GFR (MDRD) 55 (>60) mL/min BUN/Creatinine Ratio 17.7 (14-18) Glucose 120 H (80-115) mg/dL Calcium 7.9 L (8.5-10.1) mg/dL Magnesium 2.0 (1.8-2.4) mg/dl C-Reactive Protein 20.1 H* (<1.0) mg/dL Brian Results Last 24 Hours: Microbiology 05/28/17 18:00 Influenza Type A Antigen Screen - Final Nasal, Unspecified NEGATIVE INFLUENZA A VIRUS AG Influenza Type B Antigen Screen - Final NEGATIVE INFLUENZA B VIRUS AG Med Orders - Current: Current Medications Acetaminophen (Tylenol) 650 mg RECTAL Q4H PRN PRN Reason: Pain (mild 1-3) Acetaminophen (Tylenol) 650 mg PO Q4H PRN PRN Reason: Pain (Mild 1-3)/fever Last Admin: 05/28/17 08:18 Dose: 650 mg Hydrocodone Bitart/Acetaminophen ([place] 325-5 Mg) 1 tab PO Q4H PRN PRN Reason: Pain (moderate 4-6) Last Admin: 05/29/17 09:26 Dose: 1 tab Albuterol (Proventil Neb Soln) 2.5 mg NEB Q4HRRT PRN PRN Reason: Shortness of Breath Last Admin: 05/29/17 08:37 Dose: 2.5 mg Albuterol/Ipratropium (Duoneb 3.0-0.5 Mg/3 Ml) 3 ml NEB QIDRT [facility] Last Admin: 05/29/17 09:46 Dose: 3 ml Benztropine Mesylate (Cogentin) 1 mg PO DAILY [facility] Last Admin: 05/29/17 09:28 Dose: 1 mg Bisacodyl (Dulcolax) 10 mg RECTAL Q3D PRN PRN Reason: Constipation Calcium Polycarbophil (Fibercon) 1,250 mg PO DAILY@1700 [facility] Last Admin: 05/28/17 16:21 Dose: 1,250 mg Carbidopa/Levodopa (Sinemet 25-100 Mg) 1 tab PO QID [facility] Last Admin: 05/29/17 12:24 Dose: 1 tab Enoxaparin Sodium (Lovenox) 40 mg SUBCUT DAILY [facility] Last Admin: 05/29/17 09:28 Dose: 40 mg Hydromorphone HCl (Dilaudid) 0.25 mg IVPUSH Q2H PRN PRN Reason: Pain (severe 7-10) Last Admin: 05/28/17 00:26 Dose: 0.25 mg Sodium Chloride (Normal Saline) 1,000 mls @ 150 mls/hr IV ASDIRECTED [facility] Last Admin: 05/29/17 12:22 Dose: 150 mls/hr Piperacillin Sod/Tazobactam (Sod 4.5 gm/ Sodium Chloride) 100 mls @ 25 mls/hr IV Q8H [facility] Last Admin: 05/29/17 09:24 Dose: 25 mls/hr Vancomycin HCl 1 gm/Vancomycin HCl 250 mg/ Sodium Chloride 250 mls @ 250 mls/ hr IV Q24H [facility] Last Admin: 05/29/17 12:23 Dose: 250 mls/hr Ibuprofen (Motrin) 600 mg PO Q6H PRN PRN Reason: Fever Last Admin: 05/28/17 04:25 Dose: 600 mg Lubiprostone (Amitiza) 24 mcg PO DAILY@0700 [facility] Last Admin: 05/29/17 08:06 Dose: Not Given Ondansetron HCl (Zofran Odt) 4 mg PO Q4H PRN PRN Reason: nausea, able to take PO Ondansetron HCl (Zofran) 4 mg IV Q4H PRN PRN Reason: Nausea/Vomiting Pantoprazole Sodium (Protonix) 40 mg PO DAILY@0700 [facility] Last Admin: 05/29/17 08:04 Dose: Not Given Ropinirole HCl (Ropinirole Hcl) 5 mg PO DAILY@1500 [facility] Last Admin: 05/28/17 14:00 Dose: 5 mg Ropinirole HCl (Ropinirole Hcl) 10 mg PO BID [facility] Last Admin: 05/29/17 09:27 Dose: 10 mg Senna/Docusate Sodium (Senna Plus) 1 tab PO BID [facility] Last Admin: 05/29/17 09:26 Dose: 1 tab Tizanidine HCl (Zanaflex) 4 mg PO TID [facility] Last Admin: 05/29/17 09:28 Dose: 4 mg Vancomycin HCl (Pharmacy To Dose - Vancomycin) 1 dose .XX ASDIRECTED [facility] Discontinued Medications Acetaminophen (Tylenol) 650 mg RECTAL NOW ONE Stop: 05/26/17 10:39 Last Admin: 05/26/17 10:56 Dose: 650 mg Albuterol/Ipratropium (Duoneb 3.0-0.5 Mg/3 Ml) 3 ml NEB Q4H PRN PRN Reason: Shortness Of Breath/wheezing Last Admin: 05/28/17 13:24 Dose: 3 ml Baclofen (Lioresal) 10 mg PO ONETIME ONE Stop: 05/26/17 13:20 Last Admin: 05/26/17 13:35 Dose: 10 mg Baclofen (Lioresal) 10 mg PO TID [facility] Last Admin: 05/26/17 22:21 Dose: 10 mg Benztropine Mesylate (Cogentin) 1 mg PO ONETIME ONE Stop: 05/26/17 13:20 Last Admin: 05/26/17 13:36 Dose: 1 mg Benztropine Mesylate (Cogentin) 0.5 mg PO DAILY@0700 [facility] Last Admin: 05/27/17 06:39 Dose: 0.5 mg Bisacodyl (Dulcolax) 10 mg PO DAILY PRN PRN Reason: Constipation Bisacodyl (Dulcolax) 10 mg RECTAL Q3D [facility] Last Admin: 05/26/17 21:57 Dose: Not Given Carbidopa/Levodopa (Sinemet 25-100 Mg) 1 tab PO ONETIME ONE Stop: 05/26/17 13:20 Last Admin: 05/26/17 13:36 Dose: 1 tab Carbidopa/Levodopa (Sinemet 25-100 Mg) 1 tab PO TID [facility] Last Admin: 05/27/17 03:42 Dose: Not Given Furosemide (Lasix) 20 mg IVPUSH ONETIME ONE Stop: 05/27/17 18:48 Last Admin: 05/28/17 00:20 Dose: 20 mg Furosemide (Lasix) 20 mg IVPUSH ONETIME ONE Stop: 05/27/17 23:29 Last Admin: 05/28/17 00:42 Dose: Not Given Hydromorphone HCl (Dilaudid) 0.5 mg IVPUSH ONETIME ONE Stop: 05/26/17 12:10 Last Admin: 05/26/17 12:17 Dose: 0.5 mg Dextrose/Sodium Chloride (Dextrose 5%-Normal Saline) 1,000 mls @ 999 mls/hr IV ASDIRECTED [facility] Last Admin: 05/26/17 10:55 Dose: 999 mls/hr Levofloxacin/Dextrose 750 mg/ (Premix) 150 mls @ 100 mls/hr IV ONETIME ONE Stop: 05/26/17 12:16 Last Admin: 05/26/17 11:07 Dose: 100 mls/hr Dextrose/Sodium Chloride (Dextrose 5%-Normal Saline) 1,000 mls @ 100 mls/hr IV ASDIRECTED [facility] Last Admin: 05/26/17 12:32 Dose: 100 mls/hr Sodium Chloride (Normal Saline) 1,000 mls @ 125 mls/hr IV ASDIRECTED [facility] Last Admin: 05/27/17 15:36 Dose: 125 mls/hr Levofloxacin/Dextrose 750 mg/ (Premix) 150 mls @ 100 mls/hr IV Q24H [facility] Last Admin: 05/28/17 14:07 Dose: 100 mls/hr Sodium Chloride (Normal Saline) 1,000 mls @ 75 mls/hr IV ASDIRECTED [facility] Piperacillin Sod/Tazobactam (Sod 4.5 gm/ Sodium Chloride) 100 mls @ 25 mls/hr IV Q8H [facility] Last Admin: 05/28/17 18:29 Dose: Not Given Sodium Chloride (Normal Saline) 500 mls @ 999 mls/hr IV ONETIME ONE Stop: 05/28/17 00:00 Last Admin: 05/28/17 00:26 Dose: 999 mls/hr Vancomycin HCl 1 gm/ Sodium (Chloride) 250 mls @ 250 mls/hr IV ONETIME ONE Stop: 05/28/17 01:59 Last Admin: 05/28/17 01:01 Dose: 250 mls/hr Piperacillin Sod/Tazobactam (Sod 4.5 gm/ Sodium Chloride) 100 mls @ 200 mls/hr IV ONETIME ONE Stop: 05/28/17 01:14 Last Admin: 05/28/17 02:12 Dose: 200 mls/hr Piperacillin Sod/Tazobactam (Sod 4.5 gm/ Sodium Chloride) 100 mls @ 25 mls/hr IV Q8H [facility] Piperacillin Sod/Tazobactam (Sod 4.5 gm/ Sodium Chloride) 100 mls @ 25 mls/hr IV Q8H [facility] Stop: 05/28/17 12:30 Last Admin: 05/28/17 09:18 Dose: 25 mls/hr Magnesium Sulfate 2 gm/ Premix 50 mls @ 25 mls/hr IV ONETIME ONE Stop: 05/28/17 15:58 Last Admin: 05/28/17 16:49 Dose: 25 mls/hr Non-Formulary Medication (Lactose-Reduced Food/Fiber [Jevity 1.5 Garth Liquid]) 100 mg PO BID [facility] Last Admin: 05/27/17 07:57 Dose: Not Given Ondansetron HCl (Zofran) 4 mg IVPUSH ONETIME ONE Stop: 05/26/17 12:10 Last Admin: 05/26/17 12:16 Dose: 4 mg Ropinirole HCl (Requip) 10 mg PO ONETIME ONE Stop: 05/26/17 13:21 Last Admin: 05/26/17 13:56 Dose: Not Given Ropinirole HCl (Ropinirole Hcl) 10 mg PO ONETIME ONE Stop: 05/26/17 14:01 Ropinirole HCl (Requip) 10 mg PO ONETIME ONE Stop: 05/26/17 14:01 Last Admin: 05/26/17 14:03 Dose: 10 mg Ropinirole HCl (Requip) 10 mg PO ONETIME STA Stop: 05/26/17 13:56 Last Admin: 05/26/17 14:17 Dose: Not Given Ropinirole HCl (Requip) 10 mg PO ONETIME ONE Stop: 05/26/17 21:01 Last Admin: 05/26/17 22:21 Dose: 10 mg Senna (Senna) 8.6 mg PO BEDTIME [facility] Last Admin: 05/27/17 05:09 Dose: Not Given Senna/Docusate Sodium (Senna Plus) 1 tab PO BID [facility] Last Admin: 05/26/17 22:21 Dose: 1 tab Tizanidine HCl (Zanaflex) 4 mg PO NOW STA Stop: 05/27/17 08:28 Last Admin: 05/27/17 08:50 Dose: 4 mg - Exam General: No Acute Distress Consult PN Assessment/Plan Procedures: Procedures ASSAY OF CK (CPK) (03/21/16) ASSAY OF LACTIC ACID (02/07/17) ASSAY OF MAGNESIUM (02/07/17) ASSAY OF NATRIURETIC PEPTIDE (07/01/16) ASSAY OF TROPONIN QUANT (02/07/17) ASSAY OF VANCOMYCIN (07/01/16) ASSAY THYROID STIM HORMONE (07/01/16) BLOOD CULTURE FOR BACTERIA (02/07/17) C DIFF AMPLIFIED PROBE (02/21/16) C-REACTIVE PROTEIN (02/07/17) CHANGE GASTROSTOMY TUBE (04/02/17) CHEST X-RAY 1 VIEW FRONTAL (02/07/17) CHEST X-RAY 2VW FRONTAL&LATL (07/01/16) CINE/VID X-RAY THROAT/ESOPH (10/20/16) COMPLETE CBC AUTOMATED (07/01/16) COMPLETE CBC W/AUTO DIFF WBC (02/07/17) COMPREHEN METABOLIC PANEL (02/07/17) CT HEAD/BRAIN W/O DYE (02/07/17) CT THORAX W/O DYE (03/21/16) CULTURE AEROBIC IDENTIFY (02/07/17) CULTURE OTHR SPECIMN AEROBIC (03/21/16) ELECTROCARDIOGRAM TRACING (07/01/16) EMERGENCY DEPT VISIT (04/02/17) EMERGENCY DEPT VISIT (09/30/13) EVALUATE PT USE OF INHALER (03/21/16) EVALUATE SWALLOWING FUNCTION (02/07/17) EXTREMITY STUDY (03/21/16) FIBRIN DEGRADATION QUANT (03/21/16) HYDRATE IV INFUSION ADD-ON (05/09/16) HYDRATION IV INFUSION INIT (05/09/16) INFLUENZA ASSAY W/OPTIC (07/01/16) MEASURE BLOOD OXYGEN LEVEL (03/21/16) METABOLIC PANEL TOTAL CA (02/07/17) MICROBE SUSCEPTIBLE BRIAN (02/07/17) MOTION FLUOROSCOPY/SWALLOW (10/20/16) MR-STAPH DNA AMP PROBE (02/07/17) MYCOPLASMA ANTIBODY (07/01/16) ORAL FUNCTION THERAPY (07/01/16) OT EVAL HIGH COMPLEX 60 MIN (02/07/17) OT EVALUATION (03/21/16) PROTHROMBIN TIME (03/21/16) PT EVAL HIGH COMPLEX 45 MIN (07/01/16) PT EVAL MOD COMPLEX 30 MIN (02/07/17) PT EVALUATION (03/21/16) RBC SED RATE AUTOMATED (10/17/15) RMVL DEVITAL TIS 20 CM/< (07/01/16) ROUTINE VENIPUNCTURE (02/07/17) THER/PROPH/DIAG IV INF INIT (02/07/17) THERAPEUTIC ACTIVITIES (02/07/17) THROMBOPLASTIN TIME PARTIAL (03/21/16) TTE W/DOPPLER COMPLETE (07/01/16) TX/PRO/DX INJ NEW DRUG ADDON (02/07/17) URINALYSIS AUTO W/SCOPE (02/07/17) URINE BACTERIA CULTURE (02/07/17) URINE CULTURE/COLONY COUNT (02/07/17) US EXAM ABDO BACK WALL COMP (03/21/16) VANOMYCIN DNA AMP PROBE (02/21/16) (1) PEG tube malfunction SNOMED Code(s): 132906001 Code(s): 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 Patient has full stomach because of enteric feeds. Unsuccessful attempt at replacement at the bedside. Plan PEG reinsertion under endoscopy tomorrow. Plan: PEG tube reinsertion under endoscopy tomorrow. I discussed this with the patient 's who will sign the consent form when she arrived to the hospital.
[2017-05-29] MEDS: Levofloxacin/Dextrose 5%-Water 750 MG in Premix Bag 1 BAG IV SCH (13:30)
--- NOTE | 2017-05-29 13:45 | PCM.PN ---
- General Info Date of Service: 05/29/17 Subjective Update: pt is obtunded only open his eyes doesnt follow commands - Review of Systems General: Reports: Fever - Patient Data Vitals - Most Recent: Last Vital Signs Temp 99.5 F 05/29/17 12:21 Pulse 73 05/29/17 12:21 Resp 40 H 05/29/17 12:21 BP 152/62 H 05/29/17 12:00 Pulse Ox 92 L 05/29/17 12:21 Weight - Most Recent: 195 lb I&O - Last 24 Hours: Intake & Output 05/28/17 05/29/17 05/29/17 22:59 06:59 14:59 Intake Total 6036 360 100 Output Total 550 700 Balance 5486 -340 100 Lab Results Last 24 Hours: Laboratory Results - last 24 hr 05/29/17 05/29/17 05/29/17 Range/Units 06:10 06:10 06:40 WBC 13.49 H (4.23-9.07) K/mm3 RBC 4.01 L (4.63-6.08) M/mm3 Hgb 13.1 L (13.7-17.5) gm/L Hct 40.4 (40.1-51.0) % MCV 100.7 H (79.0-92.2) fl MCH 32.7 H (25.7-32.2) pg MCHC 32.4 (32.2-35.5) g/dl RDW Std Deviation 46.9 H (35.1-43.9) fL Plt Count 109 L (163-337) K/mm3 MPV 11.6 (9.4-12.3) fl Neut % (Auto) 86.0 H (34.0-67.9) % Lymph % (Auto) 7.1 L (21.8-53.1) % [place] % (Auto) 6.4 (5.3-12.2) % Eos % (Auto) 0.1 L (0.8-7.0) Baso % (Auto) 0.1 (0.1-1.2) % Neut # (Auto) 11.59 H (1.78-5.38) K/mm3 Lymph # (Auto) 0.96 L (1.32-3.57) K/mm3 Will # (Auto) 0.87 H (0.30-0.82) K/mm3 Eos # (Auto) 0.01 L (0.04-0.54) K/mm3 Baso # (Auto) 0.02 (0.01-0.08) K/mm3 Manual Slide Review Abnormal smear Puncture Site Rt radial ABG pH 7.35 (7.35-7.45) ABG pCO2 42.4 (35.0-45.0) mmHg ABG pO2 67.0 L (80.0-100.0) mmHg ABG HCO3 23.0 (22.0-26.0) meq/L ABG O2 Saturation 91.9 L (96.0-97.0) % ABG Base Excess -2.0 (-2-2.0) O2 Delivery Device Bipap Oxygen Flow Rate 9.0 Blood Gas Comments Bipap 10/5 Sodium 146 H (136-145) mEq/L Potassium 3.9 (3.5-5.1) mEq/L Chloride 115 H (98-107) mEq/L Carbon Dioxide 24 (21-32) mEq/L Anion Gap 10.9 (5-15) BUN 23 H (7-18) mg/dL Creatinine 1.3 (0.7-1.3) mg/dL Est Cr Clr Drug Dosing 58.12 mL/min Estimated GFR (MDRD) 55 (>60) mL/min BUN/Creatinine Ratio 17.7 (14-18) Glucose 120 H (80-115) mg/dL Calcium 7.9 L (8.5-10.1) mg/dL Magnesium 2.0 (1.8-2.4) mg/dl C-Reactive Protein 20.1 H* (<1.0) mg/dL Brian Results Last 24 Hours: Microbiology 05/28/17 18:00 Influenza Type A Antigen Screen - Final Nasal, Unspecified NEGATIVE INFLUENZA A VIRUS AG Influenza Type B Antigen Screen - Final NEGATIVE INFLUENZA B VIRUS AG Med Orders - Current: Current Medications Acetaminophen (Tylenol) 650 mg RECTAL Q4H PRN PRN Reason: Pain (mild 1-3) Acetaminophen (Tylenol) 650 mg PO Q4H PRN PRN Reason: Pain (Mild 1-3)/fever Last Admin: 05/28/17 08:18 Dose: 650 mg Hydrocodone Bitart/Acetaminophen ([place] 325-5 Mg) 1 tab PO Q4H PRN PRN Reason: Pain (moderate 4-6) Last Admin: 05/29/17 09:26 Dose: 1 tab Albuterol (Proventil Neb Soln) 2.5 mg NEB Q4HRRT PRN PRN Reason: Shortness of Breath Last Admin: 05/29/17 08:37 Dose: 2.5 mg Albuterol/Ipratropium (Duoneb 3.0-0.5 Mg/3 Ml) 3 ml NEB QIDRT [facility] Last Admin: 05/29/17 09:46 Dose: 3 ml Benztropine Mesylate (Cogentin) 1 mg PO DAILY [facility] Last Admin: 05/29/17 09:28 Dose: 1 mg Bisacodyl (Dulcolax) 10 mg RECTAL Q3D PRN PRN Reason: Constipation Calcium Polycarbophil (Fibercon) 1,250 mg PO DAILY@1700 [facility] Last Admin: 05/28/17 16:21 Dose: 1,250 mg Carbidopa/Levodopa (Sinemet 25-100 Mg) 1 tab PO QID [facility] Last Admin: 05/29/17 12:24 Dose: 1 tab Enoxaparin Sodium (Lovenox) 40 mg SUBCUT DAILY [facility] Last Admin: 05/29/17 09:28 Dose: 40 mg Hydromorphone HCl (Dilaudid) 0.25 mg IVPUSH Q2H PRN PRN Reason: Pain (severe 7-10) Last Admin: 05/28/17 00:26 Dose: 0.25 mg Sodium Chloride (Normal Saline) 1,000 mls @ 150 mls/hr IV ASDIRECTED [facility] Last Admin: 05/29/17 12:22 Dose: 150 mls/hr Piperacillin Sod/Tazobactam (Sod 4.5 gm/ Sodium Chloride) 100 mls @ 25 mls/hr IV Q8H [facility] Last Admin: 05/29/17 09:24 Dose: 25 mls/hr Vancomycin HCl 1 gm/Vancomycin HCl 250 mg/ Sodium Chloride 250 mls @ 250 mls/ hr IV Q24H [facility] Last Admin: 05/29/17 12:23 Dose: 250 mls/hr Ibuprofen (Motrin) 600 mg PO Q6H PRN PRN Reason: Fever Last Admin: 05/28/17 04:25 Dose: 600 mg Lubiprostone (Amitiza) 24 mcg PO DAILY@0700 [facility] Last Admin: 05/29/17 08:06 Dose: Not Given Ondansetron HCl (Zofran Odt) 4 mg PO Q4H PRN PRN Reason: nausea, able to take PO Ondansetron HCl (Zofran) 4 mg IV Q4H PRN PRN Reason: Nausea/Vomiting Pantoprazole Sodium (Protonix) 40 mg PO DAILY@0700 [facility] Last Admin: 05/29/17 08:04 Dose: Not Given Ropinirole HCl (Ropinirole Hcl) 5 mg PO DAILY@1500 [facility] Last Admin: 05/28/17 14:00 Dose: 5 mg Ropinirole HCl (Ropinirole Hcl) 10 mg PO BID [facility] Last Admin: 05/29/17 09:27 Dose: 10 mg Senna/Docusate Sodium (Senna Plus) 1 tab PO BID [facility] Last Admin: 05/29/17 09:26 Dose: 1 tab Tizanidine HCl (Zanaflex) 4 mg PO TID [facility] Last Admin: 05/29/17 09:28 Dose: 4 mg Vancomycin HCl (Pharmacy To Dose - Vancomycin) 1 dose .XX ASDIRECTED [facility] Discontinued Medications Acetaminophen (Tylenol) 650 mg RECTAL NOW ONE Stop: 05/26/17 10:39 Last Admin: 05/26/17 10:56 Dose: 650 mg Albuterol/Ipratropium (Duoneb 3.0-0.5 Mg/3 Ml) 3 ml NEB Q4H PRN PRN Reason: Shortness Of Breath/wheezing Last Admin: 05/28/17 13:24 Dose: 3 ml Baclofen (Lioresal) 10 mg PO ONETIME ONE Stop: 05/26/17 13:20 Last Admin: 05/26/17 13:35 Dose: 10 mg Baclofen (Lioresal) 10 mg PO TID [facility] Last Admin: 05/26/17 22:21 Dose: 10 mg Benztropine Mesylate (Cogentin) 1 mg PO ONETIME ONE Stop: 05/26/17 13:20 Last Admin: 05/26/17 13:36 Dose: 1 mg Benztropine Mesylate (Cogentin) 0.5 mg PO DAILY@0700 [facility] Last Admin: 05/27/17 06:39 Dose: 0.5 mg Bisacodyl (Dulcolax) 10 mg PO DAILY PRN PRN Reason: Constipation Bisacodyl (Dulcolax) 10 mg RECTAL Q3D [facility] Last Admin: 05/26/17 21:57 Dose: Not Given Carbidopa/Levodopa (Sinemet 25-100 Mg) 1 tab PO ONETIME ONE Stop: 05/26/17 13:20 Last Admin: 05/26/17 13:36 Dose: 1 tab Carbidopa/Levodopa (Sinemet 25-100 Mg) 1 tab PO TID [facility] Last Admin: 05/27/17 03:42 Dose: Not Given Furosemide (Lasix) 20 mg IVPUSH ONETIME ONE Stop: 05/27/17 18:48 Last Admin: 05/28/17 00:20 Dose: 20 mg Furosemide (Lasix) 20 mg IVPUSH ONETIME ONE Stop: 05/27/17 23:29 Last Admin: 05/28/17 00:42 Dose: Not Given Hydromorphone HCl (Dilaudid) 0.5 mg IVPUSH ONETIME ONE Stop: 05/26/17 12:10 Last Admin: 05/26/17 12:17 Dose: 0.5 mg Dextrose/Sodium Chloride (Dextrose 5%-Normal Saline) 1,000 mls @ 999 mls/hr IV ASDIRECTED [facility] Last Admin: 05/26/17 10:55 Dose: 999 mls/hr Levofloxacin/Dextrose 750 mg/ (Premix) 150 mls @ 100 mls/hr IV ONETIME ONE Stop: 05/26/17 12:16 Last Admin: 05/26/17 11:07 Dose: 100 mls/hr Dextrose/Sodium Chloride (Dextrose 5%-Normal Saline) 1,000 mls @ 100 mls/hr IV ASDIRECTED [facility] Last Admin: 05/26/17 12:32 Dose: 100 mls/hr Sodium Chloride (Normal Saline) 1,000 mls @ 125 mls/hr IV ASDIRECTED [facility] Last Admin: 05/27/17 15:36 Dose: 125 mls/hr Levofloxacin/Dextrose 750 mg/ (Premix) 150 mls @ 100 mls/hr IV Q24H [facility] Last Admin: 05/29/17 13:30 Dose: Not Given Sodium Chloride (Normal Saline) 1,000 mls @ 75 mls/hr IV ASDIRECTED [facility] Piperacillin Sod/Tazobactam (Sod 4.5 gm/ Sodium Chloride) 100 mls @ 25 mls/hr IV Q8H [facility] Last Admin: 05/28/17 18:29 Dose: Not Given Sodium Chloride (Normal Saline) 500 mls @ 999 mls/hr IV ONETIME ONE Stop: 05/28/17 00:00 Last Admin: 05/28/17 00:26 Dose: 999 mls/hr Vancomycin HCl 1 gm/ Sodium (Chloride) 250 mls @ 250 mls/hr IV ONETIME ONE Stop: 05/28/17 01:59 Last Admin: 05/28/17 01:01 Dose: 250 mls/hr Piperacillin Sod/Tazobactam (Sod 4.5 gm/ Sodium Chloride) 100 mls @ 200 mls/hr IV ONETIME ONE Stop: 05/28/17 01:14 Last Admin: 05/28/17 02:12 Dose: 200 mls/hr Piperacillin Sod/Tazobactam (Sod 4.5 gm/ Sodium Chloride) 100 mls @ 25 mls/hr IV Q8H [facility] Piperacillin Sod/Tazobactam (Sod 4.5 gm/ Sodium Chloride) 100 mls @ 25 mls/hr IV Q8H [facility] Stop: 05/28/17 12:30 Last Admin: 05/28/17 09:18 Dose: 25 mls/hr Magnesium Sulfate 2 gm/ Premix 50 mls @ 25 mls/hr IV ONETIME ONE Stop: 05/28/17 15:58 Last Admin: 05/28/17 16:49 Dose: 25 mls/hr Non-Formulary Medication (Lactose-Reduced Food/Fiber [Jevity 1.5 Garth Liquid]) 100 mg PO BID [facility] Last Admin: 05/27/17 07:57 Dose: Not Given Ondansetron HCl (Zofran) 4 mg IVPUSH ONETIME ONE Stop: 05/26/17 12:10 Last Admin: 05/26/17 12:16 Dose: 4 mg Ropinirole HCl (Requip) 10 mg PO ONETIME ONE Stop: 05/26/17 13:21 Last Admin: 05/26/17 13:56 Dose: Not Given Ropinirole HCl (Ropinirole Hcl) 10 mg PO ONETIME ONE Stop: 05/26/17 14:01 Ropinirole HCl (Requip) 10 mg PO ONETIME ONE Stop: 05/26/17 14:01 Last Admin: 05/26/17 14:03 Dose: 10 mg Ropinirole HCl (Requip) 10 mg PO ONETIME STA Stop: 05/26/17 13:56 Last Admin: 05/26/17 14:17 Dose: Not Given Ropinirole HCl (Requip) 10 mg PO ONETIME ONE Stop: 05/26/17 21:01 Last Admin: 05/26/17 22:21 Dose: 10 mg Senna (Senna) 8.6 mg PO BEDTIME [facility] Last Admin: 05/27/17 05:09 Dose: Not Given Senna/Docusate Sodium (Senna Plus) 1 tab PO BID [facility] Last Admin: 05/26/17 22:21 Dose: 1 tab Tizanidine HCl (Zanaflex) 4 mg PO NOW STA Stop: 05/27/17 08:28 Last Admin: 05/27/17 08:50 Dose: 4 mg - Exam General: Obtunded HEENT: Pupils Equal, Pupils Reactive, EOMI, Mucous Membr. Moist/Rossie Neck: Supple Lungs: Rhonchi Cardiovascular: Regular Rate, Regular Rhythm GI/Abdominal Exam: Normal Bowel Sounds, Soft, Non-Tender, No Organomegaly, No Distention, No Abnormal Bruit, No Mass, Pelvis Stable Extremities: Normal Inspection, Normal Range of Motion, Non-Tender, No Pedal Edema, Normal Capillary Refill Skin: Warm, Dry, Intact - Problem List Review Problem List Initiated/Reviewed/Updated: Yes - My Orders Last 24 Hours: My Active Orders 05/29/17 10:43 Blood Culture x2 Reflex Set [OM.PC] Stat 05/29/17 11:17 CULTURE BLOOD [BC] Stat 05/29/17 11:30 CULTURE BLOOD [BC] Stat - Plan Plan:: I/P: SEPSIS AUTI with fever -Risk factors: chronic indwelling marshall catheter, hx urinary outflow obstruction, neurogenic bladder, immobility, neurologic disease (progressive supranuclear palsy), 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) -Prior UC in 01/2017 was with 4 organisms -Citerobacter Freundii, Staph Aureus, Pseudomnas and Enteroccus- 3/4 were sensitive to levaquin -IV hydration -Antipyretics PRN -Marshall cath changed in ED; UA obtained from new cath; tip from old cath sent to lab for culture -Florastor Aspiration risk with PSNP -meds per peg tube at this time -CARPENTER INSPECTOR eval and tx; NPO at this time until further eval -Cont PPI -[employer]zing [employer] Machine Helper consult for tube feeding rate/volume--discussed with her this morning. Empiric treatment for HCAP- query LLL infiltrate Chronic conditions: PSNP- with aphasia and aphagia with PEG tube in place- CARPENTER INSPECTOR eval as above. -Discussed case with Dr. Malagon this morning; med changes/adjustments for increased rigidity; increase sinemet, cogentin and trial of zanaflex, cont close monitoring of rigidity. Neurogenic bladder (due to above) with chronic indwelling marshall catheter HTN- stable HLD CAD Depression Hx graves disease Hx venous stasis dermatitis--chronic skin changes to LE on exam today; no new acute findings. pLAN: -DC LEVAQUIN, CONT ZOSYN AND VANCO, OCTOBER DV VANCO ON AM -REPEAT BCx2 TODAY -pOOR PROGNOSIS, DISCUSS WITH HIS DTR AT BEDSIDE, WILL GIVE HIM ANOTHER 24H TO IMPROVE IF NOT WILL CONSIDER HOSPICE Patient is DNR/DNI code status. PCP is Dr. Malagon with [facility] in [place].
[2017-05-29] MEDS: Calcium Polycarbophil 625 MG Tab PO SCH (16:15)
[2017-05-29] MEDS: LORazepam 2 MG/ML MDV IVPUSH PRN (21:30)
[2017-05-29] MEDS: Acetaminophen 650 MG Supp RECTAL PRN (21:33)
[2017-05-30] MEDS: Piperacillin/Tazobactam 4.5 GM in Sodium Chloride 0.9% 100 ML IV SCH ×2 (01:56→08:32)
[2017-05-30] MEDS: LORazepam 2 MG/ML MDV IVPUSH PRN ×5 (02:50→23:00)
[2017-05-30] MEDS: Sodium Chloride 0.9% 1,000 ML IV SCH ×2 (04:20→11:00)
[2017-05-30] MEDS: Albuterol/Ipratropium 3.0-0.5 MG/3 ML Neb Soln NEB SCH ×3 (06:14→09:03)
[2017-05-30] MEDS ORDERED: Propofol 200 MG/20 ML SDV ONE ×2 (07:21→08:19)
--- NOTE | 2017-05-30 07:25 | CR ---
Chest: Portable view of the chest was obtained. Comparison: Prior chest x-ray of 05/27/17. Poor inspiratory study is seen. Atelectasis is noted within both lung bases. Difficult to exclude changes of aspiration or pneumonia within the left lung base as noted on prior study. Sternotomy is noted. Heart size appears within normal limits for portable technique. Impression: 1. Poor inspiratory study. 2. Continuing increased density within the left lung base as well as mild atelectasis within the right lung base. Findings are stable from previous study. Diagnostic code #3 Agree with preliminary report issued by [facility] ([facility] preliminary report dictated on 05/29/17, 9:41 AM Central Time)
--- NOTE | 2017-05-30 07:25 | CR ---
Abdomen: Supine view of the abdomen was obtained. Comparison: No prior study. Gastrostomy tube is seen. Contrast appears to have been injected through the gastrostomy tube with contrast seen within the stomach and within the duodenum. Bowel gas pattern is normal. Scoliosis and mild degenerative change is seen within the spine. Impression: 1. Gastrostomy tube within the stomach. 2. Other incidental findings. Diagnostic code #2 I agree with preliminary report issued by [facility] ([facility] preliminary report dictated on 05/29/17, 10:08 AM Central Time)
[2017-05-30] MEDS: Acetaminophen 650 MG Supp RECTAL PRN (07:30)
--- NOTE | 2017-05-30 07:35 | PCM.PN ---
- General Info Date of Service: 05/30/17 Functional Status: Reports: Urinating. Denies: Tolerating Diet (NPO) - Review of Systems General: Reports: Fever (low grade 99.1 overnight), Other (rigid) - Patient Data Vitals - Most Recent: Last Vital Signs Temp 97.7 F 05/30/17 02:57 Pulse 65 05/30/17 02:57 Resp 28 H 05/30/17 02:57 BP 124/66 05/30/17 02:57 Pulse Ox 94 L 05/30/17 06:14 Weight - Most Recent: 211 lb 8 oz I&O - Last 24 Hours: Intake & Output 05/29/17 05/30/17 05/30/17 22:59 06:59 14:59 Intake Total 2064 1625 Output Total 650 550 Balance 1414 1075 Lab Results Last 24 Hours: Laboratory Results - last 24 hr 05/29/17 05/30/17 Range/Units 06:10 07:00 WBC 11.96 H (4.23-9.07) K/mm3 RBC 3.91 L (4.63-6.08) M/mm3 Hgb 12.6 L (13.7-17.5) gm/L Hct 39.2 L (40.1-51.0) % MCV 100.3 H (79.0-92.2) fl MCH 32.2 (25.7-32.2) pg MCHC 32.1 L (32.2-35.5) g/dl RDW Std Deviation 46.4 H (35.1-43.9) fL Plt Count 115 L (163-337) K/mm3 MPV 12.0 (9.4-12.3) fl Neut % (Auto) 84.8 H (34.0-67.9) % Lymph % (Auto) 9.9 L (21.8-53.1) % [place] % (Auto) 4.1 L (5.3-12.2) % Eos % (Auto) 0.7 L (0.8-7.0) Baso % (Auto) 0.2 (0.1-1.2) % Neut # (Auto) 10.15 H (1.78-5.38) K/mm3 Lymph # (Auto) 1.18 L (1.32-3.57) K/mm3 [place] # (Auto) 0.49 (0.30-0.82) K/mm3 Eos # (Auto) 0.08 (0.04-0.54) K/mm3 Baso # (Auto) 0.02 (0.01-0.08) K/mm3 C-Reactive Protein 20.1 H* (<1.0) mg/dL Med Orders - Current: Current Medications Acetaminophen (Tylenol) 650 mg RECTAL Q4H PRN PRN Reason: Pain (mild 1-3) Last Admin: 05/29/17 21:33 Dose: 650 mg Acetaminophen (Tylenol) 650 mg PO Q4H PRN PRN Reason: Pain (Mild 1-3)/fever Last Admin: 05/28/17 08:18 Dose: 650 mg Hydrocodone Bitart/Acetaminophen ([place] 325-5 Mg) 1 tab PO Q4H PRN PRN Reason: Pain (moderate 4-6) Last Admin: 05/29/17 09:26 Dose: 1 tab Albuterol (Proventil Neb Soln) 2.5 mg NEB Q4HRRT PRN PRN Reason: Shortness of Breath Last Admin: 05/29/17 08:37 Dose: 2.5 mg Albuterol/Ipratropium (Duoneb 3.0-0.5 Mg/3 Ml) 3 ml NEB QIDRT [facility] Last Admin: 05/30/17 06:14 Dose: 3 ml Benztropine Mesylate (Cogentin) 1 mg PO DAILY [facility] Last Admin: 05/29/17 09:28 Dose: 1 mg Bisacodyl (Dulcolax) 10 mg RECTAL Q3D PRN PRN Reason: Constipation Calcium Polycarbophil (Fibercon) 1,250 mg PO DAILY@1700 [facility] Last Admin: 05/29/17 16:15 Dose: Not Given Carbidopa/Levodopa (Sinemet 25-100 Mg) 1 tab PO QID [facility] Last Admin: 05/29/17 21:34 Dose: Not Given Enoxaparin Sodium (Lovenox) 40 mg SUBCUT DAILY [facility] Last Admin: 05/29/17 09:28 Dose: 40 mg Hydromorphone HCl (Dilaudid) 0.25 mg IVPUSH Q2H PRN PRN Reason: Pain (severe 7-10) Last Admin: 05/28/17 00:26 Dose: 0.25 mg Sodium Chloride (Normal Saline) 1,000 mls @ 150 mls/hr IV ASDIRECTED [facility] Last Admin: 05/30/17 04:20 Dose: 150 mls/hr Piperacillin Sod/Tazobactam (Sod 4.5 gm/ Sodium Chloride) 100 mls @ 25 mls/hr IV Q8H [facility] Last Admin: 05/30/17 01:56 Dose: 25 mls/hr Vancomycin HCl 1 gm/Vancomycin HCl 250 mg/ Sodium Chloride 250 mls @ 250 mls/ hr IV Q24H [facility] Last Admin: 05/29/17 12:23 Dose: 250 mls/hr Ibuprofen (Motrin) 600 mg PO Q6H PRN PRN Reason: Fever Last Admin: 05/28/17 04:25 Dose: 600 mg Lorazepam (Ativan) 1 mg IVPUSH Q4H PRN PRN Reason: Anxiety Last Admin: 05/30/17 02:50 Dose: 1 mg Lubiprostone (Amitiza) 24 mcg PO DAILY@0700 [facility] Last Admin: 05/29/17 08:06 Dose: Not Given Ondansetron HCl (Zofran Odt) 4 mg PO Q4H PRN PRN Reason: nausea, able to take PO Ondansetron HCl (Zofran) 4 mg IV Q4H PRN PRN Reason: Nausea/Vomiting Pantoprazole Sodium (Protonix) 40 mg PO DAILY@0700 [facility] Last Admin: 05/29/17 08:04 Dose: Not Given Ropinirole HCl (Ropinirole Hcl) 5 mg PO DAILY@1500 [facility] Last Admin: 05/29/17 15:03 Dose: Not Given Ropinirole HCl (Ropinirole Hcl) 10 mg PO BID [facility] Last Admin: 05/29/17 21:35 Dose: Not Given Senna/Docusate Sodium (Senna Plus) 1 tab PO BID [facility] Last Admin: 05/29/17 21:35 Dose: Not Given Tizanidine HCl (Zanaflex) 4 mg PO TID [facility] Last Admin: 05/29/17 21:34 Dose: Not Given Vancomycin HCl (Pharmacy To Dose - Vancomycin) 1 dose .XX ASDIRECTED [facility] Discontinued Medications Acetaminophen (Tylenol) 650 mg RECTAL NOW ONE Stop: 05/26/17 10:39 Last Admin: 05/26/17 10:56 Dose: 650 mg Albuterol/Ipratropium (Duoneb 3.0-0.5 Mg/3 Ml) 3 ml NEB Q4H PRN PRN Reason: Shortness Of Breath/wheezing Last Admin: 05/28/17 13:24 Dose: 3 ml Baclofen (Lioresal) 10 mg PO ONETIME ONE Stop: 05/26/17 13:20 Last Admin: 05/26/17 13:35 Dose: 10 mg Baclofen (Lioresal) 10 mg PO TID [facility] Last Admin: 05/26/17 22:21 Dose: 10 mg Benztropine Mesylate (Cogentin) 1 mg PO ONETIME ONE Stop: 05/26/17 13:20 Last Admin: 05/26/17 13:36 Dose: 1 mg Benztropine Mesylate (Cogentin) 0.5 mg PO DAILY@0700 [facility] Last Admin: 05/27/17 06:39 Dose: 0.5 mg Bisacodyl (Dulcolax) 10 mg PO DAILY PRN PRN Reason: Constipation Bisacodyl (Dulcolax) 10 mg RECTAL Q3D [facility] Last Admin: 05/26/17 21:57 Dose: Not Given Carbidopa/Levodopa (Sinemet 25-100 Mg) 1 tab PO ONETIME ONE Stop: 05/26/17 13:20 Last Admin: 05/26/17 13:36 Dose: 1 tab Carbidopa/Levodopa (Sinemet 25-100 Mg) 1 tab PO TID [facility] Last Admin: 05/27/17 03:42 Dose: Not Given Diatrizoate Meglum/Diatrizoate Sod (Gastrografin 37%) 120 ml PO ONETIME ONE Stop: 05/29/17 09:01 Last Admin: 05/29/17 09:00 Dose: 1 bottle Furosemide (Lasix) 20 mg IVPUSH ONETIME ONE Stop: 05/27/17 18:48 Last Admin: 05/28/17 00:20 Dose: 20 mg Furosemide (Lasix) 20 mg IVPUSH ONETIME ONE Stop: 05/27/17 23:29 Last Admin: 05/28/17 00:42 Dose: Not Given Hydromorphone HCl (Dilaudid) 0.5 mg IVPUSH ONETIME ONE Stop: 05/26/17 12:10 Last Admin: 05/26/17 12:17 Dose: 0.5 mg Dextrose/Sodium Chloride (Dextrose 5%-Normal Saline) 1,000 mls @ 999 mls/hr IV ASDIRECTED [facility] Last Admin: 05/26/17 10:55 Dose: 999 mls/hr Levofloxacin/Dextrose 750 mg/ (Premix) 150 mls @ 100 mls/hr IV ONETIME ONE Stop: 05/26/17 12:16 Last Admin: 05/26/17 11:07 Dose: 100 mls/hr Dextrose/Sodium Chloride (Dextrose 5%-Normal Saline) 1,000 mls @ 100 mls/hr IV ASDIRECTED [facility] Last Admin: 05/26/17 12:32 Dose: 100 mls/hr Sodium Chloride (Normal Saline) 1,000 mls @ 125 mls/hr IV ASDIRECTED [facility] Last Admin: 05/27/17 15:36 Dose: 125 mls/hr Levofloxacin/Dextrose 750 mg/ (Premix) 150 mls @ 100 mls/hr IV Q24H [facility] Last Admin: 05/29/17 13:30 Dose: Not Given Sodium Chloride (Normal Saline) 1,000 mls @ 75 mls/hr IV ASDIRECTED [facility] Piperacillin Sod/Tazobactam (Sod 4.5 gm/ Sodium Chloride) 100 mls @ 25 mls/hr IV Q8H [facility] Last Admin: 05/28/17 18:29 Dose: Not Given Sodium Chloride (Normal Saline) 500 mls @ 999 mls/hr IV ONETIME ONE Stop: 05/28/17 00:00 Last Admin: 05/28/17 00:26 Dose: 999 mls/hr Vancomycin HCl 1 gm/ Sodium (Chloride) 250 mls @ 250 mls/hr IV ONETIME ONE Stop: 05/28/17 01:59 Last Admin: 05/28/17 01:01 Dose: 250 mls/hr Piperacillin Sod/Tazobactam (Sod 4.5 gm/ Sodium Chloride) 100 mls @ 200 mls/hr IV ONETIME ONE Stop: 05/28/17 01:14 Last Admin: 05/28/17 02:12 Dose: 200 mls/hr Piperacillin Sod/Tazobactam (Sod 4.5 gm/ Sodium Chloride) 100 mls @ 25 mls/hr IV Q8H [facility] Piperacillin Sod/Tazobactam (Sod 4.5 gm/ Sodium Chloride) 100 mls @ 25 mls/hr IV Q8H [facility] Stop: 05/28/17 12:30 Last Admin: 05/28/17 09:18 Dose: 25 mls/hr Magnesium Sulfate 2 gm/ Premix 50 mls @ 25 mls/hr IV ONETIME ONE Stop: 05/28/17 15:58 Last Admin: 05/28/17 16:49 Dose: 25 mls/hr Non-Formulary Medication (Lactose-Reduced Food/Fiber [Jevity 1.5 Garth Liquid]) 100 mg PO BID [facility] Last Admin: 05/27/17 07:57 Dose: Not Given Ondansetron HCl (Zofran) 4 mg IVPUSH ONETIME ONE Stop: 05/26/17 12:10 Last Admin: 05/26/17 12:16 Dose: 4 mg Propofol (Diprivan 20 Ml) Confirm Administered Dose 200 mg .ROUTE .STK-MED ONE Stop: 05/30/17 07:22 Ropinirole HCl (Requip) 10 mg PO ONETIME ONE Stop: 05/26/17 13:21 Last Admin: 05/26/17 13:56 Dose: Not Given Ropinirole HCl (Ropinirole Hcl) 10 mg PO ONETIME ONE Stop: 05/26/17 14:01 Ropinirole HCl (Requip) 10 mg PO ONETIME ONE Stop: 05/26/17 14:01 Last Admin: 05/26/17 14:03 Dose: 10 mg Ropinirole HCl (Requip) 10 mg PO ONETIME STA Stop: 05/26/17 13:56 Last Admin: 05/26/17 14:17 Dose: Not Given Ropinirole HCl (Requip) 10 mg PO ONETIME ONE Stop: 05/26/17 21:01 Last Admin: 05/26/17 22:21 Dose: 10 mg Senna (Senna) 8.6 mg PO BEDTIME [facility] Last Admin: 05/27/17 05:09 Dose: Not Given Senna/Docusate Sodium (Senna Plus) 1 tab PO BID [facility] Last Admin: 05/26/17 22:21 Dose: 1 tab Tizanidine HCl (Zanaflex) 4 mg PO NOW STA Stop: 05/27/17 08:28 Last Admin: 05/27/17 08:50 Dose: 4 mg - Problem List & Annotations (1) Urinary tract infection associated with indwelling urethral catheter SNOMED Code(s): 21765855 Code(s): T83.511A - I/I REACT D/T INDWELLING URETHRAL CATHETER, INIT; N39.0 - URINARY TRACT INFECTION, SITE NOT SPECIFIED Status: Acute Priority: High Current Visit: Yes Qualifiers: Encounter type: initial encounter Qualified Code(s): T83.511A - Infection and inflammatory reaction due to indwelling urethral catheter, initial encounter ; N39.0 - Urinary tract infection, site not specified; N39.0 - Urinary tract infection, site not specified (2) Acute febrile illness SNOMED Code(s): 996253827 Code(s): R50.9 - FEVER, UNSPECIFIED Status: Acute Priority: High Current Visit: Yes (3) Progressive supranuclear palsy SNOMED Code(s): 79117548 Code(s): G23.1 - PROGRESSIVE SUPRANUCLEAR OPHTHALMOPLEGIA Status: Chronic Priority: Medium Current Visit: Yes (4) 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 SNOMED Code(s): 92725088 Code(s): R47.01 - APHASIA Status: Chronic Priority: Medium Current Visit: Yes (5) Renal insufficiency SNOMED Code(s): 884831852 Code(s): N28.9 - DISORDER OF KIDNEY AND URETER, UNSPECIFIED Status: Chronic Priority: Medium Current Visit: Yes (6) Hypertension SNOMED Code(s): 99667317 Code(s): I10 - ESSENTIAL (PRIMARY) HYPERTENSION Status: Chronic Priority : Low Current Visit: Yes Qualifiers: Hypertension type: essential hypertension Qualified Code(s): I10 - Essential (primary) hypertension (7) Hyperlipidemia SNOMED Code(s): 34212406 Code(s): E78.5 - HYPERLIPIDEMIA, UNSPECIFIED Status: Chronic Priority: Low Current Visit: No Qualifiers: Hyperlipidemia type: unspecified Qualified Code(s): E78.5 - Hyperlipidemia , unspecified (8) PEG tube malfunction SNOMED Code(s): 075347830 Code(s): K94.23 - GASTROSTOMY MALFUNCTION Status: Acute Priority: High Current Visit: Yes Onset Date: ~05/29/17 - Problem List Review Problem List Initiated/Reviewed/Updated: Yes - My Orders Last 24 Hours: My Active Orders 12/04/17 07:00 BASIC METABOLIC PANEL,BMP [CHEM] AM C-REACTIVE PROTEIN [CHEM] AM CBC WITH AUTO DIFF [HEME] AM MAGNESIUM [CHEM] AM - Plan Plan:: I/P: SEPSIS AUTI with fever -Risk factors: chronic indwelling marshall catheter, hx urinary outflow obstruction, neurogenic bladder, immobility, neurologic disease (progressive supranuclear palsy), 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) -Prior UC in 01/2017 was with 4 organisms -Citerobacter Freundii, Staph Aureus, Pseudomnas and Enteroccus- 3/4 were sensitive to levaquin -IV hydration -Antipyretics PRN -Marshall cath changed in ED; UA obtained from new cath; tip from old cath sent to lab for culture -Florastor Aspiration risk with PSNP -meds per peg tube at this time -CR[employer]HER [employer] OPERATOR eval and tx; NPO at this time until further eval -Cont PPI -Digital Business Analyst consult for tube feeding rate/volume--discussed with her this morning. Empiric treatment for HCAP- query LLL infiltrate -Vanco and Zosyn IV abx -Supplemental O2 at 6L/NC now -RT tx/aggressive pulmonary care -Repeat BC obtained yesterday PEG tube dislodgment- Consult Dr. Hughes yesterday -Plans for reinsertion of peg tube today under endoscopy. Chronic conditions: PSNP- with aphasia and aphagia with PEG tube in place- CRUSHER AND BLENDER OPERATOR eval as above. -Discussed case with Dr. Malagon morning of admission; med changes/ adjustments for increased rigidity; increase sinemet, cogentin and trial of zanaflex, cont close monitoring of rigidity. Neurogenic bladder (due to above) with chronic indwelling marshall catheter HTN- stable HLD CAD Depression Hx graves disease Hx venous stasis dermatitis--chronic skin changes to LE on exam today; no new acute findings. Other: -POOR PROGNOSIS, DISCUSS WITH HIS DTR AT BEDSIDE, WILL GIVE HIM ANOTHER 24H TO IMPROVE IF NOT WILL CONSIDER HOSPICE -- Per Dr. Prater over the weekend. Patient is DNR/DNI code status. PCP is Dr. Malagon with [facility] in [place].
--- NOTE | 2017-05-30 07:57 | PCM.PREANE ---
Preanesthetic Assessment - Procedure Proposed Procedure: PEG tube placement - Anesthesia/Transfusion/Family Hx Anesthesia History: Prior Anesthesia Without Reaction Family History of Anesthesia Reaction: No Transfusion History: Unknown Intubation History: Unknown Additional History: Patient does not speak or follow commands. Most of the pre-assessment was obtained from (Jolly) and charts. - Review of Systems General: Weakness, Other (diaphorteic) Pulmonary: Shortness of Breath, Cough, Other (BiPAP dependent / 6L. Pneumonia , ) Cardiovascular: Other (HX of CABG x2 2002, HTN, HLD, ) Gastrointestinal: Difficulty Swallowing, Other (Pt had a dislodged PEG tube ) Neurological: Other (Pt doesnt has end stage Parkinsons, ) Other: Reports: Depression, Anxiety - Physical Assessment NPO Status Date: 05/29/17 NPO Status Time: 13:00 Pulse: 66 O2 Sat by Pulse Oximetry: 98 Respiratory Rate: 28 Blood Pressure: 107/65 Temperature: 36.8 C Vital Signs: Last Vital Signs Temp 36.8 C 05/30/17 07:30 Pulse 65 05/30/17 02:57 Resp 28 H 05/30/17 02:57 BP 124/66 05/30/17 02:57 Pulse Ox 94 L 05/30/17 06:14 Height: 1.83 m Weight: 95.935 kg ASA Class: 4 Mental Status: Alert & Oriented x3 Thyro-Mental Finger Breadths: 3 (unable to assess airway due to bipap dependency ) ROM/Head Extension: Full Lungs: Decreased Breath Sounds, Crackles, Rales, Rhonchi Cardiovascular: Regular Rate, Regular Rhythm - Lab Values: Laboratory Last Values WBC 11.96 K/mm3 (4.23-9.07) H 05/30/17 07:00 RBC 3.91 M/mm3 (4.63-6.08) L 05/30/17 07:00 Hgb 12.6 gm/L (13.7-17.5) L 05/30/17 07:00 Hct 39.2 % (40.1-51.0) L 05/30/17 07:00 MCV 100.3 fl (79.0-92.2) H 05/30/17 07:00 MCH 32.2 pg (25.7-32.2) 05/30/17 07:00 MCHC 32.1 g/dl (32.2-35.5) L 05/30/17 07:00 RDW Std Deviation 46.4 fL (35.1-43.9) H 05/30/17 07:00 Plt Count 115 K/mm3 (163-337) L 05/30/17 07:00 MPV 12.0 fl (9.4-12.3) 05/30/17 07:00 Neut % (Auto) 84.8 % (34.0-67.9) H 05/30/17 07:00 Lymph % (Auto) 9.9 % (21.8-53.1) L 05/30/17 07:00 [place] % (Auto) 4.1 % (5.3-12.2) L 05/30/17 07:00 Eos % (Auto) 0.7 (0.8-7.0) L 05/30/17 07:00 Baso % (Auto) 0.2 % (0.1-1.2) 05/30/17 07:00 Neut # (Auto) 10.15 K/mm3 (1.78-5.38) H 05/30/17 07:00 Lymph # (Auto) 1.18 K/mm3 (1.32-3.57) L 05/30/17 07:00 [place] # (Auto) 0.49 K/mm3 (0.30-0.82) 05/30/17 07:00 Eos # (Auto) 0.08 K/mm3 (0.04-0.54) 05/30/17 07:00 Baso # (Auto) 0.02 K/mm3 (0.01-0.08) 05/30/17 07:00 Neutrophils % (Manual) 58 % (40-60) 05/26/17 10:15 Band Neutrophils % 0 % (0-10) 05/26/17 10:15 Lymphocytes % (Manual) 32 % (20-40) 05/26/17 10:15 Atypical Lymphs % 0 % 05/26/17 10:15 Monocytes % (Manual) 7 % (2-10) 05/26/17 10:15 Eosinophils % (Manual) 3 % (0.8-7.0) 05/26/17 10:15 Basophils % (Manual) 0 (0.2-1.2) L 05/26/17 10:15 Manual Slide Review Abnormal smear 05/30/17 07:00 Platelet Estimate Adequate 05/26/17 10:15 RBC Morph Comment Normal 05/26/17 10:15 PT 12.1 SECONDS (8.0-13.0) 05/26/17 10:15 INR 1.10 05/26/17 10:15 Puncture Site Rt radial 05/29/17 06:40 ABG pH 7.35 (7.35-7.45) 05/29/17 06:40 ABG pCO2 42.4 mmHg (35.0-45.0) 05/29/17 06:40 ABG pO2 67.0 mmHg (80.0-100.0) L 05/29/17 06:40 ABG HCO3 23.0 meq/L (22.0-26.0) 05/29/17 06:40 ABG O2 Saturation 91.9 % (96.0-97.0) L 05/29/17 06:40 ABG Base Excess -2.0 (-2-2.0) 05/29/17 06:40 Marcelino Test Positive 05/28/17 10:04 A-a Gradient 477 mmHg 05/27/17 23:30 O2 Delivery Device Bipap 05/29/17 06:40 Oxygen Flow Rate 9.0 05/29/17 06:40 FiO2 0.00 % (21.00-100.00) L 05/28/17 10:04 Blood Gas Comments Bipap 03/3105/29/17 06:40 Sodium 146 mEq/L (136-145) H 05/29/17 06:10 Potassium 3.9 mEq/L (3.5-5.1) 05/29/17 06:10 Chloride 115 mEq/L (98-107) H 05/29/17 06:10 Carbon Dioxide 24 mEq/L (21-32) 05/29/17 06:10 Anion Gap 10.9 (5-15) 05/29/17 06:10 BUN 23 mg/dL (7-18) H 05/29/17 06:10 Creatinine 1.3 mg/dL (0.7-1.3) 05/29/17 06:10 Est Cr Clr Drug Dosing 58.12 mL/min 05/29/17 06:10 Estimated GFR (MDRD) 55 mL/min (>60) 05/29/17 06:10 BUN/Creatinine Ratio 17.7 (14-18) 05/29/17 06:10 Glucose 120 mg/dL (80-115) H 05/29/17 06:10 Lactic Acid 1.0 mmol/L (0.4-2.0) 05/26/17 10:50 Calcium 7.9 mg/dL (8.5-10.1) L 05/29/17 06:10 Magnesium 2.0 mg/dl (1.8-2.4) 05/29/17 06:10 Total Bilirubin 3.8 mg/dL (0.2-1.0) H 05/27/17 05:55 Direct Bilirubin 0.30 mg/dl (0.0-0.2) H 05/27/17 05:55 Indirect Bilirubin 3.50 05/27/17 05:55 AST 36 U/L (15-37) 05/27/17 05:55 ALT 24 U/L (16-63) 05/27/17 05:55 Alkaline Phosphatase 82 U/L (46-116) 05/27/17 05:55 CK-MB (CK-2) 3.6 ng/ml (0-3.6) 05/26/17 10:15 Troponin I 0.017 ng/mL (0.00-0.056) 05/26/17 10:15 C-Reactive Protein 20.1 mg/dL (<1.0) H* 05/29/17 06:10 NT-Pro-B Natriuret Pep 467 pg/mL (0-125) H 05/26/17 10:15 Total Protein 6.2 g/dl (6.4-8.2) L 05/27/17 05:55 Albumin 3.0 g/dl (3.4-5.0) L 05/27/17 05:55 Globulin 3.2 gm/dL 05/27/17 05:55 Albumin/Globulin Ratio 0.9 (1-2) L 05/27/17 05:55 Urine Color [place] (Yellow) H 05/26/17 10:40 Urine Appearance Slt cloudy (Clear) H 05/26/17 10:40 Urine pH 5.5 (5.0-8.0) 05/26/17 10:40 Ur Specific [place] 1.025 (1.005-1.030) 05/26/17 10:40 Urine Protein 2+ (Negative) H 05/26/17 10:40 Urine Glucose (UA) Negative (Negative) 05/26/17 10:40 Urine Ketones 1+ (Negative) H 05/26/17 10:40 Urine Occult Blood Trace-intact (Negative) H 05/26/17 10:40 Urine Nitrite Negative (Negative) 05/26/17 10:40 Urine Bilirubin 1+ (Negative) H 05/26/17 10:40 Urine Urobilinogen 1.0 (0.2-1.0) 05/26/17 10:40 Ur Leukocyte Esterase Trace (Negative) H 05/26/17 10:40 Urine RBC 0-5 /hpf (0-5) 05/26/17 10:40 Urine WBC 20-30 /hpf (0-5) H 05/26/17 10:40 Ur Epithelial Cells 0-5 /hpf (0-5) 05/26/17 10:40 Urine Bacteria Few /hpf (FEW) 05/26/17 10:40 Urine Mucus Few /hpf (FEW) 05/26/17 10:40 Mycoplasma pneumon IgM Negative (NEGATIVE) 05/28/17 05:51 MRSA (PCR) Positive H 05/26/17 13:30 - Allergies Allergies/Adverse Reactions: Allergies Allergy/AdvReac Type Severity Reaction Status Date / Time No Known Allergies Allergy Verified 05/26/17 10:10 - Blood Blood Available: No Product(s) Available: None - Acknowledgements Anesthesia Type Planned: MAC (Consent obtained from this morning. Expressed to concern to the about the patients respiratory status and being BiPAP dependent and the need for an EGD for the procedure. Explained to her that this is a very risky procedure for Don and there is a chance that he may decompensate to the point where he needs to be intubated. Jolly specifically said she DOES NOT want Don intubated if need be during the procedure. DNI was added to the surgical consent form. Jolly is aware of the major risks that may accompany this procedure including respiratory failure, heart attack, storke, or and is still willing to procede by stating "I just have to trust the doctor." ) Pt an Appropriate Candidate for the Planned Anesthesia: Yes Alternatives and Risks of Anesthesia Discussed w Pt/Guardian: Yes Pt/Guardian Understands and Agrees with Anesthesia Plan: Yes PreAnesthesia Questionnaire HEENT History: Reports: Hard of Hearing, Impaired Vision Other HEENT History: Hearing aids Cardiovascular History: Reports: Bypass, High Cholesterol, Hypertension Other Cardiovascular History: 2002--- double bypass. Respiratory History: Reports: Pneumonia, Recurrent, Other (See Below) Other Respiratory History: aspiration d/t difficulty swallowing Gastrointestinal History: Reports: Chronic Constipation, GERD Genitourinary History: Reports: Neurogenic Bladder, Retention, Urinary Other Genitourinary History: chronic marshall Musculoskeletal History: Reports: Back Pain, Chronic, Osteoarthritis Neurological History: Reports: Parkinson's, Other (See Below) Other Neuro History: progressive supranuclearpalsy Psychiatric History: Reports: Depression, Mood Swings Endocrine/Metabolic History: Reports: Other (See Below) Other Endocrine/Metabolic History: Graves Hematologic History: Reports: None Dermatologic History: Reports: Venous Stasis Dermatitis Other Dermatologic History: guttate psoriasis - Infectious Disease History Infectious Disease History: Reports: MRSA - Past Surgical History HEENT Surgical History: Reports: Tonsillectomy, Other (See Below) Cardiovascular Surgical History: Reports: Coronary Artery Bypass Respiratory Surgical History: Reports: None GI Surgical History: Reports: None Male Surgical History: Reports: None Endocrine Surgical History: Reports: None Neurological Surgical History: Reports: None Musculoskeletal Surgical History: Reports: None Dermatological Surgical History: Reports: None - SUBSTANCE USE Smoking Status *Q: Never Smoker Tobacco Use Within Last Twelve Months: No Second Hand Smoke Exposure: No Recreational Drug Use History: No - HOME MEDS Home Medications: Home Meds Bisacodyl [Dulcolax] 10 mg RECTAL Q3D PRN 03/21/16 [History] Triamcinolone Acetonide [Triamcinolone Acetonide 0.5%] 1 applic TOP BID PRN [History] rOPINIRole HCl [Requip] 10 mg PO 09,21 07/01/16 [History] rOPINIRole HCl [rOPINIRole] 5 mg PO DAILY@1500 02/07/17 [History] Baclofen 10 mg PO TID 05/26/17 [History] Benztropine [Cogentin] 0.5 mg PO 07 05/26/17 [History] Calcium Polycarbophil [Fibercon] 2 tab PO 05/26/17 [History] Carbidopa/Levodopa [Sinemet 25-100 mg] 1 tab PO TID 05/26/17 [History] Lactose-Reduced Food/Fiber [Jevity 1.5 Garth Liquid] 100 mg PO BID 05/26/17 [ History] Lansoprazole [Prevacid] 30 mg PO DAILY 05/26/17 [History] Lidocaine 5% 1 applic TOP BID 05/26/17 [History] Lubiprostone [Amitiza] 24 mcg PO 07 05/26/17 [History] - CURRENT (IN HOUSE) MEDS Current Meds: Current Medications Acetaminophen (Tylenol) 650 mg RECTAL Q4H PRN PRN Reason: Pain (mild 1-3) Last Admin: 05/30/17 07:30 Dose: 650 mg Acetaminophen (Tylenol) 650 mg PO Q4H PRN PRN Reason: Pain (Mild 1-3)/fever Last Admin: 05/28/17 08:18 Dose: 650 mg Hydrocodone Bitart/Acetaminophen ([place]keye 325-5 Mg) 1 tab PO Q4H PRN PRN Reason: Pain (moderate 4-6) Last Admin: 05/29/17 09:26 Dose: 1 tab Albuterol (Proventil Neb Soln) 2.5 mg NEB Q4HRRT PRN PRN Reason: Shortness of Breath Last Admin: 05/29/17 08:37 Dose: 2.5 mg Albuterol/Ipratropium (Duoneb 3.0-0.5 Mg/3 Ml) 3 ml NEB QIDRT [facility] Last Admin: 05/30/17 06:14 Dose: 3 ml Benztropine Mesylate (Cogentin) 1 mg PO DAILY [facility] Last Admin: 05/29/17 09:28 Dose: 1 mg Bisacodyl (Dulcolax) 10 mg RECTAL Q3D PRN PRN Reason: Constipation Calcium Polycarbophil (Fibercon) 1,250 mg PO DAILY@1700 [facility] Last Admin: 05/29/17 16:15 Dose: Not Given Carbidopa/Levodopa (Sinemet 25-100 Mg) 1 tab PO QID [facility] Last Admin: 05/29/17 21:34 Dose: Not Given Enoxaparin Sodium (Lovenox) 40 mg SUBCUT DAILY [facility] Last Admin: 05/29/17 09:28 Dose: 40 mg Hydromorphone HCl (Dilaudid) 0.25 mg IVPUSH Q2H PRN PRN Reason: Pain (severe 7-10) Last Admin: 05/28/17 00:26 Dose: 0.25 mg Sodium Chloride (Normal Saline) 1,000 mls @ 150 mls/hr IV ASDIRECTED [facility] Last Admin: 05/30/17 04:20 Dose: 150 mls/hr Piperacillin Sod/Tazobactam (Sod 4.5 gm/ Sodium Chloride) 100 mls @ 25 mls/hr IV Q8H [facility] Last Admin: 05/30/17 01:56 Dose: 25 mls/hr Vancomycin HCl 1 gm/Vancomycin HCl 250 mg/ Sodium Chloride 250 mls @ 250 mls/ hr IV Q24H [facility] Last Admin: 05/29/17 12:23 Dose: 250 mls/hr Ibuprofen (Motrin) 600 mg PO Q6H PRN PRN Reason: Fever Last Admin: 05/28/17 04:25 Dose: 600 mg Lorazepam (Ativan) 1 mg IVPUSH Q4H PRN PRN Reason: Anxiety Last Admin: 05/30/17 02:50 Dose: 1 mg Lubiprostone (Amitiza) 24 mcg PO DAILY@0700 [facility] Last Admin: 05/29/17 08:06 Dose: Not Given Ondansetron HCl (Zofran Odt) 4 mg PO Q4H PRN PRN Reason: nausea, able to take PO Ondansetron HCl (Zofran) 4 mg IV Q4H PRN PRN Reason: Nausea/Vomiting Pantoprazole Sodium (Protonix) 40 mg PO DAILY@0700 [facility] Last Admin: 05/29/17 08:04 Dose: Not Given Ropinirole HCl (Ropinirole Hcl) 5 mg PO DAILY@1500 [facility] Last Admin: 05/29/17 15:03 Dose: Not Given Ropinirole HCl (Ropinirole Hcl) 10 mg PO BID [facility] Last Admin: 05/29/17 21:35 Dose: Not Given Senna/Docusate Sodium (Senna Plus) 1 tab PO BID [facility] Last Admin: 05/29/17 21:35 Dose: Not Given Tizanidine HCl (Zanaflex) 4 mg PO TID [facility] Last Admin: 05/29/17 21:34 Dose: Not Given Vancomycin HCl (Pharmacy To Dose - Vancomycin) 1 dose .XX ASDIRECTED [facility] Discontinued Medications Acetaminophen (Tylenol) 650 mg RECTAL NOW ONE Stop: 05/26/17 10:39 Last Admin: 05/26/17 10:56 Dose: 650 mg Albuterol/Ipratropium (Duoneb 3.0-0.5 Mg/3 Ml) 3 ml NEB Q4H PRN PRN Reason: Shortness Of Breath/wheezing Last Admin: 05/28/17 13:24 Dose: 3 ml Baclofen (Lioresal) 10 mg PO ONETIME ONE Stop: 05/26/17 13:20 Last Admin: 05/26/17 13:35 Dose: 10 mg Baclofen (Lioresal) 10 mg PO TID [facility] Last Admin: 05/26/17 22:21 Dose: 10 mg Benztropine Mesylate (Cogentin) 1 mg PO ONETIME ONE Stop: 05/26/17 13:20 Last Admin: 05/26/17 13:36 Dose: 1 mg Benztropine Mesylate (Cogentin) 0.5 mg PO DAILY@0700 [facility] Last Admin: 05/27/17 06:39 Dose: 0.5 mg Bisacodyl (Dulcolax) 10 mg PO DAILY PRN PRN Reason: Constipation Bisacodyl (Dulcolax) 10 mg RECTAL Q3D [facility] Last Admin: 05/26/17 21:57 Dose: Not Given Carbidopa/Levodopa (Sinemet 25-100 Mg) 1 tab PO ONETIME ONE Stop: 05/26/17 13:20 Last Admin: 05/26/17 13:36 Dose: 1 tab Carbidopa/Levodopa (Sinemet 25-100 Mg) 1 tab PO TID [facility] Last Admin: 05/27/17 03:42 Dose: Not Given Diatrizoate Meglum/Diatrizoate Sod (Gastrografin 37%) 120 ml PO ONETIME ONE Stop: 05/29/17 09:01 Last Admin: 05/29/17 09:00 Dose: 1 bottle Furosemide (Lasix) 20 mg IVPUSH ONETIME ONE Stop: 05/27/17 18:48 Last Admin: 05/28/17 00:20 Dose: 20 mg Furosemide (Lasix) 20 mg IVPUSH ONETIME ONE Stop: 05/27/17 23:29 Last Admin: 05/28/17 00:42 Dose: Not Given Hydromorphone HCl (Dilaudid) 0.5 mg IVPUSH ONETIME ONE Stop: 05/26/17 12:10 Last Admin: 05/26/17 12:17 Dose: 0.5 mg Dextrose/Sodium Chloride (Dextrose 5%-Normal Saline) 1,000 mls @ 999 mls/hr IV ASDIRECTED [facility] Last Admin: 05/26/17 10:55 Dose: 999 mls/hr Levofloxacin/Dextrose 750 mg/ (Premix) 150 mls @ 100 mls/hr IV ONETIME ONE Stop: 05/26/17 12:16 Last Admin: 05/26/17 11:07 Dose: 100 mls/hr Dextrose/Sodium Chloride (Dextrose 5%-Normal Saline) 1,000 mls @ 100 mls/hr IV ASDIRECTED [facility] Last Admin: 05/26/17 12:32 Dose: 100 mls/hr Sodium Chloride (Normal Saline) 1,000 mls @ 125 [facility] Last Admin: 05/27/17 15:36 Dose: 125 mls/hr Levofloxacin/Dextrose 750 mg/ (Premix) 150 mls @ 100 mls/hr IV Q24H [facility] Last Admin: 05/29/17 13:30 Dose: Not Given Sodium Chloride (Normal Saline) 1,000 mls @ 75 mls/hr IV ASDIRECTED [facility] Piperacillin Sod/Tazobactam (Sod 4.5 gm/ Sodium Chloride) 100 mls @ 25 mls/hr IV Q8H [facility] Last Admin: 05/28/17 18:29 Dose: Not Given Sodium Chloride (Normal Saline) 500 mls @ 999 mls/hr IV ONETIME ONE Stop: 05/28/17 00:00 Last Admin: 05/28/17 00:26 Dose: 999 mls/hr Vancomycin HCl 1 gm/ Sodium (Chloride) 250 mls @ 250 mls/hr IV ONETIME ONE Stop: 05/28/17 01:59 Last Admin: 05/28/17 01:01 Dose: 250 mls/hr Piperacillin Sod/Tazobactam (Sod 4.5 gm/ Sodium Chloride) 100 mls @ 200 mls/hr IV ONETIME ONE Stop: 05/28/17 01:14 Last Admin: 05/28/17 02:12 Dose: 200 mls/hr Piperacillin Sod/Tazobactam (Sod 4.5 gm/ Sodium Chloride) 100 mls @ 25 mls/hr IV Q8H [facility] Piperacillin Sod/Tazobactam (Sod 4.5 gm/ Sodium Chloride) 100 mls @ 25 mls/hr IV Q8H [facility] Stop: 05/28/17 12:30 Last Admin: 05/28/17 09:18 Dose: 25 mls/hr Magnesium Sulfate 2 gm/ Premix 50 mls @ 25 mls/hr IV ONETIME ONE Stop: 05/28/17 15:58 Last Admin: 05/28/17 16:49 Dose: 25 mls/hr Non-Formulary Medication (Lactose-Reduced Food/Fiber [Jevity 1.5 Garth Liquid]) 100 mg PO BID [facility] Last Admin: 05/27/17 07:57 Dose: Not Given Ondansetron HCl (Zofran) 4 mg IVPUSH ONETIME ONE Stop: 05/26/17 12:10 Last Admin: 05/26/17 12:16 Dose: 4 mg Propofol (Diprivan 20 Ml) Confirm Administered Dose 200 mg .ROUTE .STK-MED ONE Stop: 05/30/17 07:22 Ropinirole HCl (Requip) 10 mg PO ONETIME ONE Stop: 05/26/17 13:21 Last Admin: 05/26/17 13:56 Dose: Not Given Ropinirole HCl (Ropinirole Hcl) 10 mg PO ONETIME ONE Stop: 05/26/17 14:01 Ropinirole HCl (Requip) 10 mg PO ONETIME ONE Stop: 05/26/17 14:01 Last Admin: 05/26/17 14:03 Dose: 10 mg Ropinirole HCl (Requip) 10 mg PO ONETIME STA Stop: 05/26/17 13:56 Last Admin: 05/26/17 14:17 Dose: Not Given Ropinirole HCl (Requip) 10 mg PO ONETIME ONE Stop: 05/26/17 21:01 Last Admin: 05/26/17 22:21 Dose: 10 mg Senna (Senna) 8.6 mg PO BEDTIME [facility] Last Admin: 05/27/17 05:09 Dose: Not Given Senna/Docusate Sodium (Senna Plus) 1 tab PO BID [facility] Last Admin: 05/26/17 22:21 Dose: 1 tab Tizanidine HCl (Zanaflex) 4 mg PO NOW STA Stop: 05/27/17 08:28 Last Admin: 05/27/17 08:50 Dose: 4 mg
[2017-05-30] MEDS ORDERED: Lidocaine 1% 0 ML ONE (08:19)
[2017-05-30] MEDS ORDERED: Ketamine 500 mg/10 ML MDV ONE (08:19)
--- NOTE | 2017-05-30 08:42 | PCM.CONSN ---
- General Info Date of Service: 05/30/17 Functional Status: Reports: Pain Controlled - Patient Data Vitals - Most Recent: Last Vital Signs Temp 36.8 C 05/30/17 08:15 Pulse 66 05/30/17 08:15 Resp 28 H 05/30/17 08:15 BP 107/65 05/30/17 08:15 Pulse Ox 88 L 05/30/17 08:23 Weight - Most Recent: 95.935 kg I&O - Last 24 Hours: Intake & Output 05/29/17 05/30/17 05/30/17 22:59 06:59 14:59 Intake Total 2064 1625 Output Total 650 550 Balance 1414 1075 Lab Results Last 24 Hours: Laboratory Results - last 24 hr 05/30/17 05/30/17 Range/Units 07:00 07:00 WBC 11.96 H (4.23-9.07) K/mm3 RBC 3.91 L (4.63-6.08) M/mm3 Hgb 12.6 L (13.7-17.5) gm/L Hct 39.2 L (40.1-51.0) % MCV 100.3 H (79.0-92.2) fl MCH 32.2 (25.7-32.2) pg MCHC 32.1 L (32.2-35.5) g/dl RDW Std Deviation 46.4 H (35.1-43.9) fL Plt Count 115 L (163-337) K/mm3 MPV 12.0 (9.4-12.3) fl Neut % (Auto) 84.8 H (34.0-67.9) % Lymph % (Auto) 9.9 L (21.8-53.1) % [place] % (Auto) 4.1 L (5.3-12.2) % Eos % (Auto) 0.7 L (0.8-7.0) Baso % (Auto) 0.2 (0.1-1.2) % Neut # (Auto) 10.15 H (1.78-5.38) K/mm3 Lymph # (Auto) 1.18 L (1.32-3.57) K/mm3 [place] # (Auto) 0.49 (0.30-0.82) K/mm3 Eos # (Auto) 0.08 (0.04-0.54) K/mm3 Baso # (Auto) 0.02 (0.01-0.08) K/mm3 Manual Slide Review Abnormal smear Sodium 149 H (136-145) mEq/L Potassium 3.9 (3.5-5.1) mEq/L Chloride 116 H (98-107) mEq/L Carbon Dioxide 23 (21-32) mEq/L Anion Gap 13.9 (5-15) BUN 20 H (7-18) mg/dL Creatinine 1.1 (0.7-1.3) mg/dL Est Cr Clr Drug Dosing 68.68 mL/min Estimated GFR (MDRD) > 60 (>60) mL/min BUN/Creatinine Ratio 18.2 H (14-18) Glucose 101 (80-115) mg/dL Calcium 8.0 L (8.5-10.1) mg/dL Magnesium 1.8 (1.8-2.4) mg/dl C-Reactive Protein 19.5 H* (<1.0) mg/dL Med Orders - Current: Current Medications Acetaminophen (Tylenol) 650 mg RECTAL Q4H PRN PRN Reason: Pain (mild 1-3) Last Admin: 05/30/17 07:30 Dose: 650 mg Acetaminophen (Tylenol) 650 mg PO Q4H PRN PRN Reason: Pain (Mild 1-3)/fever Last Admin: 05/28/17 08:18 Dose: 650 mg Hydrocodone Bitart/Acetaminophen ([place] 325-5 Mg) 1 tab PO Q4H PRN PRN Reason: Pain (moderate 4-6) Last Admin: 05/29/17 09:26 Dose: 1 tab Albuterol (Proventil Neb Soln) 2.5 mg NEB Q4HRRT PRN PRN Reason: Shortness of Breath Last Admin: 05/29/17 08:37 Dose: 2.5 mg Albuterol/Ipratropium (Duoneb 3.0-0.5 Mg/3 Ml) 3 ml NEB QIDRT [facility] Last Admin: 05/30/17 08:22 Dose: 3 ml Benztropine Mesylate (Cogentin) 1 mg PO DAILY [facility] Last Admin: 05/29/17 09:28 Dose: 1 mg Bisacodyl (Dulcolax) 10 mg RECTAL Q3D PRN PRN Reason: Constipation Calcium Polycarbophil (Fibercon) 1,250 mg PO DAILY@1700 [facility] Last Admin: 05/29/17 16:15 Dose: Not Given Carbidopa/Levodopa (Sinemet 25-100 Mg) 1 tab PO QID [facility] Last Admin: 05/29/17 21:34 Dose: Not Given Enoxaparin Sodium (Lovenox) 40 mg SUBCUT DAILY [facility] Last Admin: 05/29/17 09:28 Dose: 40 mg Hydromorphone HCl (Dilaudid) 0.25 mg IVPUSH Q2H PRN PRN Reason: Pain (severe 7-10) Last Admin: 05/28/17 00:26 Dose: 0.25 mg Sodium Chloride (Normal Saline) 1,000 mls @ 150 mls/hr IV ASDIRECTED [facility] Last Admin: 05/30/17 04:20 Dose: 150 mls/hr Piperacillin Sod/Tazobactam (Sod 4.5 gm/ Sodium Chloride) 100 mls @ 25 mls/hr IV Q8H [facility] Last Admin: 05/30/17 08:32 Dose: 25 mls/hr Vancomycin HCl 1 gm/Vancomycin HCl 250 mg/ Sodium Chloride 250 mls @ 250 mls/ hr IV Q24H [facility] Last Admin: 05/29/17 12:23 Dose: 250 mls/hr Ibuprofen (Motrin) 600 mg PO Q6H PRN PRN Reason: Fever Last Admin: 05/28/17 04:25 Dose: 600 mg Lorazepam (Ativan) 1 mg IVPUSH Q4H PRN PRN Reason: Anxiety Last Admin: 05/30/17 08:26 Dose: 1 mg Lubiprostone (Amitiza) 24 mcg PO DAILY@0700 [facility] Last Admin: 05/29/17 08:06 Dose: Not Given Ondansetron HCl (Zofran Odt) 4 mg PO Q4H PRN PRN Reason: nausea, able to take PO Ondansetron HCl (Zofran) 4 mg IV Q4H PRN PRN Reason: Nausea/Vomiting Pantoprazole Sodium (Protonix) 40 mg PO DAILY@0700 [facility] Last Admin: 05/29/17 08:04 Dose: Not Given Ropinirole HCl (Ropinirole Hcl) 5 mg PO DAILY@1500 [facility] Last Admin: 05/29/17 15:03 Dose: Not Given Ropinirole HCl (Ropinirole Hcl) 10 mg PO BID [facility] Last Admin: 05/29/17 21:35 Dose: Not Given Senna/Docusate Sodium (Senna Plus) 1 tab PO BID [facility] Last Admin: 05/29/17 21:35 Dose: Not Given Tizanidine HCl (Zanaflex) 4 mg PO TID [facility] Last Admin: 05/29/17 21:34 Dose: Not Given Vancomycin HCl (Pharmacy To Dose - Vancomycin) 1 dose .XX ASDIRECTED [facility] Discontinued Medications Acetaminophen (Tylenol) 650 mg RECTAL NOW ONE Stop: 05/26/17 10:39 Last Admin: 05/26/17 10:56 Dose: 650 mg Albuterol/Ipratropium (Duoneb 3.0-0.5 Mg/3 Ml) 3 ml NEB Q4H PRN PRN Reason: Shortness Of Breath/wheezing Last Admin: 05/28/17 13:24 Dose: 3 ml Baclofen (Lioresal) 10 mg PO ONETIME ONE Stop: 05/26/17 13:20 Last Admin: 05/26/17 13:35 Dose: 10 mg Baclofen (Lioresal) 10 mg PO TID [facility] Last Admin: 05/26/17 22:21 Dose: 10 mg Benztropine Mesylate (Cogentin) 1 mg PO ONETIME ONE Stop: 05/26/17 13:20 Last Admin: 05/26/17 13:36 Dose: 1 mg Benztropine Mesylate (Cogentin) 0.5 mg PO DAILY@0700 [facility] Last Admin: 05/27/17 06:39 Dose: 0.5 mg Bisacodyl (Dulcolax) 10 mg PO DAILY PRN PRN Reason: Constipation Bisacodyl (Dulcolax) 10 mg RECTAL Q3D [facility] Last Admin: 05/26/17 21:57 Dose: Not Given Carbidopa/Levodopa (Sinemet 25-100 Mg) 1 tab PO ONETIME ONE Stop: 05/26/17 13:20 Last Admin: 05/26/17 13:36 Dose: 1 tab Carbidopa/Levodopa (Sinemet 25-100 Mg) 1 tab PO TID [facility] Last Admin: 05/27/17 03:42 Dose: Not Given Diatrizoate Meglum/Diatrizoate Sod (Gastrografin 37%) 120 ml PO ONETIME ONE Stop: 05/29/17 09:01 Last Admin: 05/29/17 09:00 Dose: 1 bottle Furosemide (Lasix) 20 mg IVPUSH ONETIME ONE Stop: 05/27/17 18:48 Last Admin: 05/28/17 00:20 Dose: 20 mg Furosemide (Lasix) 20 mg IVPUSH ONETIME ONE Stop: 05/27/17 23:29 Last Admin: 05/28/17 00:42 Dose: Not Given Hydromorphone HCl (Dilaudid) 0.5 mg IVPUSH ONETIME ONE Stop: 05/26/17 12:10 Last Admin: 05/26/17 12:17 Dose: 0.5 mg Dextrose/Sodium Chloride (Dextrose 5%-Normal Saline) 1,000 mls @ 999 mls/hr IV ASDIRECTED [facility] Last Admin: 05/26/17 10:55 Dose: 999 mls/hr Levofloxacin/Dextrose 750 mg/ (Premix) 150 mls @ 100 mls/hr IV ONETIME ONE Stop: 05/26/17 12:16 Last Admin: 05/26/17 11:07 Dose: 100 mls/hr Dextrose/Sodium Chloride (Dextrose 5%-Normal Saline) 1,000 mls @ 100 mls/hr IV ASDIRECTED [facility] Last Admin: 05/26/17 12:32 Dose: 100 mls/hr Sodium Chloride (Normal Saline) 1,000 mls @ 125 mls/hr IV ASDIRECTED [facility] Last Admin: 05/27/17 15:36 Dose: 125 mls/hr Levofloxacin/Dextrose 750 mg/ (Premix) 150 mls @ 100 mls/hr IV Q24H [facility] Last Admin: 05/29/17 13:30 Dose: Not Given Sodium Chloride (Normal Saline) 1,000 mls @ 75 mls/hr IV ASDIRECTED [facility] Piperacillin Sod/Tazobactam (Sod 4.5 gm/ Sodium Chloride) 100 mls @ 25 mls/hr IV Q8H [facility] Last Admin: 05/28/17 18:29 Dose: Not Given Sodium Chloride (Normal Saline) 500 mls @ 999 mls/hr IV ONETIME ONE Stop: 05/28/17 00:00 Last Admin: 05/28/17 00:26 Dose: 999 mls/hr Vancomycin HCl 1 gm/ Sodium (Chloride) 250 mls @ 250 mls/hr IV ONETIME ONE Stop: 05/28/17 01:59 Last Admin: 05/28/17 01:01 Dose: 250 mls/hr Piperacillin Sod/Tazobactam (Sod 4.5 gm/ Sodium Chloride) 100 mls @ 200 mls/hr IV ONETIME ONE Stop: 05/28/17 01:14 Last Admin: 05/28/17 02:12 Dose: 200 mls/hr Piperacillin Sod/Tazobactam (Sod 4.5 gm/ Sodium Chloride) 100 mls @ 25 mls/hr IV Q8H [facility] Piperacillin Sod/Tazobactam (Sod 4.5 gm/ Sodium Chloride) 100 mls @ 25 mls/hr IV Q8H [facility] Stop: 05/28/17 12:30 Last Admin: 05/28/17 09:18 Dose: 25 mls/hr Magnesium Sulfate 2 gm/ Premix 50 mls @ 25 mls/hr IV ONETIME ONE Stop: 05/28/17 15:58 Last Admin: 05/28/17 16:49 Dose: 25 mls/hr Lidocaine HCl (Xylocaine-Mpf 1%) Confirm Administered Dose 4 mls @ as directed .ROUTE .STK-MED ONE Stop: 05/30/17 08:20 Ketamine HCl (Ketalar) Confirm Administered Dose 500 mg .ROUTE .STK-MED ONE Stop: 05/30/17 08:20 Non-Formulary Medication (Lactose-Reduced Food/Fiber [Jevity 1.5 Garth Liquid]) 100 mg PO BID [facility] Last Admin: 05/27/17 07:57 Dose: Not Given Ondansetron HCl (Zofran) 4 mg IVPUSH ONETIME ONE Stop: 05/26/17 12:10 Last Admin: 05/26/17 12:16 Dose: 4 mg Propofol (Diprivan 20 Ml) Confirm Administered Dose 200 mg .ROUTE .STK-MED ONE Stop: 05/30/17 07:22 Propofol (Diprivan 20 Ml) Confirm Administered Dose 200 mg .ROUTE .STK-MED ONE Stop: 05/30/17 08:20 Ropinirole HCl (Requip) 10 mg PO ONETIME ONE Stop: 05/26/17 13:21 Last Admin: 05/26/17 13:56 Dose: Not Given Ropinirole HCl (Ropinirole Hcl) 10 mg PO ONETIME ONE Stop: 05/26/17 14:01 Ropinirole HCl (Requip) 10 mg PO ONETIME ONE Stop: 05/26/17 14:01 Last Admin: 05/26/17 14:03 Dose: 10 mg Ropinirole HCl (Requip) 10 mg PO ONETIME STA Stop: 05/26/17 13:56 Last Admin: 05/26/17 14:17 Dose: Not Given Ropinirole HCl (Requip) 10 mg PO ONETIME ONE Stop: 05/26/17 21:01 Last Admin: 05/26/17 22:21 Dose: 10 mg Senna (Senna) 8.6 mg PO BEDTIME [facility] Last Admin: 05/27/17 05:09 Dose: Not Given Senna/Docusate Sodium (Senna Plus) 1 tab PO BID [facility] Last Admin: 05/26/17 22:21 Dose: 1 tab Tizanidine HCl (Zanaflex) 4 mg PO NOW STA Stop: 05/27/17 08:28 Last Admin: 05/27/17 08:50 Dose: 4 mg Consult PN Assessment/Plan Procedures: Procedures ASSAY OF CK (CPK) (03/21/16) ASSAY OF LACTIC ACID (02/07/17) ASSAY OF MAGNESIUM (02/07/17) ASSAY OF NATRIURETIC PEPTIDE (07/01/16) ASSAY OF TROPONIN QUANT (02/07/17) ASSAY OF VANCOMYCIN (07/01/16) ASSAY THYROID STIM HORMONE (07/01/16) BLOOD CULTURE FOR BACTERIA (02/07/17) C DIFF AMPLIFIED PROBE (02/21/16) C-REACTIVE PROTEIN (02/07/17) CHANGE GASTROSTOMY TUBE (04/02/17) CHEST X-RAY 1 VIEW FRONTAL (02/07/17) CHEST X-RAY 2VW FRONTAL&LATL (07/01/16) CINE/VID X-RAY THROAT/ESOPH (10/20/16) COMPLETE CBC AUTOMATED (07/01/16) COMPLETE CBC W/AUTO DIFF WBC (02/07/17) COMPREHEN METABOLIC PANEL (02/07/17) CT HEAD/BRAIN W/O DYE (02/07/17) CT THORAX W/O DYE (03/21/16) CULTURE AEROBIC IDENTIFY (02/07/17) CULTURE OTHR SPECIMN AEROBIC (03/21/16) ELECTROCARDIOGRAM TRACING (07/01/16) EMERGENCY DEPT VISIT (04/02/17) EMERGENCY DEPT VISIT (09/30/13) EVALUATE PT USE OF INHALER (03/21/16) EVALUATE SWALLOWING FUNCTION (02/07/17) EXTREMITY STUDY (03/21/16) FIBRIN DEGRADATION QUANT (03/21/16) HYDRATE IV INFUSION ADD-ON (05/09/16) HYDRATION IV INFUSION INIT (05/09/16) INFLUENZA ASSAY W/OPTIC (07/01/16) MEASURE BLOOD OXYGEN LEVEL (03/21/16) METABOLIC PANEL TOTAL CA (02/07/17) MICROBE SUSCEPTIBLE ANGIE (02/07/17) MOTION FLUOROSCOPY/SWALLOW (10/20/16) MR-STAPH DNA AMP PROBE (02/07/17) MYCOPLASMA ANTIBODY (07/01/16) ORAL FUNCTION THERAPY (07/01/16) OT EVAL HIGH COMPLEX 60 MIN (02/07/17) OT EVALUATION (03/21/16) PROTHROMBIN TIME (03/21/16) PT EVAL HIGH COMPLEX 45 MIN (07/01/16) PT EVAL MOD COMPLEX 30 MIN (02/07/17) PT EVALUATION (03/21/16) RBC SED RATE AUTOMATED (10/17/15) RMVL DEVITAL TIS 20 CM/< (07/01/16) ROUTINE VENIPUNCTURE (02/07/17) THER/PROPH/DIAG IV INF INIT (02/07/17) THERAPEUTIC ACTIVITIES (02/07/17) THROMBOPLASTIN TIME PARTIAL (03/21/16) TTE W/DOPPLER COMPLETE (07/01/16) TX/PRO/DX INJ NEW DRUG ADDON (02/07/17) URINALYSIS AUTO W/SCOPE (02/07/17) URINE BACTERIA CULTURE (02/07/17) URINE CULTURE/COLONY COUNT (02/07/17) US EXAM ABDO BACK WALL COMP (03/21/16) VANOMYCIN DNA AMP PROBE (02/21/16) (1) PEG tube malfunction SNOMED Code(s): 377458692 Code(s): 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 Patient's spouse is undecided as to whether we should proceed towards a procedure such as an esophagogastroduodenoscopy with the high risk of possible intubation which she is against versus hospice care. She is tired from lack of sleep and apparently will be in later this afternoon. In the meantime I have canceled his procedure until these very important disposition and medical details are sorted out. The hospitalist will meet with the family members later today. Anesthesia and I will be standing by for further instructions. Problem List Initiated/Reviewed/Updated: Yes My Orders Last 24 Hours: My Active Orders 05/29/17 09:18 PEG Tube Management [Percutaneous Endoscopic Gastostomy Tube] [OM.PC] Routine 05/29/17 13:15 Communication Order [RC] 08 05/29/17 13:32 Schedule Procedure [COMM] Routine 05/29/17 Dinner NPO After Midnight [Nothing per Oral After Midnight Diet] [DIET] 05/30/17 08:00 Verify Patient Consent Obtain [RC] ASDIRECTED Plan: Awaiting input from the family
[2017-05-30] MEDS: Carbidopa/Levodopa 25-100 MG Tab PO SCH ×2 (09:20→12:01)
[2017-05-30] MEDS: Pantoprazole 40 MG Tab.CR PO SCH (09:20)
[2017-05-30] MEDS: tiZANidine 4 MG Tab PO SCH (09:20)
[2017-05-30] MEDS: Lubiprostone 24 MCG Cap PO SCH (09:20)
[2017-05-30] MEDS: Benztropine 1 MG Tab PO SCH (09:20)
[2017-05-30 09:52] VITALS: BP 133/80
[2017-05-30] MEDS: Enoxaparin 40 MG/0.4 ML Syringe SUBCUT SCH (10:26)
[2017-05-30] MEDS: HYDROmorphone 0.5 MG/0.5 ML Syringe IVPUSH PRN (11:02)
[2017-05-30] MEDS: Albuterol 0.083% 2.5 MG/3 ML Neb Soln NEB PRN (11:06)
[2017-05-30] MEDS ORDERED: Furosemide 40 MG/4 ML VIAL IVPUSH ONE (11:22)
[2017-05-30] MEDS ORDERED: Morphine 10 MG/ML Syringe IVPUSH ONE (11:29)
[2017-05-30] MEDS ORDERED: LORazepam 2 MG/ML MDV IVPUSH ONE (11:30)
[2017-05-30] MEDS: Vancomycin 1 GM, Vancomycin 250 MG in Sodium Chloride 0.9% 250 ML IV SCH (11:41)
[2017-05-30] MEDS: Morphine 2 MG/ML Syringe IVPUSH SCH ×10 (13:23→23:00)
--- NOTE | 2017-05-30 13:25 | PCM.PN ---
- General Info Date of Service: 05/30/17 Subjective Update: PT IS UNRESPONSIVE DIFFICULTY BREATHING FAMILY MEETING -->COMFORT CARE , STOP BIPAP - Patient Data Vitals - Most Recent: Last Vital Signs Temp 98.1 F 05/30/17 09:41 Pulse 84 05/30/17 09:41 Resp 22 H 05/30/17 09:41 BP 133/80 05/30/17 09:41 Pulse Ox 90 L 05/30/17 11:08 Weight - Most Recent: 211 lb 8 oz I&O - Last 24 Hours: Intake & Output 05/29/17 05/30/17 05/30/17 22:59 06:59 14:59 Intake Total 2064 1625 Output Total 650 550 Balance 1414 1075 Lab Results Last 24 Hours: Laboratory Results - last 24 hr 05/30/17 05/30/17 Range/Units 07:00 07:00 WBC 11.96 H (4.23-9.07) K/mm3 RBC 3.91 L (4.63-6.08) M/mm3 Hgb 12.6 L (13.7-17.5) gm/L Hct 39.2 L (40.1-51.0) % MCV 100.3 H (79.0-92.2) fl MCH 32.2 (25.7-32.2) pg MCHC 32.1 L (32.2-35.5) g/dl RDW Std Deviation 46.4 H (35.1-43.9) fL Plt Count 115 L (163-337) K/mm3 MPV 12.0 (9.4-12.3) fl Neut % (Auto) 84.8 H (34.0-67.9) % Lymph % (Auto) 9.9 L (21.8-53.1) % [place] % (Auto) 4.1 L (5.3-12.2) % Eos % (Auto) 0.7 L (0.8-7.0) Baso % (Auto) 0.2 (0.1-1.2) % Neut # (Auto) 10.15 H (1.78-5.38) K/mm3 Lymph # (Auto) 1.18 L (1.32-3.57) K/mm3 [place] # (Auto) 0.49 (0.30-0.82) K/mm3 Eos # (Auto) 0.08 (0.04-0.54) K/mm3 Baso # (Auto) 0.02 (0.01-0.08) K/mm3 Manual Slide Review Abnormal smear Sodium 149 H (136-145) mEq/L Potassium 3.9 (3.5-5.1) mEq/L Chloride 116 H (98-107) mEq/L Carbon Dioxide 23 (21-32) mEq/L Anion Gap 13.9 (5-15) BUN 20 H (7-18) mg/dL Creatinine 1.1 (0.7-1.3) mg/dL Est Cr Clr Drug Dosing 68.68 mL/min Estimated GFR (MDRD) > 60 (>60) mL/min BUN/Creatinine Ratio 18.2 H (14-18) Glucose 101 (80-115) mg/dL Calcium 8.0 L (8.5-10.1) mg/dL Magnesium 1.8 (1.8-2.4) mg/dl C-Reactive Protein 19.5 H* (<1.0) mg/dL Brian Results Last 24 Hours: Microbiology 05/29/17 11:30 Aerobic Blood Culture - Preliminary Blood - Venous - Lab Draw NO GROWTH AFTER 1 DAY Anaerobic Blood Culture - Preliminary NO GROWTH AFTER 1 DAY 05/29/17 11:17 Aerobic Blood Culture - Preliminary Blood - Venous NO GROWTH AFTER 1 DAY Anaerobic Blood Culture - Preliminary NO GROWTH AFTER 1 DAY Med Orders - Current: Current Medications Acetaminophen (Tylenol) 650 mg RECTAL Q4H PRN PRN Reason: Pain (mild 1-3) Last Admin: 05/30/17 07:30 Dose: 650 mg Bisacodyl (Dulcolax) 10 mg RECTAL Q3D PRN PRN Reason: Constipation Lorazepam (Ativan) 1 mg IVPUSH Q1H PRN PRN Reason: Anxiety Morphine Sulfate (Morphine) 2 mg IVPUSH Q1H MYAH Ondansetron HCl (Zofran) 4 mg IV Q4H PRN PRN Reason: Nausea/Vomiting Discontinued Medications Acetaminophen (Tylenol) 650 mg RECTAL NOW ONE Stop: 05/26/17 10:39 Last Admin: 05/26/17 10:56 Dose: 650 mg Acetaminophen (Tylenol) 650 mg PO Q4H PRN PRN Reason: Pain (Mild 1-3)/fever Last Admin: 05/28/17 08:18 Dose: 650 mg Hydrocodone Bitart/Acetaminophen ([place] 325-5 Mg) 1 tab PO Q4H PRN PRN Reason: Pain (moderate 4-6) Last Admin: 05/29/17 09:26 Dose: 1 tab Albuterol (Proventil Neb Soln) 2.5 mg NEB Q4HRRT PRN PRN Reason: Shortness of Breath Last Admin: 05/30/17 11:06 Dose: 2.5 mg Albuterol/Ipratropium (Duoneb 3.0-0.5 Mg/3 Ml) 3 ml NEB Q4H PRN PRN Reason: Shortness Of Breath/wheezing Last Admin: 05/28/17 13:24 Dose: 3 ml Albuterol/Ipratropium (Duoneb 3.0-0.5 Mg/3 Ml) 3 ml NEB QIDRT [facility] Last Admin: 05/30/17 09:03 Dose: Not Given Baclofen (Lioresal) 10 mg PO ONETIME ONE Stop: 05/26/17 13:20 Last Admin: 05/26/17 13:35 Dose: 10 mg Baclofen (Lioresal) 10 mg PO TID [facility] Last Admin: 05/26/17 22:21 Dose: 10 mg Benztropine Mesylate (Cogentin) 1 mg PO ONETIME ONE Stop: 05/26/17 13:20 Last Admin: 05/26/17 13:36 Dose: 1 mg Benztropine Mesylate (Cogentin) 0.5 mg PO DAILY@0700 [facility] Last Admin: 05/27/17 06:39 Dose: 0.5 mg Benztropine Mesylate (Cogentin) 1 mg PO DAILY [facility] Last Admin: 05/30/17 09:20 Dose: Not Given Bisacodyl (Dulcolax) 10 mg PO DAILY PRN PRN Reason: Constipation Bisacodyl (Dulcolax) 10 mg RECTAL Q3D [facility] Last Admin: 05/26/17 21:57 Dose: Not Given Calcium Polycarbophil (Fibercon) 1,250 mg PO DAILY@1700 [facility] Last Admin: 05/29/17 16:15 Dose: Not Given Carbidopa/Levodopa (Sinemet 25-100 Mg) 1 tab PO ONETIME ONE Stop: 05/26/17 13:20 Last Admin: 05/26/17 13:36 Dose: 1 tab Carbidopa/Levodopa (Sinemet 25-100 Mg) 1 tab PO TID [facility] Last Admin: 05/27/17 03:42 Dose: Not Given Carbidopa/Levodopa (Sinemet 25-100 Mg) 1 tab PO QID [facility] Last Admin: 05/30/17 12:01 Dose: Not Given Diatrizoate Meglum/Diatrizoate Sod (Gastrografin 37%) 120 ml PO ONETIME ONE Stop: 05/29/17 09:01 Last Admin: 05/29/17 09:00 Dose: 1 bottle Enoxaparin Sodium (Lovenox) 40 mg SUBCUT DAILY [facility] Last Admin: 05/30/17 10:26 Dose: Not Given Furosemide (Lasix) 20 mg IVPUSH ONETIME ONE Stop: 05/27/17 18:48 Last Admin: 05/28/17 00:20 Dose: 20 mg Furosemide (Lasix) 20 mg IVPUSH ONETIME ONE Stop: 05/27/17 23:29 Last Admin: 05/28/17 00:42 Dose: Not Given Furosemide (Lasix) 40 mg IVPUSH NOW ONE Stop: 05/30/17 11:23 Last Admin: 05/30/17 11:35 Dose: 40 mg Hydromorphone HCl (Dilaudid) 0.5 mg IVPUSH ONETIME ONE Stop: 05/26/17 12:10 Last Admin: 05/26/17 12:17 Dose: 0.5 mg Hydromorphone HCl (Dilaudid) 0.25 mg IVPUSH Q2H PRN PRN Reason: Pain (severe 7-10) Last Admin: 05/30/17 11:02 Dose: 0.25 mg Dextrose/Sodium Chloride (Dextrose 5%-Normal Saline) 1,000 mls @ 999 mls/hr IV ASDIRECTED [facility] Last Admin: 05/26/17 10:55 Dose: 999 mls/hr Levofloxacin/Dextrose 750 mg/ (Premix) 150 mls @ 100 mls/hr IV ONETIME ONE Stop: 05/26/17 12:16 Last Admin: 05/26/17 11:07 Dose: 100 mls/hr Dextrose/Sodium Chloride (Dextrose 5%-Normal Saline) 1,000 mls @ 100 mls/hr IV ASDIRECTED [facility] Last Admin: 05/26/17 12:32 Dose: 100 mls/hr Sodium Chloride (Normal Saline) 1,000 mls @ 125 mls/hr IV ASDIRECTED [facility] Last Admin: 05/27/17 15:36 Dose: 125 mls/hr Levofloxacin/Dextrose 750 mg/ (Premix) 150 mls @ 100 mls/hr IV Q24H [facility] Last Admin: 05/29/17 13:30 Dose: Not Given Sodium Chloride (Normal Saline) 1,000 mls @ 75 mls/hr IV ASDIRECTED [facility] Piperacillin Sod/Tazobactam (Sod 4.5 gm/ Sodium Chloride) 100 mls @ 25 mls/hr IV Q8H [facility] Last Admin: 05/28/17 18:29 Dose: Not Given Sodium Chloride (Normal Saline) 500 mls @ 999 mls/hr IV ONETIME ONE Stop: 05/28/17 00:00 Last Admin: 05/28/17 00:26 Dose: 999 mls/hr Sodium Chloride (Normal Saline) 1,000 [facility]ls [facility] Admin: 05/30/17 11:00 Dose: 150 mls/hr Vancomycin HCl 1 gm/ Sodium (Chloride) 250 mls @ 250 mls/hr IV ONETIME ONE Stop: 05/28/17 01:59 Last Admin: 05/28/17 01:01 Dose: 250 mls/hr Piperacillin Sod/Tazobactam (Sod 4.5 gm/ Sodium Chloride) 100 mls @ 200 mls/hr IV ONETIME ONE Stop: 05/28/17 01:14 Last Admin: 05/28/17 02:12 Dose: 200 mls/hr Piperacillin Sod/Tazobactam (Sod 4.5 gm/ Sodium Chloride) 100 mls @ 25 mls/hr IV Q8H [facility] Piperacillin Sod/Tazobactam (Sod 4.5 gm/ Sodium Chloride) 100 mls @ 25 mls/hr IV Q8H [facility] Stop: 05/28/17 12:30 Last Admin: 05/28/17 09:18 Dose: 25 mls/hr Piperacillin Sod/Tazobactam (Sod 4.5 gm/ Sodium Chloride) 100 mls @ 25 mls/hr IV Q8H [facility] Last Admin: 05/30/17 08:32 Dose: 25 mls/hr Vancomycin HCl 1 gm/Vancomycin HCl 250 mg/ Sodium Chloride 250 mls @ 250 mls/ hr IV Q24H [facility] Last Admin: 05/30/17 11:41 Dose: Not Given Magnesium Sulfate 2 gm/ Premix 50 mls @ 25 mls/hr IV ONETIME ONE Stop: 05/28/17 15:58 Last Admin: 05/28/17 16:49 Dose: 25 mls/hr Lidocaine HCl (Xylocaine-Mpf 1%) Confirm Administered Dose 4 mls @ as directed .ROUTE .STK-MED ONE Stop: 05/30/17 08:20 Ibuprofen (Motrin) 600 mg PO Q6H PRN PRN Reason: Fever Last Admin: 05/28/17 04:25 Dose: 600 mg Ketamine HCl (Ketalar) Confirm Administered Dose 500 mg .ROUTE .STK-MED ONE Stop: 05/30/17 08:20 Lorazepam (Ativan) 1 mg IVPUSH Q4H PRN PRN Reason: Anxiety Last Admin: 05/30/17 08:26 Dose: 1 mg Lorazepam (Ativan) 2 mg IVPUSH ONETIME ONE Stop: 05/30/17 11:31 Last Admin: 05/30/17 11:37 Dose: 2 mg Lubiprostone (Amitiza) 24 mcg PO DAILY@0700 [facility] Last Admin: 05/30/17 09:20 Dose: Not Given Morphine Sulfate (Morphine) 5 mg IVPUSH ONETIME ONE Stop: 05/30/17 11:30 Last Admin: 05/30/17 11:34 Dose: 5 mg Non-Formulary Medication (Lactose-Reduced Food/Fiber [Jevity 1.5 Garth Liquid]) 100 mg PO BID [facility] Last Admin: 05/27/17 07:57 Dose: Not Given Ondansetron HCl (Zofran) 4 mg IVPUSH ONETIME ONE Stop: 05/26/17 12:10 Last Admin: 05/26/17 12:16 Dose: 4 mg Ondansetron HCl (Zofran Odt) 4 mg PO Q4H PRN PRN Reason: nausea, able to take PO Pantoprazole Sodium (Protonix) 40 mg PO DAILY@0700 [facility] Last Admin: 05/30/17 09:20 Dose: Not Given Propofol (Diprivan 20 Ml) Confirm Administered Dose 200 mg .ROUTE .STK-MED ONE Stop: 05/30/17 07:22 Propofol (Diprivan 20 Ml) Confirm Administered Dose 200 mg .ROUTE .STK-MED ONE Stop: 05/30/17 08:20 Ropinirole HCl (Requip) 10 mg PO ONETIME ONE Stop: 05/26/17 13:21 Last Admin: 05/26/17 13:56 Dose: Not Given Ropinirole HCl (Ropinirole Hcl) 10 mg PO ONETIME ONE Stop: 05/26/17 14:01 Ropinirole HCl (Requip) 10 mg PO ONETIME ONE Stop: 05/26/17 14:01 Last Admin: 05/26/17 14:03 Dose: 10 mg Ropinirole HCl (Requip) 10 mg PO ONETIME STA Stop: 05/26/17 13:56 Last Admin: 05/26/17 14:17 Dose: Not Given Ropinirole HCl (Ropinirole Hcl) 5 mg PO DAILY@1500 [facility] Last Admin: 05/29/17 15:03 Dose: Not Given Ropinirole HCl (Ropinirole Hcl) 10 mg PO BID [facility] Last Admin: 05/30/17 09:20 Dose: Not Given Ropinirole HCl (Requip) 10 mg PO ONETIME ONE Stop: 05/26/17 21:01 Last Admin: 05/26/17 22:21 Dose: 10 mg Senna (Senna) 8.6 mg PO BEDTIME [facility] Last Admin: 05/27/17 05:09 Dose: Not Given Senna/Docusate Sodium (Senna Plus) 1 tab PO BID [facility] Last Admin: 05/26/17 22:21 Dose: 1 tab Senna/Docusate Sodium (Senna Plus) 1 tab PO BID [facility] Last Admin: 05/30/17 09:20 Dose: Not Given Tizanidine HCl (Zanaflex) 4 mg PO NOW STA Stop: 05/27/17 08:28 Last Admin: 05/27/17 08:50 Dose: 4 mg Tizanidine HCl (Zanaflex) 4 mg PO TID [facility] Last Admin: 05/30/17 09:20 Dose: Not Given Vancomycin HCl (Pharmacy To Dose - Vancomycin) 1 dose .XX ASDIRECTED [facility] - Exam General: Obtunded Neck: Supple Lungs: Crackles, Rhonchi Cardiovascular: Regular Rate, Regular Rhythm GI/Abdominal Exam: Normal Bowel Sounds, Soft, Non-Tender, No Organomegaly, No Distention, No Abnormal Bruit, No Mass, Pelvis Stable Extremities: Pedal Edema - Problem List Review Problem List Initiated/Reviewed/Updated: Yes - My Orders Last 24 Hours: My Active Orders 05/30/17 13:03 Resuscitation Status Routine 05/30/17 13:13 LORazepam [Ativan] 1 mg IVPUSH Q1H PRN 05/30/17 13:15 Morphine 2 mg IVPUSH Q1H - Plan Plan:: I/P: SEPSIS AUTI with fever -Risk factors: chronic indwelling marshall catheter, hx urinary outflow obstruction, neurogenic bladder, immobility, neurologic disease (progressive supranuclear palsy), 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) -Prior UC in 01/2017 was with 4 organisms -Citerobacter Freundii, Staph Aureus, Pseudomnas and Enteroccus- 3/4 were sensitive to levaquin -IV hydration -Antipyretics PRN -Marshall cath changed in ED; UA obtained from new cath; tip from old cath sent to lab for culture -Florastor Aspiration risk with PSNP -meds per peg tube at this time -RECEPTIONIST eval and tx; NPO at this time until further eval -Cont PPI -Coin Purse Framer consult for tube feeding rate/volume--discussed with her this morning. 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 -Discussed case with Dr. Malagon this morning; med changes/adjustments for increased rigidity; increase sinemet, cogentin and trial of zanaflex, cont close monitoring of rigidity. Neurogenic bladder (due to above) with chronic indwelling marshall catheter HTN- stable HLD CAD Depression Hx graves disease Hx venous stasis dermatitis--chronic skin changes to LE on exam today; no new acute findings. pLAN: -DISCUSS IT WITH FAMILY, PT IS GETTING WORSE, UNABLE TO WEAN OFF BIPAP, FAMILY ELECTED COMFORT CARE, WE GOING TO START ATIVAN AND MORPHINE IV, PT LOST HIS J- TUBE. POOR PROGNOSIS PCP is Dr. Malagon with [facility] in [place].
--- NOTE | 2017-05-31 09:47 | PCM.DCSUM1 ---
Discharge Summary - Hospital Course Free Text/Narrative:: Kameron is a 71yo male, resident at [facility] brought into ED via ambulance for fever. Onset of illness is unknown. 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 He is resting comfortably at time of my visit/exam. Information is obtained from [place] records and ED reports. ED evaluation shows slight elevation of WBC at 12.44, H&H WNL,macrocytosis with MCV of 98.7 and MCH of 32.4 (this has been chronic by chart review), plt 121. PT 12.1, INR 1.10, CMP with cl- of 109, AG 16.0, BUN 30, creat 1.3, GFR 55, AST 39, ALT 13, Total bili 4.5, all other indicies on CMP are normal, troponin negative. ABG with PH of 7.43, pCO2 34.1, pO2 73.0, HCo3 22.1, BE 1.1. Unremarkable CXR for acute findings. UA is positive with orange color, SG 1.025 , 2+ protein, 1+ ketones, trace blood, 1+ bili, trace leuks and 20-30 WBC's. Urine collection is obtained after new marshall catheter inserted. Tip of old marshall is also sent to lab for culture in ED. Chart review shows that last admission in January of this year patient had UTI with 4 organisms growing- Citrobacter Freundii, Staph Aureus, Pseudomonas Aeruginosa and Enterococcus Fecalis- first 3 organisms were sensitive to Levaquin, last sensitive to Vancomycin. He does have hx of MRSA infection in the past. PMH is significant for PSNP/PD, HTN, HLD, CAD, recurrent pneumonia/aspiration pneumonia, neurogenic bladder with chronic retention and marshall catheter, aphagia /aphasia, depression, graves disease, venous stasis dermatitis. Hospitalist service is consulted for admission for Fever, likely AUTI and early sepsis. Patient is DNR/DNI code status. PCP is Dr. Malagon with [facility] in [place] - Discharge Data Discharge Date: 05/31/17 Discharge Disposition: 20 Preliminary Cause of *Q: Sepsis & Multi System Organ Failure Condition: - Patient Summary/Data Operative Procedure(s) Performed: PEG tube repositioning with assessment Consults: Consultations 05/26/17 20:08 Consult to Case Management [CONS] Routine Consult to Back Tacker [CONS] Routine 05/26/17 21:34 Consult to Senior Sql Database Developer [CONS] Routine 05/29/17 07:30 Consult to Physician [CONS] Routine Hospital Course: SEPSIS AUTI with fever -Risk factors: chronic indwelling marshall catheter, hx urinary outflow obstruction, neurogenic bladder, immobility, neurologic disease (progressive supranuclear palsy), 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) -Prior UC in 01/2017 was with 4 organisms -Citerobacter Freundii, Staph Aureus, Pseudomnas and Enteroccus- 3/4 were sensitive to levaquin -IV hydration -Antipyretics PRN -Marshall cath changed in ED; UA obtained from new cath; tip from old cath sent to lab for culture -Florastor Aspiration risk with PSNP -meds per peg tube at this time -AUTOMATION TEST ENGINEER eval and tx; NPO at this time until further eval -Cont PPI -Senior Sql Database Developer consult for tube feeding rate/volume--discussed with her this morning. Empiric treatment for HCAP- query LLL infiltrate Chronic conditions: PSNP- with aphasia and aphagia with PEG tube in place- AUTOMATION TEST ENGINEER eval as above. -Discussed case with Dr. Malagon this morning; med changes/adjustments for increased rigidity; increase sinemet, cogentin and trial of zanaflex, cont close monitoring of rigidity. Neurogenic bladder (due to above) with chronic indwelling marshall catheter HTN- stable HLD CAD Depression Hx graves disease Hx venous stasis dermatitis--chronic skin changes to LE on exam today; no new acute findings. pLAN: -DISCUSS IT WITH FAMILY, PT IS GETTING WORSE, UNABLE TO WEAN OFF BIPAP, FAMILY ELECTED COMFORT CARE, WE GOING TO START ATIVAN AND MORPHINE IV, PT LOST HIS J- TUBE. POOR PROGNOSIS pt at 23:20 05/30/2017 under comfort care - Discharge Plan Home Medications: Home Meds Bisacodyl [Dulcolax] 10 mg RECTAL Q3D PRN 03/21/16 [History] Triamcinolone Acetonide [Triamcinolone Acetonide 0.5%] 1 applic TOP BID PRN [History] rOPINIRole HCl [Requip] 10 mg PO 07/01/16 [History] rOPINIRole HCl [rOPINIRole] 5 mg PO DAILY@1500 02/07/17 [History] Baclofen 10 mg PO TID 05/26/17 [History] Benztropine [Cogentin] 0.5 mg PO 07 05/26/17 [History] Calcium Polycarbophil [Fibercon] 2 tab PO 17 05/26/17 [History] Carbidopa/Levodopa [Sinemet 25-100 mg] 1 tab PO TID 05/26/17 [History] Lactose-Reduced Food/Fiber [Jevity 1.5 Garth Liquid] 100 mg PO BID 05/26/17 [ History] Lansoprazole [Prevacid] 30 mg PO DAILY 05/26/17 [History] Lidocaine 5% 1 applic TOP BID 05/26/17 [History] Lubiprostone [Amitiza] 24 mcg PO 07 05/26/17 [History] Patient Handouts: Fever, Adult, Catheter-Associated Urinary Tract Infection FAQs - [place], Urinary Tract Infection, Adult, [id number] Forms: ED Department Discharge Referrals: Juan C Cisneros MD [Primary Care Provider] - - Discharge Summary/Plan Comment DC Time >30 min.: Yes - Patient Data Vitals - Most Recent: Last Vital Signs Temp 98.1 F 05/30/17 09:41 Pulse 84 05/30/17 09:41 Resp 22 H 05/30/17 09:41 BP 133/80 05/30/17 09:41 Pulse Ox 90 L 05/30/17 11:08 Weight - Most Recent: 211 lb 8 oz I&O - Last 24 hours: Intake & Output 05/30/17 05/31/17 05/31/17 22:59 06:59 14:59 Intake Total 50 Output Total 4450 Balance -4400 ANGIE Results - Last 24 hrs: Microbiology 05/28/17 19:14 Streptococcus pneumoniae Antigen (M - Final Urine 05/27/17 23:15 Respiratory Virus Panel (PCR) (ANGIE) - Final Nasopharyngeal Swab - Nare, Left 05/29/17 11:30 Aerobic Blood Culture - Preliminary Blood - Venous - Lab Draw NO GROWTH AFTER 1 DAY Anaerobic Blood Culture - Preliminary NO GROWTH AFTER 1 DAY 05/29/17 11:17 Aerobic Blood Culture - Preliminary Blood - Venous NO GROWTH AFTER 1 DAY Anaerobic Blood Culture - Preliminary NO GROWTH AFTER 1 DAY Med Orders - Current: Current Medications Discontinued Medications Acetaminophen (Tylenol) 650 mg RECTAL NOW ONE Stop: 05/26/17 10:39 Last Admin: 05/26/17 10:56 Dose: 650 mg Acetaminophen (Tylenol) 650 mg RECTAL Q4H PRN PRN Reason: Pain (mild 1-3) Last Admin: 05/30/17 07:30 Dose: 650 mg Acetaminophen (Tylenol) 650 mg PO Q4H PRN PRN Reason: Pain (Mild 1-3)/fever Last Admin: 05/28/17 08:18 Dose: 650 mg Hydrocodone Bitart/Acetaminophen (Lefor 325-5 Mg) 1 tab PO Q4H PRN PRN Reason: Pain (moderate 4-6) Last Admin: 05/29/17 09:26 Dose: 1 tab Albuterol (Proventil Neb Soln) 2.5 mg NEB Q4HRRT PRN PRN Reason: Shortness of Breath Last Admin: 05/30/17 11:06 Dose: 2.5 mg Albuterol/Ipratropium (Duoneb 3.0-0.5 Mg/3 Ml) 3 ml NEB Q4H PRN PRN Reason: Shortness Of Breath/wheezing Last Admin: 05/28/17 13:24 Dose: 3 ml Albuterol/Ipratropium (Duoneb 3.0-0.5 Mg/3 Ml) 3 ml NEB QIDRT [facility] Last Admin: 05/30/17 09:03 Dose: Not Given Baclofen (Lioresal) 10 mg PO ONETIME ONE Stop: 05/26/17 13:20 Last Admin: 05/26/17 13:35 Dose: 10 mg Baclofen (Lioresal) 10 mg PO TID [facility] Last Admin: 05/26/17 22:21 Dose: 10 mg Benztropine Mesylate (Cogentin) 1 mg PO ONETIME ONE Stop: 05/26/17 13:20 Last Admin: 05/26/17 13:36 Dose: 1 mg Benztropine Mesylate (Cogentin) 0.5 mg PO DAILY@0700 [facility] Last Admin: 05/27/17 06:39 Dose: 0.5 mg Benztropine Mesylate (Cogentin) 1 mg PO DAILY [facility] Last Admin: 05/30/17 09:20 Dose: Not Given Bisacodyl (Dulcolax) 10 mg PO DAILY PRN PRN Reason: Constipation Bisacodyl (Dulcolax) 10 mg RECTAL Q3D [facility] Last Admin: 05/26/17 21:57 Dose: Not Given Bisacodyl (Dulcolax) 10 mg RECTAL Q3D PRN PRN Reason: Constipation Calcium Polycarbophil (Fibercon) 1,250 mg PO DAILY@1700 [facility] Last Admin: 05/29/17 16:15 Dose: Not Given Carbidopa/Levodopa (Sinemet 25-100 Mg) 1 tab PO ONETIME ONE Stop: 05/26/17 13:20 Last Admin: 05/26/17 13:36 Dose: 1 tab Carbidopa/Levodopa (Sinemet 25-100 Mg) 1 tab PO TID [facility] Last Admin: 05/27/17 03:42 Dose: Not Given Carbidopa/Levodopa (Sinemet 25-100 Mg) 1 tab PO QID [facility] Last Admin: 05/30/17 12:01 Dose: Not Given Diatrizoate Meglum/Diatrizoate Sod (Gastrografin 37%) 120 ml PO ONETIME ONE Stop: 05/29/17 09:01 Last Admin: 05/29/17 09:00 Dose: 1 bottle Enoxaparin Sodium (Lovenox) 40 mg SUBCUT DAILY [facility] Last Admin: 05/30/17 10:26 Dose: Not Given Furosemide (Lasix) 20 mg IVPUSH ONETIME ONE Stop: 05/27/17 18:48 Last Admin: 05/28/17 00:20 Dose: 20 mg Furosemide (Lasix) 20 mg IVPUSH ONETIME ONE Stop: 05/27/17 23:29 Last Admin: 05/28/17 00:42 Dose: Not Given Furosemide (Lasix) 40 mg IVPUSH NOW ONE Stop: 05/30/17 11:23 Last Admin: 05/30/17 11:35 Dose: 40 mg Hydromorphone HCl (Dilaudid) 0.5 mg IVPUSH ONETIME ONE Stop: 05/26/17 12:10 Last Admin: 05/26/17 12:17 Dose: 0.5 mg Hydromorphone HCl (Dilaudid) 0.25 mg IVPUSH Q2H PRN PRN Reason: Pain (severe 7-10) Last Admin: 05/30/17 11:02 Dose: 0.25 mg Dextrose/Sodium Chloride (Dextrose 5%-Normal Saline) 1,000 mls @ 999 mls/hr IV ASDIRECTED [facility] Last Admin: 05/26/17 10:55 Dose: 999 mls/hr Levofloxacin/Dextrose 750 mg/ (Premix) 150 mls @ 100 mls/hr IV ONETIME ONE Stop: 05/26/17 12:16 Last Admin: 05/26/17 11:07 Dose: 100 mls/hr Dextrose/Sodium Chloride (Dextrose 5%-Normal Saline) 1,000 mls @ 100 mls/hr IV ASDIRECTED [facility] Last Admin: 05/26/17 12:32 Dose: 100 mls/hr Sodium Chloride (Normal Saline) 1,000 mls @ 125 mls/hr IV ASDIRECTED [facility] Last Admin: 05/27/17 15:36 Dose: 125 mls/hr Levofloxacin/Dextrose 750 mg/ (Premix) 150 mls @ 100 mls/hr IV Q24H [facility] Last Admin: 05/29/17 13:30 Dose: Not Given Sodium Chloride (Normal Saline) 1,000 mls @ 75 mls[facility] Sod/Tazobactam (Sod 4.5 gm/ Sodium Chloride) 100 mls @ 25 mls/hr IV Q8H [facility] Last Admin: 05/28/17 18:29 Dose: Not Given Sodium Chloride (Normal Saline) 500 mls @ 999 mls/hr IV ONETIME ONE Stop: 05/28/17 00:00 Last Admin: 05/28/17 00:26 Dose: 999 mls/hr Sodium Chloride (Normal Saline) 1,000 mls @ 150 mls/hr IV ASDIRECTED [facility] Last Admin: 05/30/17 11:00 Dose: 150 mls/hr Vancomycin HCl 1 gm/ Sodium (Chloride) 250 mls @ 250 mls/hr IV ONETIME ONE Stop: 05/28/17 01:59 Last Admin: 05/28/17 01:01 Dose: 250 mls/hr Piperacillin Sod/Tazobactam (Sod 4.5 gm/ Sodium Chloride) 100 mls @ 200 mls/hr IV ONETIME ONE Stop: 05/28/17 01:14 Last Admin: 05/28/17 02:12 Dose: 200 mls/hr Piperacillin Sod/Tazobactam (Sod 4.5 gm/ Sodium Chloride) 100 mls @ 25 mls/hr IV Q8H [facility] Piperacillin Sod/Tazobactam (Sod 4.5 gm/ Sodium Chloride) 100 mls @ 25 mls/hr IV Q8H [facility] Stop: 05/28/17 12:30 Last Admin: 05/28/17 09:18 Dose: 25 mls/hr Piperacillin Sod/Tazobactam (Sod 4.5 gm/ Sodium Chloride) 100 mls @ 25 mls/hr IV Q8H [facility] Last Admin: 05/30/17 08:32 Dose: 25 mls/hr Vancomycin HCl 1 gm/Vancomycin HCl 250 mg/ Sodium Chloride 250 mls @ 250 mls/ hr IV Q24H [facility] Last Admin: 05/30/17 11:41 Dose: Not Given Magnesium Sulfate 2 gm/ Premix 50 mls @ 25 mls/hr IV ONETIME ONE Stop: 05/28/17 15:58 Last Admin: 05/28/17 16:49 Dose: 25 mls/hr Lidocaine HCl (Xylocaine-Mpf 1%) Confirm Administered Dose 4 mls @ as directed .ROUTE .STK-MED ONE Stop: 05/30/17 08:20 Ibuprofen (Motrin) 600 mg PO Q6H PRN PRN Reason: Fever Last Admin: 05/28/17 04:25 Dose: 600 mg Ketamine HCl (Ketalar) Confirm Administered Dose 500 mg .ROUTE .STK-MED ONE Stop: 05/30/17 08:20 Lorazepam (Ativan) 1 mg IVPUSH Q4H PRN PRN Reason: Anxiety Last Admin: 05/30/17 08:26 Dose: 1 mg Lorazepam (Ativan) 2 mg IVPUSH ONETIME ONE Stop: 05/30/17 11:31 Last Admin: 05/30/17 11:37 Dose: 2 mg Lorazepam (Ativan) 1 mg IVPUSH Q1H PRN PRN Reason: Anxiety Last Admin: 05/30/17 23:00 Dose: 1 mg Lubiprostone (Amitiza) 24 mcg PO DAILY@0700 [facility] Last Admin: 05/30/17 09:20 Dose: Not Given Morphine Sulfate (Morphine) 5 mg IVPUSH ONETIME ONE Stop: 05/30/17 11:30 Last Admin: 05/30/17 11:34 Dose: 5 mg Morphine Sulfate (Morphine) 2 mg IVPUSH Q1H [facility] Last Admin: 05/30/17 23:00 Dose: 2 mg Non-Formulary Medication (Lactose-Reduced Food/Fiber [Jevity 1.5 Garth Liquid]) 100 mg PO BID [facility] Last Admin: 05/27/17 07:57 Dose: Not Given Ondansetron HCl (Zofran) 4 mg IVPUSH ONETIME ONE Stop: 05/26/17 12:10 Last Admin: 05/26/17 12:16 Dose: 4 mg Ondansetron HCl (Zofran Odt) 4 mg PO Q4H PRN PRN Reason: nausea, able to take PO Ondansetron HCl (Zofran) 4 mg IV Q4H PRN PRN Reason: Nausea/Vomiting Pantoprazole Sodium (Protonix) 40 mg PO DAILY@0700 [facility] Last Admin: 05/30/17 09:20 Dose: Not Given Propofol (Diprivan 20 Ml) Confirm Administered Dose 200 mg .ROUTE .STK-MED ONE Stop: 05/30/17 07:22 Propofol (Diprivan 20 Ml) Confirm Administered Dose 200 mg .ROUTE .STK-MED ONE Stop: 05/30/17 08:20 Ropinirole HCl (Requip) 10 mg PO ONETIME ONE Stop: 05/26/17 13:21 Last Admin: 05/26/17 13:56 Dose: Not Given Ropinirole HCl (Ropinirole Hcl) 10 mg PO ONETIME ONE Stop: 05/26/17 14:01 Ropinirole HCl (Requip) 10 mg PO ONETIME ONE Stop: 05/26/17 14:01 Last Admin: 05/26/17 14:03 Dose: 10 mg Ropinirole HCl (Requip) 10 mg PO ONETIME STA Stop: 05/26/17 13:56 Last Admin: 05/26/17 14:17 Dose: Not Given Ropinirole HCl (Ropinirole Hcl) 5 mg PO DAILY@1500 [facility] Last Admin: 05/29/17 15:03 Dose: Not Given Ropinirole HCl (Ropinirole Hcl) 10 mg PO BID [facility] Last Admin: 05/30/17 09:20 Dose: Not Given Ropinirole HCl (Requip) 10 mg PO ONETIME ONE Stop: 05/26/17 21:01 Last Admin: 05/26/17 22:21 Dose: 10 mg Senna (Senna) 8.6 mg PO BEDTIME [facility] Last Admin: 05/27/17 05:09 Dose: Not Given Senna/Docusate Sodium (Senna Plus) 1 tab PO BID [facility] Last Admin: 05/26/17 22:21 Dose: 1 tab Senna/Docusate Sodium (Senna Plus) 1 tab PO BID [facility] Last Admin: 05/30/17 09:20 Dose: Not Given Tizanidine HCl (Zanaflex) 4 mg PO NOW STA Stop: 05/27/17 08:28 Last Admin: 05/27/17 08:50 Dose: 4 mg Tizanidine HCl (Zanaflex) 4 mg PO TID [facility] Last Admin: 05/30/17 09:20 Dose: Not Given Vancomycin HCl (Pharmacy To Dose - Vancomycin) 1 dose .XX ASDIRECTED MYAH *Q Meaningful Use (DIS) - VTE *Q VTE Criteria *Q: - Stroke *Q Stroke Criteria *Q: - AMI *Q AMI Criteria *Q:
== END 2017-05-30 23:20 | disposition expired | DRG 871 ==
LOC: JD.ED 09:58 → JD.MS 13:42 → UNDOADMIN 13:42 → JD.MS 14:01
PROVIDERS: ADMIT Emergency Medicine; ATTEND Internal Medicine Cardiovascular Disease
DX: A41.9 Sepsis, unspecified organism (principal); J18.9 Pneumonia, unspecified organism; T83.511A Infection and inflammatory reaction due to indwelling urethral catheter, initial encounter; G23.1 Progressive supranuclear ophthalmoplegia [Steele-Richardson-Olszewski]; I25.810 Atherosclerosis of coronary artery bypass graft(s) without angina pectoris; K94.23 Gastrostomy malfunction; E78.00 Pure hypercholesterolemia, unspecified; N39.0 Urinary tract infection, site not specified; R06.03 Acute respiratory distress; I69.320 Aphasia following cerebral infarction; N28.9 Disorder of kidney and ureter, unspecified; I10 Essential (primary) hypertension; E78.5 Hyperlipidemia, unspecified; N31.9 Neuromuscular dysfunction of bladder, unspecified; I87.2 Venous insufficiency (chronic) (peripheral); Z95.1 Presence of aortocoronary bypass graft; Z87.01 Personal history of pneumonia (recurrent); R33.9 Retention of urine, unspecified; M19.90 Unspecified osteoarthritis, unspecified site; G20 Parkinson's disease; Z93.1 Gastrostomy status; R13.10 Dysphagia, unspecified; K59.09 Other constipation; F32.9 Major depressive disorder, single episode, unspecified; G89.29 Other chronic pain; M54.9 Dorsalgia, unspecified; Z87.891 Personal history of nicotine dependence; Z66 Do not resuscitate; Z79.899 Other long term (current) drug therapy; H91.90 Unspecified hearing loss, unspecified ear; H54.7 Unspecified visual loss; B95.61 Methicillin susceptible Staphylococcus aureus infection as the cause of diseases classified elsewhere; B96.5 Pseudomonas (aeruginosa) (mallei) (pseudomallei) as the cause of diseases classified elsewhere; B95.2 Enterococcus as the cause of diseases classified elsewhere; B96.89 Other specified bacterial agents as the cause of diseases classified elsewhere; Z51.5 Encounter for palliative care; Z86.14 Personal history of Methicillin resistant Staphylococcus aureus infection
CPT/HCPCS: 36415; 36600; 51702; 71010; 71010-26; 74000; 74000-26; 80048; 80053; 80076; 81001; 82553; 82803; 83605; 83735; 83880; 84484; 85025; 85610; 86140; 86738; 87040; 87070; 87086; 87088; 87186; 87486; 87581; 87633; 87641; 87798; 87804; 87899; 92610-GN; 93005; 93010; 94640; 94660; 94760; 94761; 96361; 96365; 96366; 96375; 99285-25; A9270-GY; J1170; J1650; J1940; J1956; J2060; J2270; J2405; J2543; J2704; J3370; J3475; J7030; J7040; J7042; J7050; Q9963